=== PATIENT | female | born 1950 | race Caucasian/White ===

== ENCOUNTER → 2017-02-17 | Outpatient (CLI) | payer MEDICARE, OTHER ==
[2017-02-17 09:51] LABS: Basophils # (auto) 0 uL; Basophils % (auto) 0.4 % (0.0-2.0); Eosinophils # (auto) 0.2 uL; Eosinophils % (auto) 3.5 % (0.0-7.0); Hematocrit 39.2 % (36.0-46.0); Hemoglobin 13.5 g/dL (12.2-16.2); Lymphocytes # (auto) 1.5 uL; Lymphocytes % (auto) 26.3 % (10.0-50.0); Mean Corpuscular Hemoglobin 31.7 pg (28.0-32.0); Mean Corpuscular Hgb Conc. 34.4 g/dL (32.0-36.0); Mean Corpuscular Volume 92.1 fL (80.0-100.0); Mean Platelet Volume 6.7 fL (7.4-10.4); Monocytes # (auto) 0.4 uL; Monocytes % (auto) 7.7 % (0.0-12.0); Neutrophils # (auto) 3.4 uL; Neutrophils % (auto) 62.1 % (37.0-80.0); Platelet Count (auto) 341 10^3/uL (140-450); Red Cell Distribution Width 12.9 % (11.6-16.0); White Blood Cell 5.5 10^3/uL (4.4-10.8)
[2017-02-17 10:06] LABS: Urine Bilirubin Negative (Negative); Urine Blood Negative /uL (Negative); Urine Color Yellow (Yellow); Urine Glucose Normal (Normal); Urine Ketone Negative (Negative); Urine Mucus FEW (None Seen); Urine RBC 1 /hpf (0 - 4); Urine Squamous Epithelial Cell FEW /hpf (<5); Urine Urobilinogen Normal (Negative); Urine pH 5.5 (5.0-8.0)
[2017-02-17 10:17] LABS: Albumin 3.9 g/dL (3.4-5.0); BUN/Creatinine Ratio 39.7; Bilirubin, Total 0.6 mg/dL (0.2-1.0); Calcium 9.2 mg/dL (8.5-10.1); Potassium 4.6 mmol/L (3.5-5.1); Total Protein 7.6 g/dL (6.4-8.2)
[2017-02-17 10:31] LABS: Urine Nitrite POSITIVE (Negative)
[2017-02-17 13:53] LABS: INR 0.91 (0.9-1.15); Prothrombin Time 10.3 sec (9.37-12.3)
== END | disposition home or self-care (01) ==
LOC: LAB 09:25
PROVIDERS: ATTEND Orthopaedic Surgery
DX: S43.421A Sprain of right rotator cuff capsule, initial encounter (principal)
CPT/HCPCS: 36415; 80053; 81001; 85025; 85610; 85730

== ENCOUNTER 2018-11-27 19:50 | Emergency (ER) | payer MEDICARE, OTHER ==
[~2018-11-27] VITALS: Ht 175.3 cm; Wt 81.6 kg
[2018-11-27 19:56] VITALS: BP 120/80
== END 2018-11-27 21:44 | disposition left against medical advice (07) ==
LOC: ER 19:50 → EDBD 19:50 → ER 21:44
DX: R55 Syncope and collapse (principal); Z53.21 Procedure and treatment not carried out due to patient leaving prior to being seen by health care provider

== ENCOUNTER 2024-03-18 23:30 | Inpatient (IN) | payer MEDICARE, OTHER ==
[~2024-03-18] VITALS: Ht 167.6 cm; Wt 89.0 kg
[~2024-03-18 23:30] MED LIST: AZIT-43 PO; PRED20TA2 PO
[2024-03-18] MEDS: cefTRIAXone 1GM/50ML D5W 50 ML IV ONE (23:44)
[2024-03-18 23:54] VITALS: PULSE 100; RESP 30; O2SAT 95
[2024-03-18 23:59] LABS: Basophils # (auto) 0.1 10 ^3/uL (0-0.2); Basophils % (auto) 0.6 % (0.0-2.0); Eosinophils # (auto) 0.5 10 ^3/uL (0-0.8); Eosinophils % (auto) 3.5 % (0.0-7.0); Hemoglobin 14.2 g/dL (12.2-16.2); Lymphocytes # (auto) 4.4 10 ^3/uL (0.4-5.4); Mean Corpuscular Hemoglobin 32.6 pg (28.0-32.0); Mean Corpuscular Hgb Conc. 33.8 g/dL (32.0-36.0); Mean Corpuscular Volume 96.5 fL (80.0-100.0); Monocytes # (auto) 0.7 10 ^3/uL (0-1.3); Monocytes % (auto) 4.8 % (0.0-12.0); Neutrophils # (auto) 8.9 10 ^3/uL (1.6-8.6); Neutrophils % (auto) 61.1 % (37.0-80.0); Red Blood Cells 4.36 10^6/uL (4.0-5.20); Red Cell Distribution Width 14.5 % (11.8-14.3); White Blood Cell 14.5 10^3/uL (4.4-10.8)
[2024-03-19] VITALS (33 sets, daily range): BP systolic 85–145; BP diastolic 41–74; PULSE 53–103; RESP 16–20; TEMP 99–99.9; O2SAT 94–99
[2024-03-19 00:01] LABS: Chloride 105 mmol/L (98-107); Potassium 3.3 mmol/L (3.5-5.1); Sodium 139 mmol/L (136-145)
[2024-03-19 00:02] LABS: Anion Gap 10 (5-15); Calcium 9.3 mg/dL (8.7-10.4); Carbon Dioxide 24 mmol/L (20-30)
[2024-03-19 00:07] LABS: BUN/Creatinine Ratio 21.6 (10.0-20.0); Blood Urea Nitrogen 19 mg/dL (9-23); Glucose 181 mg/dL (74-106)
[2024-03-19] MEDS: AZITHROMYCIN 500MG/ 250ML 250 ML IV ONE (00:14)
[2024-03-19] MEDS: methylPREDNISolone SOD SUCC 125 MG/2 ML VL IV ONE (00:19)
[2024-03-19 00:24] LABS: Lactic Acid w/Reflex 2.3 mmol/L (0.4-2.0)
[2024-03-19] MEDS: ALBUTEROL SULF 2.5 MG/0.5ML(0.5%) NEB SOLN NEB ONE (00:26)
[2024-03-19] MEDS: IPRATROPIUM BROM 0.5 MG/2.5ML INH SOL NEB ONE (00:26)
[2024-03-19] MEDS: LORazepam 2MG/ML-1ML VIAL IV ONE (01:13)
[2024-03-19] MEDS: SUCCINYLCHOLINE CHLORIDE 20 MG/ML 10ML VIAL IV ONE ×2 (02:04→02:13)
[2024-03-19] MEDS: ETOMIDATE (2MG/ML) 20ML VIAL IV ONE ×2 (02:12→03:19)
[2024-03-19] MEDS: PROPOFOL 100 ML IV SCH (02:16)
[2024-03-19] MEDS: ROCURONIUM 10MG/ML 10ML VIAL IV ONE ×3 (02:38→04:39)
[2024-03-19] MEDS: PROPOFOL 100 ML IV ONE (03:20)
[2024-03-19] MEDS: IOHEXOL 350 MG/ML 100ML IJ ONE (03:57)
[2024-03-19 04:15] LABS: Base Excess -5.6 mmol/L (-2.0-2.0)
[2024-03-19] MEDS: fentaNYL Drip 2500mCg/250mlNS 250 ML IV SCH (04:33)
[2024-03-19 04:52] LABS: INR 0.98 (0.9-1.15); Partial Thromboplastin Time 23.1 SEC (24.5-34.5); Prothrombin Time 10.4 sec (9.3-11.8)
[2024-03-19 05:11] LABS: Urine Bacteria None Seen /hpf (None Seen)
[2024-03-19 05:30] LABS: Urine Blood Negative /uL (Negative); Urine Clarity Clear (Clear); Urine Color Light-Yellow (Yellow); Urine Hyaline Cast FEW /lpf (0 - 2); Urine Mucus FEW (None Seen); Urine Protein, UAD TRACE (Negative); Urine Urobilinogen Normal (Negative); Urine WBC <1 /hpf (0 - 5)
[2024-03-19] MEDS ORDERED: MORPHINE SULFATE INJ 2 MG/ml SYRG IV PRN (06:15)
[2024-03-19] MEDS ORDERED: ACETAMINOPHEN 650 MG RECT SUPP PR PRN (06:15)
[2024-03-19] MEDS ORDERED: DOCUSATE SOD 100 MG CAP PO PRN (06:15)
[2024-03-19] MEDS ORDERED: DEXTROSE (50%) 50ML SYRG IV PRN (06:15)
[2024-03-19] MEDS: POTASSIUM CHL 20MEQ/100ML 100 ML IV ONE (06:15)
[2024-03-19] MEDS ORDERED: NITROGLYCERIN 0.4 MG SL TAB SL PRN (06:15)
[2024-03-19 06:17] LABS: Base Excess -1.9 mmol/L (-2.0-2.0)
[2024-03-19] MEDS: NOREPINEPHRINE 8 MG/250ML KIT 250 ML IV SCH (06:25)
[2024-03-19] MEDS: HEPARIN SODIUM (PORCINE) 5000 UNITS/ML 1ML VIAL IV ONE (06:44)
[2024-03-19] MEDS: HEPARIN DRIP/D5W 100UNITS/ML 250 ML IV SCH (06:57)
[2024-03-19] MEDS: ACCU-CHEK COMFORT CURVE STRIP VI SCH (07:00)
[2024-03-19] MEDS: InsuLIN REG 1unit/0.01ml Soln (100units/ml) SC SCH (07:00)
[2024-03-19] MEDS: MIDAZOLAM DRIP 50 mg/50mL 50 ML IV SCH (07:30)
[2024-03-19 09:21] LABS: Basophils # (auto) 0 10 ^3/uL (0-0.2); Basophils % (auto) 0.1 % (0.0-2.0); Eosinophils # (auto) 0 10 ^3/uL (0-0.8); Eosinophils % (auto) 0.1 % (0.0-7.0); Hematocrit 38.9 % (36.0-46.0); Hemoglobin 13.4 g/dL (12.2-16.2); Lymphocytes # (auto) 0.5 10 ^3/uL (0.4-5.4); Lymphocytes % (auto) 3.9 % (10.0-50.0); Mean Corpuscular Hemoglobin 33.1 pg (28.0-32.0); Mean Corpuscular Hgb Conc. 34.5 g/dL (32.0-36.0); Mean Corpuscular Volume 95.9 fL (80.0-100.0); Monocytes # (auto) 0.3 10 ^3/uL (0-1.3); Neutrophils % (auto) 93.9 % (37.0-80.0); Red Blood Cells 4.06 10^6/uL (4.0-5.20); Red Cell Distribution Width 14.7 % (11.8-14.3); White Blood Cell 12.8 10^3/uL (4.4-10.8)
[2024-03-19 09:32] LABS: Alanine Aminotransferase 34 U/L (7-40); Albumin 4.3 g/dL (3.2-4.8); Alkaline Phosphatase 58 U/L (46-116); Anion Gap 12 (5-15); Aspartate Aminotransferase 38 U/L (13-40); BUN/Creatinine Ratio 21.3 (10.0-20.0); Blood Urea Nitrogen 17 mg/dL (9-23); Calcium 8.8 mg/dL (8.5-10.1); Carbon Dioxide 24 mmol/L (20-30); Chloride 102 mmol/L (98-107); Cholesterol 181 mg/dL (< 200); Glucose 196 mg/dL (74-106); LDL Cholesterol 116 mg/dL (< 100); Magnesium 1.7 mg/dL (1.6-2.6); Sodium 138 mmol/L (136-145); Triglycerides 95 mg/dL (< 150)
[2024-03-19 09:33] LABS: HDL Cholesterol 51 mg/dL (40-59)
[2024-03-19 09:34] LABS: Total Protein 6.6 g/dL (5.7-8.2)
[2024-03-19] MEDS ORDERED: ENOXAPARIN SOD 40 MG/0.4 ML SYRINGE SC SCH (10:00)
[2024-03-19] MEDS: ENOXAPARIN SOD 80 MG/0.8ML SYRINGE SC SCH (10:00)
[2024-03-19] MEDS: methylPREDNISolone SOD SUCC 40 MG/ML VL IV ONE (13:04)
[2024-03-19] MEDS: PANTOPRAZOLE 40 MG/10 ML VIAL INJ IV ONE (13:04)
[2024-03-19] MEDS: DOXYCYCLINE 100MG/250ML 250 ML IV SCH (13:05)
[2024-03-19 13:43] LABS: Lactic Acid w/Reflex 4.6 mmol/L (0.4-2.0)
[2024-03-19] MEDS: cefTRIAXone 1GM/50ML D5W 50 ML IV SCH (21:00)
[2024-03-19] MEDS: methylPREDNISolone SOD SUCC 40 MG/ML VL IV SCH (21:50)
[2024-03-19] MEDS: Jevity 1.2 Cal/Fiber 1 Liter GT SCH (22:00)
[2024-03-19] MEDS ORDERED: AZITHROMYCIN 500MG/ 250ML 250 ML IV SCH (22:00)
[2024-03-20] VITALS (110 sets, daily range): BP systolic 74–153; BP diastolic 31–110; PULSE 40–98; RESP 14–20; TEMP 98.1–99; O2SAT 90–100
[2024-03-20 04:32] LABS: Alanine Aminotransferase 33 U/L (7-40); Albumin 4.1 g/dL (3.2-4.8); Alkaline Phosphatase 51 U/L (46-116); Anion Gap 9 (5-15); Aspartate Aminotransferase 48 U/L (13-40); BUN/Creatinine Ratio 21.1 (10.0-20.0); Basophils # (auto) 0 10 ^3/uL (0-0.2); Blood Urea Nitrogen 15 mg/dL (9-23); Calcium 9.3 mg/dL (8.7-10.4); Carbon Dioxide 24 mmol/L (20-30); Chloride 105 mmol/L (98-107); Eosinophils # (auto) 0 10 ^3/uL (0-0.8); Glucose 209 mg/dL (74-106); Hematocrit 39.5 % (36.0-46.0); Hemoglobin 13.1 g/dL (12.2-16.2); Lymphocytes # (auto) 0.6 10 ^3/uL (0.4-5.4); Lymphocytes % (auto) 3.9 % (10.0-50.0); Magnesium 1.9 mg/dL (1.6-2.6); Mean Corpuscular Hgb Conc. 33.2 g/dL (32.0-36.0); Mean Corpuscular Volume 96.3 fL (80.0-100.0); Monocytes # (auto) 0.6 10 ^3/uL (0-1.3); Monocytes % (auto) 4.1 % (0.0-12.0); Neutrophils # (auto) 13.2 10 ^3/uL (1.6-8.6); Potassium 3.5 mmol/L (3.5-5.1); Red Blood Cells 4.11 10^6/uL (4.0-5.20); Red Cell Distribution Width 14.8 % (11.8-14.3); Sodium 138 mmol/L (136-145); White Blood Cell 14.4 10^3/uL (4.4-10.8)
[2024-03-20 04:33] LABS: Bilirubin, Total 0.8 mg/dL (0.2-1.0); Total Protein 6.5 g/dL (5.7-8.2)
[2024-03-20 04:39] LABS: Lactic Acid w/Reflex 3.3 mmol/L (0.4-2.0)
[2024-03-20 09:15] LABS: Base Excess -1.4 mmol/L (-2.0-2.0)
[2024-03-20] MEDS: NOREPINEPHRINE 8 MG/250ML KIT 250 ML IV SCH (09:30)
[2024-03-20] MEDS: MAGNESIUM SULFATE 1GM/100ML 100 ML IV ONE (10:52)
[2024-03-20] MEDS: PANTOPRAZOLE 40 MG/10 ML VIAL INJ IV SCH (10:53)
[2024-03-20] MEDS: methylPREDNISolone SOD SUCC 40 MG/ML VL IV SCH (10:54)
[2024-03-20] MEDS: POTASSIUM EFFERVESENT TAB 25 MEQ GT ONE (10:55)
[2024-03-20] MEDS ORDERED: ROSU20TA14 PO (18:50)
[2024-03-20] MEDS ORDERED: POTA-36 PO (18:50)
[2024-03-20] MEDS ORDERED: FURO20TA3 PO (18:50)
[2024-03-20] MEDS ORDERED: CITA-73 PO (18:50)
[2024-03-20] MEDS ORDERED: NIFE1TAB31 PO (18:50)
[2024-03-20] MEDS ORDERED: ASPI-543 PO (18:50)
[2024-03-20] MEDS ORDERED: ALBU2TAB11 PO (18:50)
[2024-03-20] MEDS ORDERED: HYDR25TA88 PO (18:50)
[2024-03-20] MEDS ORDERED: APIX5TAB PO (18:50)
[2024-03-20] MEDS ORDERED: CHOL20007 PO (18:50)
[2024-03-20] MEDS ORDERED: LISI20TA56 PO (18:50)
[2024-03-20 19:19] LABS: Base Excess -0.2 mmol/L (-2.0-2.0)
[2024-03-21] VITALS (103 sets, daily range): BP systolic 101–181; BP diastolic 40–98; PULSE 41–96; RESP 7–27; TEMP 98.1–98.6; O2SAT 91–100
[2024-03-21 03:57] LABS: Basophils # (auto) 0 10 ^3/uL (0-0.2); Basophils % (auto) 0.1 % (0.0-2.0); Eosinophils # (auto) 0 10 ^3/uL (0-0.8); Hematocrit 37.1 % (36.0-46.0); Hemoglobin 12.2 g/dL (12.2-16.2); Lymphocytes # (auto) 0.7 10 ^3/uL (0.4-5.4); Lymphocytes % (auto) 5.4 % (10.0-50.0); Mean Corpuscular Hgb Conc. 32.9 g/dL (32.0-36.0); Mean Corpuscular Volume 97.2 fL (80.0-100.0); Monocytes # (auto) 0.9 10 ^3/uL (0-1.3); Monocytes % (auto) 6.9 % (0.0-12.0); Neutrophils % (auto) 87.6 % (37.0-80.0); Nucleated Red Blood Cells % 0.2 %; Red Blood Cells 3.81 10^6/uL (4.0-5.20); Red Cell Distribution Width 14.9 % (11.8-14.3); White Blood Cell 12.5 10^3/uL (4.4-10.8)
[2024-03-21 04:33] LABS: Alanine Aminotransferase 28 U/L (7-40); Alkaline Phosphatase 43 U/L (46-116); BUN/Creatinine Ratio 29.3 (10.0-20.0); Blood Urea Nitrogen 22 mg/dL (9-23); Chloride 105 mmol/L (98-107); Glucose 170 mg/dL (74-106); Magnesium 2.3 mg/dL (1.6-2.6); Potassium 4.2 mmol/L (3.5-5.1); Sodium 141 mmol/L (136-145)
[2024-03-21 04:34] LABS: Albumin 3.8 g/dL (3.2-4.8); Aspartate Aminotransferase 40 U/L (13-40)
[2024-03-21 04:35] LABS: Bilirubin, Total 0.5 mg/dL (0.2-1.0); Total Protein 6.1 g/dL (5.7-8.2)
[2024-03-21 05:09] LABS: Anion Gap 9 (5-15); Carbon Dioxide 27 mmol/L (20-30)
[2024-03-21 07:37] LABS: Base Excess 4.5 mmol/L (-2.0-2.0)
[2024-03-21] MEDS: SODIUM CHLORIDE 0.9% 2,000 ML IV ONE (14:13)
[2024-03-21] MEDS: EPINEPHrine HCL 0.5 ML NEB NEB ONE (16:15)
[2024-03-21] MEDS: DexAMETHasone SOD PHOS 10MG/1ML VIAL INJ IV ONE (16:15)
[2024-03-21] MEDS: DexAMETHasone SOD PHOS 4 MG/1ML SDV INJ ONE (16:17)
[2024-03-21] MEDS: EPINEPHrine HCL 0.5 ML NEB ONE (16:17)
[2024-03-21 16:28] LABS: Lactic Acid w/Reflex 5.9 mmol/L (0.4-2.0)
[2024-03-21] MEDS: SODIUM CHLORIDE 0.9% 1,000 ML IV SCH (17:39)
[2024-03-21 17:42] LABS: Base Excess 1.8 mmol/L (-2.0-2.0)
[2024-03-21] MEDS ORDERED: hydrALAZINE HCL 20 MG/ML VL IV PRN (18:00)
[2024-03-21] MEDS ORDERED: DexAMETHasone SOD PHOS 4 MG/1ML SDV INJ IV SCH (18:00)
[2024-03-21] MEDS: ALBUTEROL SULF 2.5 MG/0.5ML(0.5%) NEB SOLN NEB PRN (19:03)
[2024-03-21] MEDS: IPRATROPIUM BROM 0.5 MG/2.5ML INH SOL NEB PRN (19:03)
[2024-03-21] MEDS: LACTULOSE 20Gm/30ML SOLN PO SCH (22:33)
[2024-03-22] VITALS (36 sets, daily range): BP systolic 138–169; BP diastolic 63–87; PULSE 57–74; RESP 9–20; TEMP 97.8–99; O2SAT 95–100
[2024-03-22] MEDS: DexAMETHasone SOD PHOS 4 MG/1ML SDV INJ IV SCH
[2024-03-22 04:43] LABS: Basophils # (auto) 0 10 ^3/uL (0-0.2); Basophils % (auto) 0.3 % (0.0-2.0); Eosinophils # (auto) 0 10 ^3/uL (0-0.8); Hematocrit 37.1 % (36.0-46.0); Hemoglobin 12.6 g/dL (12.2-16.2); Lymphocytes # (auto) 0.5 10 ^3/uL (0.4-5.4); Lymphocytes % (auto) 4.5 % (10.0-50.0); Mean Corpuscular Hemoglobin 32.7 pg (28.0-32.0); Mean Corpuscular Volume 96.2 fL (80.0-100.0); Monocytes # (auto) 0.3 10 ^3/uL (0-1.3); Neutrophils # (auto) 10.2 10 ^3/uL (1.6-8.6); Neutrophils % (auto) 92.2 % (37.0-80.0); Red Blood Cells 3.86 10^6/uL (4.0-5.20); Red Cell Distribution Width 14.6 % (11.8-14.3); White Blood Cell 11.1 10^3/uL (4.4-10.8)
[2024-03-22 04:55] LABS: Anion Gap 5 (5-15); Carbon Dioxide 27 mmol/L (20-30); Chloride 108 mmol/L (98-107); Potassium 3.9 mmol/L (3.5-5.1); Sodium 140 mmol/L (136-145)
[2024-03-22 04:56] LABS: Calcium 8.5 mg/dL (8.5-10.1)
[2024-03-22 05:01] LABS: Blood Urea Nitrogen 18 mg/dL (9-23); Glucose 152 mg/dL (74-106)
[2024-03-22] MEDS: ONDANSETRON HCL 4 MG/2 ML VIAL IV PRN (05:08)
[2024-03-22 05:22] LABS: Lactic Acid w/Reflex 2.4 mmol/L (0.4-2.0)
[2024-03-22] MEDS ORDERED: LACTULOSE 20Gm/30ML SOLN PO PRN (06:45)
[2024-03-22] MEDS: SODIUM CHLORIDE 0.9% 1,000 ML IV SCH (09:35)
[2024-03-22] MEDS: NIFEdipine ER 30 MG TAB PO SCH (09:39)
[2024-03-22] MEDS ORDERED: PATIENTS OWN MEDICATION (Citalopram Hydrobromide 40 MG) PO SCH (10:00)
[2024-03-22 11:04] LABS: Rapid Influenza A Negative (Negative); Rapid Influenza B Negative (Negative)
[2024-03-22] MEDS: CITALOPRAM HYDROBR 20 MG TAB PO SCH (12:40)
[2024-03-22] MEDS: LISINOPRIL 20 MG TAB PO SCH (12:41)
[2024-03-22 12:47] LABS: COVID19 ANTIGEN SOFIA FIA NEGATIVE (NEGATIVE)
[2024-03-22] MEDS ORDERED: hydrALAZINE HCL 20 MG/ML VL IV PRN ×2 (14:00)
[2024-03-22] MEDS ORDERED: ALBU108A5 INH (16:05)
[2024-03-22] MEDS ORDERED: ALBU0.084 INH (16:09)
[2024-03-22] MEDS ORDERED: HYDR25TA4 PO (16:09)
[2024-03-22] MEDS ORDERED: BUDE1AER16 INH (16:09)
[2024-03-22] MEDS: LORazepam 0.5 MG TAB PO PRN (16:50)
[2024-03-22] MEDS ORDERED: PATIENTS OWN MEDICATION (Rosuvastatin Calcium (Crestor) 20 MG) PO SCH (22:00)
[2024-03-22] MEDS: ATORVASTATIN 20 MG TAB PO SCH (22:08)
[2024-03-23] VITALS (7 sets, daily range): BP systolic 124–129; BP diastolic 63–64; PULSE 61–75; RESP 16–18; TEMP 36.4; O2SAT 95–98
[2024-03-23] MEDS: DOXYCYCLINE 100MG/250ML 250 ML IV SCH (05:32)
[2024-03-23 06:43] LABS: Alanine Aminotransferase 31 U/L (7-40); Albumin 4.1 g/dL (3.2-4.8); Alkaline Phosphatase 49 U/L (46-116); Anion Gap 6 (5-15); Aspartate Aminotransferase 24 U/L (13-40); BUN/Creatinine Ratio 24.1 (10.0-20.0); Bilirubin, Total 0.9 mg/dL (0.2-1.0); Blood Urea Nitrogen 14 mg/dL (9-23); Calcium 9.3 mg/dL (8.5-10.1); Carbon Dioxide 29 mmol/L (20-30); Chloride 104 mmol/L (98-107); Glucose 118 mg/dL (74-106); Potassium 4.4 mmol/L (3.5-5.1); Sodium 139 mmol/L (136-145); Total Protein 6.1 g/dL (5.7-8.2)
[2024-03-23 06:49] LABS: Basophils # (auto) 0 10 ^3/uL (0-0.2); Basophils % (auto) 0.1 % (0.0-2.0); Eosinophils # (auto) 0 10 ^3/uL (0-0.8); Hemoglobin 13.5 g/dL (12.2-16.2); Lymphocytes # (auto) 0.8 10 ^3/uL (0.4-5.4); Lymphocytes % (auto) 7.3 % (10.0-50.0); Mean Corpuscular Hemoglobin 32.4 pg (28.0-32.0); Mean Corpuscular Hgb Conc. 33.9 g/dL (32.0-36.0); Mean Corpuscular Volume 95.6 fL (80.0-100.0); Monocytes % (auto) 8.9 % (0.0-12.0); Neutrophils # (auto) 9.3 10 ^3/uL (1.6-8.6); Neutrophils % (auto) 83.7 % (37.0-80.0); Red Blood Cells 4.18 10^6/uL (4.0-5.20); Red Cell Distribution Width 14.3 % (11.8-14.3); White Blood Cell 11.1 10^3/uL (4.4-10.8)
[2024-03-23] MEDS ORDERED: DOX100T PO (09:19)
[2024-03-23] MEDS: hydrALAZINE HCL 25 MG TAB PO SCH (10:23)
[2024-03-23] MEDS ORDERED: DOXYCYCLINE 100 MG TAB/CAP PO SCH (22:00)
== END 2024-03-23 13:31 | disposition home health service (06) | DRG 871 ==
LOC: EDBD 23:30 → ER 23:30 → TELE 03-19 06:23 → ICU WEST 03-19 18:25 → TELE-WESTW 03-22 15:55
PROVIDERS: ADMIT Internal Medicine Pulmonary Disease; ATTEND Internal Medicine Pulmonary Disease
PROC: 5A0935A Assistance with Respiratory Ventilation, Less than 24 Consecutive Hours, High Flow/Velocity Cannula (ICD-10-PCS; 2024-03-18)
PROC: 5A1945Z Respiratory Ventilation, 24-96 Consecutive Hours (ICD-10-PCS; principal; 2024-03-19)
PROC: 0BH17EZ Insertion of Endotracheal Airway into Trachea, Via Natural or Artificial Opening (ICD-10-PCS; 2024-03-19)
DX: A41.9 Sepsis, unspecified organism (principal); G93.41 Metabolic encephalopathy; J15.69 Pneumonia due to other Gram-negative bacteria; I21.A1 Myocardial infarction type 2; R65.21 Severe sepsis with septic shock; J96.01 Acute respiratory failure with hypoxia; J96.02 Acute respiratory failure with hypercapnia; J15.9 Unspecified bacterial pneumonia; J12.9 Viral pneumonia, unspecified; J44.0 Chronic obstructive pulmonary disease with (acute) lower respiratory infection; J44.1 Chronic obstructive pulmonary disease with (acute) exacerbation; F10.139 Alcohol abuse with withdrawal, unspecified; Z20.822 Contact with and (suspected) exposure to COVID-19; E78.5 Hyperlipidemia, unspecified; E87.6 Hypokalemia; I10 Essential (primary) hypertension; I71.21 Aneurysm of the ascending aorta, without rupture; E66.01 Morbid (severe) obesity due to excess calories; I35.0 Nonrheumatic aortic (valve) stenosis; Y90.9 Presence of alcohol in blood, level not specified; Z68.35 Body mass index [BMI] 35.0-35.9, adult; Z79.01 Long term (current) use of anticoagulants; Z81.8 Family history of other mental and behavioral disorders; Z80.42 Family history of malignant neoplasm of prostate; Z86.718 Personal history of other venous thrombosis and embolism; Z91.041 Radiographic dye allergy status
CPT/HCPCS: 36415; 36600; 71045; 71275; 80048; 80053; 80061; 80320; 81001; 82140; 82805; 82962; 83036; 83605; 83735; 83880; 84443; 84484; 85025; 85379; 85610; 85730; 87040; 87070; 87081; 87086; 87205; 87426; 87804; 92610; 93005; 93306; 93970; 94002; 94003; 94640; 97163; 99291; C9113; G0378; J0330; J1100; J1815; J2405; J2704; J3480; J3490

== ENCOUNTER 2024-03-29 07:17 | Inpatient (IN) | payer MEDICARE, OTHER ==
[2024-03-29] VITALS (7 sets, daily range): BP systolic 109; BP diastolic 65; PULSE 67–77; RESP 14–21; O2SAT 95–100
[~2024-03-29] VITALS: Ht 175.3 cm; Wt 84.3 kg
[~2024-03-29 07:17] MED LIST changes: +ALBU0.084 INH; +ALBU108A5 INH; +APIX5TAB PO; -AZIT-43 PO; +BUDE1AER16 INH; +CHOL20007 PO; +CITA-73 PO; +DOX100T PO; +FURO20TA3 PO; +HYDR25TA4 PO; +HYDR25TA88 PO; +LISI20TA56 PO; +NIFE1TAB31 PO; +POTA-36 PO; -PRED20TA2 PO; +ROSU20TA14 PO
[2024-03-29] MEDS: SODIUM CHLORIDE 0.9% 1,000 ML IV ONE (08:30)
[2024-03-29] MEDS: methylPREDNISolone SOD SUCC 125 MG/2 ML VL IV ONE (08:50)
[2024-03-29] MEDS: AZITHROMYCIN 500MG/ 250ML 250 ML IV ONE (08:50)
[2024-03-29 08:53] LABS: Basophils # (auto) 0 10 ^3/uL (0-0.2); Basophils % (auto) 0.2 % (0.0-2.0); Eosinophils # (auto) 0.5 10 ^3/uL (0-0.8); Eosinophils % (auto) 5.4 % (0.0-7.0); Hematocrit 40.4 % (36.0-46.0); Hemoglobin 13.7 g/dL (12.2-16.2); Lymphocytes # (auto) 1.3 10 ^3/uL (0.4-5.4); Lymphocytes % (auto) 14.4 % (10.0-50.0); Mean Corpuscular Hemoglobin 32.6 pg (28.0-32.0); Mean Corpuscular Volume 95.9 fL (80.0-100.0); Monocytes # (auto) 0.7 10 ^3/uL (0-1.3); Monocytes % (auto) 7.8 % (0.0-12.0); Neutrophils # (auto) 6.7 10 ^3/uL (1.6-8.6); Neutrophils % (auto) 72.2 % (37.0-80.0); Red Blood Cells 4.22 10^6/uL (4.0-5.20); Red Cell Distribution Width 14.2 % (11.8-14.3); White Blood Cell 9.3 10^3/uL (4.4-10.8)
[2024-03-29] MEDS: IPRATROPIUM BROM 0.5 MG/2.5ML INH SOL NEB ONE ×2 (08:58→14:01)
[2024-03-29] MEDS: ALBUTEROL SULF 2.5 MG/0.5ML(0.5%) NEB SOLN NEB ONE ×2 (08:58→14:01)
[2024-03-29 09:09] LABS: INR 1.01 (0.9-1.15); Partial Thromboplastin Time 21.8 SEC (24.5-34.5); Prothrombin Time 10.7 sec (9.3-11.8)
[2024-03-29 09:11] LABS: Alanine Aminotransferase 51 U/L (7-40); Albumin 4.3 g/dL (3.2-4.8); Alkaline Phosphatase 47 U/L (46-116); Anion Gap 5 (5-15); Aspartate Aminotransferase 24 U/L (13-40); BUN/Creatinine Ratio 15.6 (10.0-20.0); Blood Urea Nitrogen 10 mg/dL (9-23); Calcium 9.2 mg/dL (8.5-10.1); Carbon Dioxide 28 mmol/L (20-30); Chloride 106 mmol/L (98-107); Glucose 113 mg/dL (74-106); Magnesium 1.5 mg/dL (1.6-2.6); Potassium 3.5 mmol/L (3.5-5.1); Sodium 139 mmol/L (136-145)
[2024-03-29 09:12] LABS: Total Protein 6.4 g/dL (5.7-8.2)
[2024-03-29] MEDS: IOHEXOL 350 MG/ML 100ML IJ ONE (12:49)
[2024-03-29] MEDS: MAGNESIUM SULFATE 1GM/100ML 100 ML IV SCH (13:00)
[2024-03-29] MEDS ORDERED: LORazepam 0.5 MG TAB PO PRN (14:00)
[2024-03-29] MEDS ORDERED: ACETAMINOPHEN 325 MG TAB PO PRN ×2 (14:00→14:30)
[2024-03-29] MEDS ORDERED: NITROGLYCERIN 0.4 MG SL TAB SL PRN ×2 (14:00→14:30)
[2024-03-29] MEDS ORDERED: MORPHINE SULFATE INJ 2 MG/ml SYRG IV PRN ×4 (14:00→15:00)
[2024-03-29] MEDS ORDERED: HYDROcodone-ACET 5/325MG TAB PO PRN ×2 (14:00→14:30)
[2024-03-29] MEDS ORDERED: ONDANSETRON HCL 4 MG/2 ML VIAL IV PRN ×2 (14:00→14:30)
[2024-03-29] MEDS ORDERED: ALBUTEROL SULF 2.5 MG/0.5ML(0.5%) NEB SOLN NEB SCH (14:00)
[2024-03-29] MEDS ORDERED: DOCUSATE SOD 100 MG CAP PO PRN (14:00)
[2024-03-29] MEDS ORDERED: IPRATROPIUM BROM 0.5 MG/2.5ML INH SOL NEB SCH (14:00)
[2024-03-29 15:17] LABS: Urine Bacteria None Seen /hpf (None Seen)
[2024-03-29 15:27] LABS: Urine Blood Negative /uL (Negative); Urine Clarity Clear (Clear); Urine Color Yellow (Yellow); Urine Mucus FEW (None Seen); Urine Protein, UAD Negative (Negative); Urine Specific Gravity 1.016 (1.001-1.035); Urine Urobilinogen Normal (Negative); Urine WBC 1 /hpf (0 - 5)
[2024-03-29] MEDS: IPRATROPIUM BROM 0.5 MG/2.5ML INH SOL NEB SCH (18:31)
[2024-03-29] MEDS: ALBUTEROL SULF 2.5 MG/0.5ML(0.5%) NEB SOLN NEB SCH (18:31)
[2024-03-29] MEDS: ATORVASTATIN 20 MG TAB PO SCH (21:40)
[2024-03-29] MEDS: LORazepam 0.5 MG TAB PO PRN (21:41)
[2024-03-29] MEDS: APIXABAN 5 MG TAB PO SCH (21:41)
[2024-03-29] MEDS ORDERED: APIXABAN 5 MG TAB PO SCH (22:00)
[2024-03-29] MEDS ORDERED: PATIENTS OWN MEDICATION (Rosuvastatin Calcium (Crestor) 20 MG) PO SCH (22:00)
[2024-03-30] VITALS (20 sets, daily range): BP systolic 104–151; BP diastolic 50–84; PULSE 62–104; RESP 14–20; TEMP 97.7–98.7; O2SAT 90–100
[2024-03-30] MEDS: PANTOPRAZOLE 40 MG TAB PO SCH (05:47)
[2024-03-30 06:37] LABS: Basophils # (auto) 0 10 ^3/uL (0-0.2); Basophils % (auto) 0.1 % (0.0-2.0); Eosinophils # (auto) 0 10 ^3/uL (0-0.8); Eosinophils % (auto) 0.4 % (0.0-7.0); Hemoglobin 12.5 g/dL (12.2-16.2); Lymphocytes # (auto) 0.5 10 ^3/uL (0.4-5.4); Lymphocytes % (auto) 5.1 % (10.0-50.0); Mean Corpuscular Hemoglobin 32.3 pg (28.0-32.0); Mean Corpuscular Hgb Conc. 33.8 g/dL (32.0-36.0); Mean Corpuscular Volume 95.6 fL (80.0-100.0); Monocytes # (auto) 0.8 10 ^3/uL (0-1.3); Neutrophils # (auto) 8.6 10 ^3/uL (1.6-8.6); Neutrophils % (auto) 86.4 % (37.0-80.0); Red Blood Cells 3.87 10^6/uL (4.0-5.20); Red Cell Distribution Width 13.8 % (11.8-14.3)
[2024-03-30 06:49] LABS: Alanine Aminotransferase 34 U/L (7-40); Albumin 3.8 g/dL (3.2-4.8); Alkaline Phosphatase 37 U/L (46-116); Anion Gap 7 (5-15); Aspartate Aminotransferase 12 U/L (13-40); BUN/Creatinine Ratio 13.8 (10.0-20.0); Bilirubin, Total 0.7 mg/dL (0.2-1.0); Blood Urea Nitrogen 8 mg/dL (9-23); Calcium 9.2 mg/dL (8.7-10.4); Carbon Dioxide 27 mmol/L (20-30); Chloride 106 mmol/L (98-107); Glucose 152 mg/dL (74-106); Potassium 4.5 mmol/L (3.5-5.1); Sodium 140 mmol/L (136-145); Total Protein 5.8 g/dL (5.7-8.2)
[2024-03-30] MEDS: methylPREDNISolone SOD SUCC 40 MG/ML VL IV SCH (08:34)
[2024-03-30] MEDS: CITALOPRAM HYDROBR 20 MG TAB PO SCH (08:34)
[2024-03-30] MEDS: POTASSIUM CHL 10 Meq TABLET PO SCH (08:34)
[2024-03-30] MEDS: LISINOPRIL 20 MG TAB PO SCH (08:34)
[2024-03-30] MEDS: NIFEdipine ER 30 MG TAB PO SCH (08:35)
[2024-03-30] MEDS: hydroCHLOROthiazide 25 MG TAB PO SCH (08:35)
[2024-03-30] MEDS: FUROSEMIDE 20 MG TAB PO SCH (08:35)
[2024-03-30] MEDS: hydrALAZINE HCL 25 MG TAB PO SCH (08:36)
[2024-03-30] MEDS: AZITHROMYCIN 500MG/ 250ML 250 ML IV SCH (09:51)
[2024-03-30] MEDS ORDERED: FUROSEMIDE 20 MG TAB PO SCH (10:00)
[2024-03-30] MEDS ORDERED: PATIENTS OWN MEDICATION (Potassium Chloride (Potassium Chloride Cr) 10 MEQ) PO SCH (10:00)
[2024-03-30] MEDS ORDERED: hydrALAZINE HCL 25 MG TAB PO SCH (10:00)
[2024-03-30] MEDS ORDERED: PATIENTS OWN MEDICATION (Citalopram Hydrobromide 40 MG) PO SCH (10:00)
[2024-03-30] MEDS ORDERED: LISINOPRIL 20 MG TAB PO SCH (10:00)
[2024-03-30] MEDS ORDERED: methylPREDNISolone SOD SUCC 40 MG/ML VL IV SCH (10:00)
[2024-03-30] MEDS ORDERED: hydroCHLOROthiazide 25 MG TAB PO SCH (10:00)
[2024-03-30] MEDS ORDERED: NIFEdipine ER 30 MG TAB PO SCH (10:00)
[2024-03-30] MEDS ORDERED: AZITHROMYCIN 500MG/ 250ML 250 ML IV SCH (10:00)
[2024-03-30] MEDS: cefTRIAXone 1GM/50ML D5W 50 ML IV ONE (13:59)
[2024-03-30] MEDS: DOCUSATE SOD 100 MG CAP PO PRN (22:07)
[2024-03-31] VITALS (19 sets, daily range): BP systolic 102–121; BP diastolic 48–85; PULSE 57–89; RESP 15–18; TEMP 97.9–98.7; O2SAT 94–100
[2024-03-31] MEDS: cefTRIAXone 1GM/50ML D5W 50 ML IV SCH (08:51)
[2024-04-01] VITALS (12 sets, daily range): BP systolic 111–114; BP diastolic 59–68; PULSE 60–80; RESP 15–18; TEMP 97.9–98.3; O2SAT 93–100
[2024-04-01] MEDS ORDERED: DOXY1CAP57 PO (11:26)
[2024-04-01] MEDS ORDERED: LORA-1121 PO (11:26)
[2024-04-01] MEDS ORDERED: APIX5TAB PO (11:26)
== END 2024-04-01 15:00 | disposition home or self-care (01) | DRG 177 ==
LOC: ER 07:17 → EDBD 07:17 → EDUNIT# 07:17 → ER 14:25 → TELE 14:25 → TELE-WESTW 22:00
PROVIDERS: ADMIT Nurse Practitioner Family; ATTEND Family Medicine
DX: J15.69 Pneumonia due to other Gram-negative bacteria (principal); G93.41 Metabolic encephalopathy; J96.21 Acute and chronic respiratory failure with hypoxia; I21.A1 Myocardial infarction type 2; J96.22 Acute and chronic respiratory failure with hypercapnia; J44.1 Chronic obstructive pulmonary disease with (acute) exacerbation; J44.0 Chronic obstructive pulmonary disease with (acute) lower respiratory infection; E87.20 Acidosis, unspecified; F10.139 Alcohol abuse with withdrawal, unspecified; J15.9 Unspecified bacterial pneumonia; I71.21 Aneurysm of the ascending aorta, without rupture; E66.01 Morbid (severe) obesity due to excess calories; E78.5 Hyperlipidemia, unspecified; E83.42 Hypomagnesemia; I35.0 Nonrheumatic aortic (valve) stenosis; I11.0 Hypertensive heart disease with heart failure; F41.9 Anxiety disorder, unspecified; E87.6 Hypokalemia; I50.9 Heart failure, unspecified; I48.91 Unspecified atrial fibrillation; Z87.891 Personal history of nicotine dependence; Z68.27 Body mass index [BMI] 27.0-27.9, adult; Z79.01 Long term (current) use of anticoagulants; Z86.718 Personal history of other venous thrombosis and embolism; Z99.81 Dependence on supplemental oxygen; Z79.4 Long term (current) use of insulin; Z79.899 Other long term (current) drug therapy; Y90.9 Presence of alcohol in blood, level not specified
CPT/HCPCS: 36415; 36600; 71046; 78582; 80053; 81001; 82805; 83735; 83880; 84443; 84484; 85025; 85379; 85610; 85730; 93005; 93970; 94640; 96361; 96365; 96366; 96375; G0378

== ENCOUNTER 2024-04-06 19:55 | Inpatient (IN) | payer MEDICARE, OTHER ==
[~2024-04-06] VITALS: Ht 172.7 cm; Wt 87.4 kg
[~2024-04-06 19:55] MED LIST changes: +DOXY1CAP57 PO; +LORA-1121 PO
[2024-04-06] MEDS: ALBUTEROL SULF 2.5 MG/0.5ML(0.5%) NEB SOLN NEB ONE (20:19)
[2024-04-06] MEDS: IPRATROPIUM BROM 0.5 MG/2.5ML INH SOL NEB ONE (20:19)
[2024-04-06 20:46] LABS: Basophils # (auto) 0 10 ^3/uL (0-0.2); Basophils % (auto) 0.3 % (0.0-2.0); Eosinophils # (auto) 0.4 10 ^3/uL (0-0.8); Eosinophils % (auto) 5.1 % (0.0-7.0); Hematocrit 40.5 % (36.0-46.0); Hemoglobin 13.9 g/dL (12.2-16.2); Lymphocytes # (auto) 2.2 10 ^3/uL (0.4-5.4); Lymphocytes % (auto) 26.4 % (10.0-50.0); Mean Corpuscular Hemoglobin 32.4 pg (28.0-32.0); Mean Corpuscular Hgb Conc. 34.3 g/dL (32.0-36.0); Mean Corpuscular Volume 94.3 fL (80.0-100.0); Monocytes # (auto) 0.5 10 ^3/uL (0-1.3); Monocytes % (auto) 6.4 % (0.0-12.0); Neutrophils # (auto) 5.2 10 ^3/uL (1.6-8.6); Neutrophils % (auto) 61.8 % (37.0-80.0); Nucleated Red Blood Cells % 0.1 %; Red Blood Cells 4.29 10^6/uL (4.0-5.20); Red Cell Distribution Width 13.9 % (11.8-14.3); White Blood Cell 8.4 10^3/uL (4.4-10.8)
[2024-04-06 20:50] LABS: Urine Bacteria None Seen /hpf (None Seen); Urine WBC None Seen /hpf (0 - 5)
[2024-04-06] MEDS: FUROSEMIDE 40 MG/4 ML VIAL IV ONE (20:54)
[2024-04-06] MEDS: methylPREDNISolone SOD SUCC 125 MG/2 ML VL IV ONE (20:55)
[2024-04-06 21:04] LABS: Urine Blood Negative /uL (Negative); Urine Clarity Clear (Clear); Urine Color Colorless (Yellow); Urine Protein, UAD Negative (Negative); Urine Specific Gravity 1.006 (1.001-1.035); Urine Urobilinogen Normal (Negative)
[2024-04-06 21:09] LABS: Alanine Aminotransferase 56 U/L (7-40); Alkaline Phosphatase 49 U/L (46-116); Anion Gap 7 (5-15); BUN/Creatinine Ratio 30.3 (10.0-20.0); Blood Urea Nitrogen 23 mg/dL (9-23); Calcium 9.3 mg/dL (8.5-10.1); Carbon Dioxide 30 mmol/L (20-30); Chloride 101 mmol/L (98-107); Glucose 123 mg/dL (74-106); Potassium 3.2 mmol/L (3.5-5.1); Sodium 138 mmol/L (136-145)
[2024-04-06 21:10] LABS: Albumin 4.3 g/dL (3.2-4.8); Aspartate Aminotransferase 40 U/L (13-40); Bilirubin, Total 0.6 mg/dL (0.2-1.0); Total Protein 6.1 g/dL (5.7-8.2)
[2024-04-06] MEDS ORDERED: IPRATROPIUM BROM 0.5 MG/2.5ML INH SOL NEB PRN (22:45)
[2024-04-06] MEDS ORDERED: ACETAMINOPHEN 325 MG TAB PO PRN (22:45)
[2024-04-06] MEDS ORDERED: ALBUTEROL SULF 2.5 MG/0.5ML(0.5%) NEB SOLN NEB PRN (22:45)
[2024-04-06] MEDS ORDERED: levoFLOXacin 500MG 100 ML IV ONE ×2 (22:45→23:15)
[2024-04-06] MEDS ORDERED: ONDANSETRON HCL 4 MG/2 ML VIAL IV PRN (22:45)
[2024-04-06 23:05] VITALS: BP 99/61; PULSE 81; RESP 32; O2SAT 96
[2024-04-06] MEDS: POTASSIUM CHL 20 Meq TABLET PO ONE (23:55)
[2024-04-06] MEDS: MAGNESIUM SULFATE 1GM/100ML 100 ML IV SCH (23:55)
[2024-04-07] VITALS (11 sets, daily range): BP systolic 101–138; BP diastolic 48–80; PULSE 62–72; RESP 18–22; TEMP 97.6–98.2; O2SAT 93–98
[2024-04-07] MEDS ORDERED: MORPHINE SULFATE INJ 2 MG/ml SYRG IV PRN (00:15)
[2024-04-07] MEDS: DOXYCYCLINE 100MG/250ML 250 ML IV SCH (00:15)
[2024-04-07] MEDS ORDERED: NITROGLYCERIN 0.4 MG SL TAB SL PRN (00:15)
[2024-04-07 05:49] LABS: Basophils # (auto) 0 10 ^3/uL (0-0.2); Basophils % (auto) 0.1 % (0.0-2.0); Eosinophils # (auto) 0 10 ^3/uL (0-0.8); Eosinophils % (auto) 0.2 % (0.0-7.0); Hematocrit 37.8 % (36.0-46.0); Hemoglobin 13.3 g/dL (12.2-16.2); Lymphocytes # (auto) 0.4 10 ^3/uL (0.4-5.4); Mean Corpuscular Hemoglobin 33.2 pg (28.0-32.0); Mean Corpuscular Hgb Conc. 35.2 g/dL (32.0-36.0); Mean Corpuscular Volume 94.2 fL (80.0-100.0); Monocytes # (auto) 0.1 10 ^3/uL (0-1.3); Monocytes % (auto) 0.9 % (0.0-12.0); Neutrophils % (auto) 92.8 % (37.0-80.0); Red Blood Cells 4.01 10^6/uL (4.0-5.20); Red Cell Distribution Width 13.9 % (11.8-14.3); White Blood Cell 6.5 10^3/uL (4.4-10.8)
[2024-04-07 05:58] LABS: Alkaline Phosphatase 44 U/L (46-116)
[2024-04-07 05:59] LABS: Alanine Aminotransferase 48 U/L (7-40); Anion Gap 9 (5-15); Aspartate Aminotransferase 17 U/L (13-40); BUN/Creatinine Ratio 22.4 (10.0-20.0); Bilirubin, Total 0.7 mg/dL (0.2-1.0); Blood Urea Nitrogen 19 mg/dL (9-23); Calcium 9.2 mg/dL (8.7-10.4); Carbon Dioxide 26 mmol/L (20-30); Chloride 102 mmol/L (98-107); Glucose 260 mg/dL (74-106); Potassium 3.9 mmol/L (3.5-5.1); Sodium 137 mmol/L (136-145)
[2024-04-07] MEDS: ASPirin 81 mg TAB PO SCH (09:38)
[2024-04-07] MEDS: APIXABAN 5 MG TAB PO SCH (09:38)
[2024-04-07] MEDS: hydroCHLOROthiazide 25 MG TAB PO SCH (09:39)
[2024-04-07] MEDS: methylPREDNISolone SOD SUCC 40 MG/ML VL IV SCH (09:39)
[2024-04-07] MEDS ORDERED: levoFLOXacin 500MG 100 ML IV SCH (10:00)
[2024-04-07] MEDS: ATORVASTATIN 20 MG TAB PO SCH (21:01)
[2024-04-07] MEDS ORDERED: methylPREDNISolone SOD SUCC 40 MG/ML VL IV SCH (23:30)
[2024-04-07] MEDS ORDERED: IPRATROPIUM BROM 0.5 MG/2.5ML INH SOL NEB PRN (23:30)
[2024-04-07] MEDS ORDERED: ALBUTEROL SULF 2.5 MG/0.5ML(0.5%) NEB SOLN NEB PRN (23:30)
[2024-04-08 00:16] VITALS: O2SAT 94
[2024-04-08 01:00] VITALS: BP 107/67; PULSE 65; RESP 18; TEMP 98.2; O2SAT 96
[2024-04-08 05:00] VITALS: BP 125/53; PULSE 64; RESP 18; TEMP 98.3; O2SAT 96
[2024-04-08 08:30] VITALS: BP 125/75; PULSE 63; RESP 19; TEMP 97.7; O2SAT 98
[2024-04-08] MEDS ORDERED: methylPREDNISolone SOD SUCC 40 MG/ML VL IV SCH (10:00)
== END 2024-04-08 08:35 | disposition left against medical advice (07) | DRG 177 ==
LOC: ER 19:55 → EDBD 19:55 → TELE 04-07 00:07 → TELE-WESTW 04-07 02:38
PROVIDERS: ADMIT Internal Medicine Pulmonary Disease; ATTEND Emergency Medicine
DX: J15.69 Pneumonia due to other Gram-negative bacteria (principal); I21.A1 Myocardial infarction type 2; I50.33 Acute on chronic diastolic (congestive) heart failure; J96.01 Acute respiratory failure with hypoxia; J44.1 Chronic obstructive pulmonary disease with (acute) exacerbation; J44.0 Chronic obstructive pulmonary disease with (acute) lower respiratory infection; I71.21 Aneurysm of the ascending aorta, without rupture; J15.9 Unspecified bacterial pneumonia; I11.0 Hypertensive heart disease with heart failure; I95.9 Hypotension, unspecified; E87.6 Hypokalemia; E83.42 Hypomagnesemia; R73.9 Hyperglycemia, unspecified; R74.01 Elevation of levels of liver transaminase levels; I25.10 Atherosclerotic heart disease of native coronary artery without angina pectoris; E87.8 Other disorders of electrolyte and fluid balance, not elsewhere classified; Z53.29 Procedure and treatment not carried out because of patient's decision for other reasons
CPT/HCPCS: 36415; 71045; 71250; 80053; 81001; 83605; 83735; 83880; 84484; 85025; 87040; 87081; 93005; 94640; G0378; J3490

== ENCOUNTER 2024-05-25 04:25 | Emergency (ER) | payer MEDICARE, OTHER ==
[~2024-05-25] VITALS: Ht 175.3 cm; Wt 189.0 kg
[2024-05-25 04:25] VITALS: BP 173/66; PULSE 66; RESP 16; O2SAT 98
[~2024-05-25 04:25] MED LIST changes: +BUSP15TA60 PO; +GUAI600T76 PO; -HYDR25TA4 PO; +PANT40TA2 PO; +POTA1TAB4 PO
[2024-05-26] MEDS ORDERED: BENZ100C97 PO (06:00)
[2024-05-26] MEDS ORDERED: ATOR40TA52 PO (06:00)
[2024-05-26] MEDS ORDERED: GUAI600T78 PO (06:00)
== END 2024-05-25 06:43 | disposition left against medical advice (07) ==
LOC: ER 04:25
DX: F41.9 Anxiety disorder, unspecified (principal); Z53.21 Procedure and treatment not carried out due to patient leaving prior to being seen by health care provider

== ENCOUNTER 2024-05-25 10:56 | Inpatient (IN) | payer MEDICARE, OTHER ==
[~2024-05-25] VITALS: Ht 175.3 cm; Wt 71.6 kg
[2024-05-25 11:39] LABS: Basophils # (auto) 0 10 ^3/uL (0-0.2); Basophils % (auto) 0.6 % (0.0-2.0); Eosinophils # (auto) 0.1 10 ^3/uL (0-0.8); Eosinophils % (auto) 2.1 % (0.0-7.0); Hematocrit 39.6 % (36.0-46.0); Hemoglobin 13.7 g/dL (12.2-16.2); Lymphocytes # (auto) 0.7 10 ^3/uL (0.4-5.4); Lymphocytes % (auto) 14.8 % (10.0-50.0); Mean Corpuscular Hemoglobin 32.4 pg (28.0-32.0); Mean Corpuscular Hgb Conc. 34.6 g/dL (32.0-36.0); Mean Corpuscular Volume 93.7 fL (80.0-100.0); Monocytes # (auto) 0.5 10 ^3/uL (0-1.3); Neutrophils # (auto) 3.6 10 ^3/uL (1.6-8.6); Neutrophils % (auto) 72.5 % (37.0-80.0); Nucleated Red Blood Cells % 0.1 %; Platelet Count (auto) 254 10^3/uL (140-450); Red Blood Cells 4.23 10^6/uL (4.0-5.20); Red Cell Distribution Width 13.5 % (11.8-14.3)
[2024-05-25 12:05] LABS: Alanine Aminotransferase 18 U/L (7-40); Albumin 4.3 g/dL (3.2-4.8); Alkaline Phosphatase 61 U/L (46-116); Anion Gap 6 (5-15); Aspartate Aminotransferase 15 U/L (13-40); BUN/Creatinine Ratio 28.1 (10.0-20.0); Bilirubin, Total 1.1 mg/dL (0.2-1.0); Blood Urea Nitrogen 18 mg/dL (9-23); Calcium 9.6 mg/dL (8.7-10.4); Carbon Dioxide 26 mmol/L (20-30); Chloride 108 mmol/L (98-107); Glucose 104 mg/dL (74-106); Magnesium 1.7 mg/dL (1.6-2.6); Potassium 4.3 mmol/L (3.5-5.1); Sodium 140 mmol/L (136-145)
[2024-05-25 12:06] LABS: Total Protein 6.3 g/dL (5.7-8.2)
[2024-05-25] MEDS: NITROGLYCERIN 0.4 MG SL TAB SL ONE (12:15)
[2024-05-25 14:27] VITALS: PULSE 82; RESP 19; O2SAT 97
[2024-05-25] MEDS ORDERED: DOCUSATE SOD 100 MG CAP PO PRN (16:30)
[2024-05-25] MEDS ORDERED: hydrALAZINE HCL 20 MG/ML VL IV PRN (16:30)
[2024-05-25] MEDS ORDERED: HYDROcodone-ACET 5/325MG TAB PO PRN (16:30)
[2024-05-25] MEDS ORDERED: ONDANSETRON HCL 4 MG/2 ML VIAL IV PRN (16:30)
[2024-05-25] MEDS ORDERED: ACETAMINOPHEN 325 MG TAB PO PRN (16:30)
[2024-05-25] MEDS ORDERED: NITROGLYCERIN 0.4 MG SL TAB SL PRN (19:00)
[2024-05-25] MEDS ORDERED: MORPHINE SULFATE INJ 2 MG/ml SYRG IV PRN (19:00)
[2024-05-25 19:04] VITALS: PULSE 69; RESP 27; O2SAT 94
[2024-05-25 19:30] VITALS: PULSE 66; RESP 18; O2SAT 100
[2024-05-25] MEDS: SODIUM CHLOR 0.9% PF (SALINE LOCK) 10ML VIAL/SYR IV SCH (21:41)
[2024-05-25] MEDS: APIXABAN 5 MG TAB PO SCH (21:42)
[2024-05-25] MEDS: LORazepam 0.5 MG TAB PO PRN (23:23)
[2024-05-26 05:19] LABS: Basophils # (auto) 0 10 ^3/uL (0-0.2); Basophils % (auto) 1.3 % (0.0-2.0); Eosinophils # (auto) 0.3 10 ^3/uL (0-0.8); Eosinophils % (auto) 8.5 % (0.0-7.0); Hematocrit 36.5 % (36.0-46.0); Hemoglobin 12.8 g/dL (12.2-16.2); Lymphocytes # (auto) 0.7 10 ^3/uL (0.4-5.4); Lymphocytes % (auto) 24.6 % (10.0-50.0); Mean Corpuscular Hemoglobin 32.8 pg (28.0-32.0); Mean Corpuscular Volume 93.8 fL (80.0-100.0); Monocytes # (auto) 0.5 10 ^3/uL (0-1.3); Monocytes % (auto) 16.6 % (0.0-12.0); Neutrophils # (auto) 1.5 10 ^3/uL (1.6-8.6); Nucleated Red Blood Cells % 0.1 %; Platelet Count (auto) 219 10^3/uL (140-450); Red Blood Cells 3.89 10^6/uL (4.0-5.20)
[2024-05-26 05:34] LABS: Alanine Aminotransferase 13 U/L (7-40); Albumin 3.9 g/dL (3.2-4.8); Alkaline Phosphatase 53 U/L (46-116); Anion Gap 5 (5-15); Aspartate Aminotransferase 15 U/L (13-40); BUN/Creatinine Ratio 16.9 (10.0-20.0); Bilirubin, Total 1.3 mg/dL (0.2-1.0); Blood Urea Nitrogen 11 mg/dL (9-23); Calcium 9.3 mg/dL (8.7-10.4); Carbon Dioxide 29 mmol/L (20-30); Chloride 108 mmol/L (98-107); Glucose 109 mg/dL (74-106); Potassium 4.2 mmol/L (3.5-5.1); Sodium 142 mmol/L (136-145); Total Protein 5.8 g/dL (5.7-8.2)
[2024-05-26] MEDS ORDERED: BENZ100C97 PO (06:00)
[2024-05-26] MEDS ORDERED: ATOR40TA52 PO (06:00)
[2024-05-26] MEDS ORDERED: GUAI600T78 PO (06:00)
[2024-05-26 06:02] VITALS: PULSE 62; RESP 16; O2SAT 96
[2024-05-26 06:03] VITALS: BP 148/83; PULSE 62; RESP 19; TEMP 98; O2SAT 96
[2024-05-26 06:24] LABS: Urine Bacteria None Seen /hpf (None Seen)
[2024-05-26 06:51] LABS: Urine Blood Negative /uL (Negative); Urine Clarity Clear (Clear); Urine Color Light-Yellow (Yellow); Urine Mucus FEW (None Seen); Urine Protein, UAD Negative (Negative); Urine Specific Gravity 1.012 (1.001-1.035); Urine Urobilinogen Normal (Negative); Urine WBC 2 /hpf (0 - 5); Urine pH 5.5 (5.0-9.0)
[2024-05-26 08:00] VITALS: PULSE 57
[2024-05-26 08:27] VITALS: BP 136/77; PULSE 55; RESP 20; TEMP 97.6; O2SAT 98
[2024-05-26] MEDS: FAMOTIDINE (10MG/ML) 2ML VL IV SCH (10:06)
[2024-05-26 12:31] VITALS: BP 138/61; PULSE 57; RESP 20; TEMP 98.6; O2SAT 95
== END 2024-05-26 14:00 | disposition left against medical advice (07) | DRG 281 ==
LOC: ER 10:56 → TELE 18:53 → TELE-CENTR 23:52
PROVIDERS: ADMIT Internal Medicine Pulmonary Disease; ATTEND Internal Medicine Pulmonary Disease
DX: I21.4 Non-ST elevation (NSTEMI) myocardial infarction (principal); J44.1 Chronic obstructive pulmonary disease with (acute) exacerbation; I10 Essential (primary) hypertension; F41.9 Anxiety disorder, unspecified; E78.5 Hyperlipidemia, unspecified; I35.0 Nonrheumatic aortic (valve) stenosis; I71.21 Aneurysm of the ascending aorta, without rupture; Z53.29 Procedure and treatment not carried out because of patient's decision for other reasons; Z86.718 Personal history of other venous thrombosis and embolism; Z82.0 Family history of epilepsy and other diseases of the nervous system; Z80.42 Family history of malignant neoplasm of prostate; Z91.041 Radiographic dye allergy status; Z79.01 Long term (current) use of anticoagulants
CPT/HCPCS: 36415; 71045; 80053; 81001; 83735; 83880; 84484; 85025; 93005; 99291; G0378; J3490

== ENCOUNTER 2024-09-15 21:03 | Emergency (ER) | payer MEDICARE, OTHER ==
[~2024-09-15] VITALS: Ht 175.3 cm; Wt 97.6 kg
[2024-09-15 21:03] VITALS: BP 128/71; PULSE 97
[~2024-09-15 21:03] MED LIST changes: -ALBU0.084 INH; -ALBU108A5 INH; +ATOR40TA52 PO; +BENZ100C97 PO; -BUDE1AER16 INH; -CHOL20007 PO; -CITA-73 PO; -DOX100T PO; -DOXY1CAP57 PO; -FURO20TA3 PO; -HYDR25TA88 PO; -LISI20TA56 PO; -LORA-1121 PO; -POTA-36 PO; -ROSU20TA14 PO
[2024-09-15] MEDS: ALBUTEROL SULF 2.5 MG/0.5ML(0.5%) NEB SOLN NEB ONE (21:38)
[2024-09-15] MEDS: IPRATROPIUM BROM 0.5 MG/2.5ML INH SOL NEB ONE (21:38)
[2024-09-15 21:39] VITALS: RESP 20; O2SAT 95
--- NOTE | 2024-09-15 21:39 | ED.PDOC ---
SOB-HPI HPI Comments A 73 year old female presents to the ED with a chief complaint of shortness of breath onset today. Patient states she woke up today experiencing shortness of breath and has a history of Pneumonia. Patient also states she began experiencing nasal congestion last night. Patient tried to see PCP today but has not available appointment until November 2024. No other symptoms or modifying factors present at this time. Chief Complaint: Shortness of Breath Time Seen by MD: 21:32 Primary Care Provider: unknown Reviewed notes: Medications, Allergies Information Source: Patient Mode of Arrival: Ambulatory Severity: Moderate Timing: Hours Duration: Since onset PE Risk Factors: None History of: None Prehospital treatment: None Modifying Factors: Nothing Associated Signs and Symptoms: Nasal Congestion Past Medical History PAST MEDICAL HISTORY: Denies Surgical History: Denies all surgeries TUBE WRAPPER History: No Pertinent TUBE WRAPPER History Family History Family History: Unknown Social History Smoker: Non-Smoker Alcohol: Denies ETOH Use Drugs: Denies Drug Use Lives In: Home Constitutional: denies: chills, diaphoresis, fatigue, fever, malaise, sweats, weakness, others EENTM: denies: blurred vision, double vision, ear bleeding, ear discharge, ear drainage, ear pain, ear ringing, eye pain, eye redness, hearing loss, mouth pain, mouth swelling, nasal discharge, nose bleeding, nose congestion, nose pain, photophobia, tearing, throat pain, throat swelling, voice changes, others Respiratory: reports: shortness of breath; denies: cough, hemoptysis, orthopnea, SOB at rest, SOB with excertion, stridor, wheezing, others Cardiovascular: denies: chest pain, dizzy spells, diaphoresis, Dyspnea on exertion, edema, irregular heart beat, left arm pain, lightheadedness, palpitations, PND, syncope, others Gastrointestinal: denies: abdomen distended, abdominal pain, blood streaked bowels, constipated, diarrhea, dysphagia, difficulty swallowing, hematemesis, melena, nausea, poor appetite, poor fluid intake, rectal bleeding, rectal pain, vomiting, others Genitourinary: denies: abnormal vagina bleeding, burning, dyspareunia, dysuria, flank pain, frequency, hematuria, incontinence, pain, , vagina discharge, urgency, others Neurological: denies: dizziness, fainting, headache, left sided numbness, left sided weakness, numbness, paresthesia, pre-existing deficit, right sided numbness, right sided weakness, seizure, speech problems, tingling, tremors, weakness, others Musculoskeletal: denies: back pain, gout, joint pain, joint swelling, muscle pain, muscle stiffness, neck pain, others Integumetry: denies: bruises, change in color, change in hair/nails, dryness, laceration, lesions, lumps, rash, wounds, others Allergic/Immunocompromised: denies: Difficulty Healing, Frequent Infections, Hives, Itching, others Hematologic/Lymphatic: denies: anemia, blood clots, easy bleeding, easy bruising, swollen glands, others Endocrine: denies: excessive hunger, excessive sweating, excessive thirst, excessive urination, flushing, intolerance to cold, intolerance to heat, unexplained weight gain, unexplained weight loss, others Psychiatric: denies: anxiety, bipolar disorder, depression, hopeless, panic disorder, schizophrenia, sleepless, suicidal, others All Other Systems: Reviewed and Negative Physical Exam General Appearance: No Apparent Distress, Normal HEENT: Normal ENT Inspection, Pharynx Normal, TMs Normal Neck: Full Range of Motion, Non-Tender, Normal, Normal Inspection Respiratory: Chest Non-Tender, Lungs Clear, No Accessory Muscle Use, No Respiratory Distress, Normal Breath Sounds Cardiovascular: No Edema, No JVD, No Murmur, No Gallop, Normal Peripheral Pulses, Regular Rate/Rhythm Breast Exam: Deferred Gastrointestinal: No Organomegaly, Non Tender, No Pulsatile Mass, Normal Bowel Sounds, Soft Genitalia: Deferred Pelvic: Deferred Rectal: Deferred Extremities: No calf tenderness, Normal capillary refill, Normal inspection, Normal range of motion, Non-tender, No pedal edema Musculoskeletal : Apperance: Normal Neurologic: Alert, mill tender warm up 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 Was a procedure done?: No Differential Dx Differential Diagnosis: Asthma, Bronchitis, CHF, COPD, Myocardial infarction, Pneumonia, Pneumothorax, Pulmonary Embolism, Other X-Ray, Labs, Meds, VS Vital Signs Date Time Temp Pulse Resp B/P (MAP) Pulse Ox O2 Delivery O2 Flow Rate FiO2 09/15/24 21:39 20 95 Nasal Cannula* 3 32 12/18/24 21:03 99.7 97 20 128/71 (90) 96 Lab Test 09/15/24 22:35 09/15/24 21:50 09/15/24 21:35 Range/Units Troponin I High Sensitivity 716 *H 744 *H </=34 ng/L Blood Gas Specimen Type Venous Blood Gas Sample Site Vbg - n/a Blood Gas Patient Temperature 37.0 Arterial Blood Date Drawn [id number] Eber Test N/a Venous Blood pH 7.458 H 7.320-7.430 Venous Blood pCO2 at Patient Temp 33.8 L 38.0-54.0 mmHg Venous Blood pO2 at Patient Temp < 36.5 23.0-48.0 mmHg Venous Blood HCO3 23.4 22.0-29.0 mmol/L Venous Bld O2 Saturation (Measured) 70.5 60.0-85.0 % Venous Blood Base Excess 0.3 -2.0-3.0 mmol/L Venous Blood Total Hemoglobin 15.9 12.0-16.0 g/dL Venous Blood Oxyhemoglobin 69.7 0.0-79.0 % Venous Blood Carboxyhemoglobin 0.8 0.5-1.5 % Venous Blood Methemoglobin 0.4 0.0-1.5 % Blood Gas Liter Flow 3.00 Blood Gas Modality Nasal cannula FiO2 % 32.0 Specimen Drawn By Pita martinez White Blood Count 5.9 4.4-10.8 10^3/uL Red Blood Count 4.68 4.0-5.20 10^6/uL Hemoglobin 14.9 12.2-16.2 g/dL Hematocrit 44.2 36.0-46.0 % Mean Corpuscular Volume 94.6 80.0-100.0 fL Mean Corpuscular Hemoglobin 31.9 28.0-32.0 pg Mean Corpuscular Hemoglobin Concent 33.7 32.0-36.0 g/dL Red Cell Distribution Width 14.0 11.8-14.3 % Platelet Count 261 140-450 10^3/uL Mean Platelet Volume 7.4 6.9-10.8 fL Neutrophils (%) (Auto) 52.8 37.0-80.0 % Lymphocytes (%) (Auto) 29.2 10.0-50.0 % Monocytes (%) (Auto) 11.3 0.0-12.0 % Eosinophils (%) (Auto) 5.8 0.0-7.0 % Basophils (%) (Auto) 0.9 0.0-2.0 % Neutrophils # (Auto) 3.1 1.6-8.6 10 ^3/uL Lymphocytes # (Auto) 1.7 0.4-5.4 10 ^3/uL Monocytes # (Auto) 0.7 0-1.3 10 ^3/uL Eosinophils # (Auto) 0.3 0-0.8 10 ^3/uL Basophils # (Auto) 0.1 0-0.2 10 ^3/uL Nucleated Red Blood Cells 0.1 % Sodium Level 141 136-145 mmol/L Potassium Level 3.6 3.5-5.1 mmol/L Chloride Level 105 98-107 mmol/L Carbon Dioxide Level 25 20-31 mmol/L Anion Gap 11 5-15 Blood Urea Nitrogen 21 9-23 mg/dL Creatinine 0.83 0.550-1.02 mg/dL Glomerular Filtration Rate Calc 74 >90 mL/min BUN/Creatinine Ratio 25.3 H 10.0-20.0 Serum Glucose 115 H 74-106 mg/dL Lactic Acid Level 2.5 *H 0.4-2.0 mmol/L Calcium Level 9.9 8.7-10.4 mg/dL Total Bilirubin 0.5 0.2-1.0 mg/dL Aspartate Amino Transferase (AST) 20 13-40 U/L Alanine Aminotransferase (ALT) 14 7-40 U/L Alkaline Phosphatase 71 46-116 U/L B-Type Natriuretic Peptide 56.16 0-100 pg/mL Total Protein 7.2 5.7-8.2 g/dL Albumin 4.6 3.2-4.8 g/dL Current Medications Medications (Trade) Dose Ordered Sig/Bossman Route Start Time Stop Time Status Last Admin Albuterol (Ventolin Medneb) 5 mg ONCE ONCE NEB 09/15/24 21:30 09/15/24 21:31 DC 09/15/24 21:38 Ipratropium Wishram (Atrovent Medneb) 0.5 mg ONCE ONCE NEB 09/15/24 21:30 09/15/24 21:31 DC 09/15/24 21:38 Time of 1ST Reevaluation: 22:02 Reevaluation 1ST: Unchanged Time of 2ND Reevaluation: 23:00 Reevaluation 2ND: Improved (On reevaluation the patient is declining admission and wants to go home. I have voiced my concerns for the patient's health given that a full evaluation and treatment had not occurred. I have discussed the need for continued evaluation to determine if their symptoms are caused by a condition that present risk of or morbidity. Risks including but not limited to , permanent disability, prolonged hospitalization, prolonged illness, were discussed. I discussed the specific benefits of additional treatment, as well as tried offering alternative options in hopes that the patient might be amenable to partial evaluation and treatment which would be medically beneficial to the patient. However, the patient declined my options an d insisted on leaving. Patient has a clear sensorium and GCS 15 and expresses understanding of the risks with leaving. Because I have been unable to convince the patient to stay, I answered all of their questions about their condition and asked them to return to the ED as soon as possible to complete their evaluation, especially if their symptoms worsen or do not improve. I emphasized that leaving against medical advice does not preclude returning here for further evaluation. I asked the patient to return if they change their mind about the further evaluation and treatment. I strongly encouraged the patient to return to this Emergency Department or any Emergency Department at any time, particularly with worsening symptoms.) Patient Education/Counseling: Diagnosis, Treatment, Prognosis Family Education/Counseling: No Family Present Additional Information I reviewed the following notes from patient's past medical encounters: The following tests were ordered, and results were reviewed by me: CBC, CMP, VBG, TROP, BNP, blood culture, LA w/ reflex, TROP, EKG, chest XY Additional Information was gathered from interviewing the following independent historians: none I reviewed and agreed with the following test results read by other providers: radiologist I discussed treatment and results with medical personnel and: patient Departure 1 Departure Time of Disposition: 23:00 (against medical advice) Impression: Primary Impression: COPD exacerbation Additional Impression: Elevated troponin Disposition: LEFT AGAINST MEDICAL ADVICE Condition: Guarded e-Prescriptions Prednisone (Prednisone) 20 Mg Tab 20 MG PO BID for 5 Days, #10 TAB Prov: IMELDA TOBAR MD 09/15/24 Albuterol Sulfate (Albuterol Sulfate Hfa) 108 Mcg/Act Aer 108 MCG IN Q4HP PRN for 10 Days, #1 AER Prov: IMELDA TOBAR MD 09/15/24 Albuterol Sulfate (Albuterol Sulfate) 0.083 % Neb 1 VIAL NEB Q4HPRN, #50 VIAL Prov: IMELDA TOBAR MD 09/15/24 Discharged With: Self Critical Care Note Critical Care Time?: No Stability Stability form required: No Heart Score Heart Score: Heart Score Response (Comments) Value History Moderate Suspicious 1 EKG Repolarization Disturb 1 Age >65 2 Risk Factors 1 or 2 risk factors 1 Troponin >3 x's Normal limit 2 Total 7 I personally scribed for IMELDA TOBAR MD ([email or web address]) on 09/15/24 at 21:39. Electronically submitted by Mildred Sue ([email or web address]). I personally scribed for IMELDA TOBAR MD ([email or web address]) on 09/15/24 at 21:41. Electronically submitted by Mildred Sue ([email or web address]). I personally scribed for IMELDA TOBAR MD ([email or web address]) on 09/15/24 at 22:54. Electronically submitted by Mildred Sue ([email or web address]). IMELDA TOBAR MD Sep 15, 2024 21:39
[2024-09-15] MEDS ORDERED: predniSONE 20 MG TAB PO ONE ×2 (21:45→22:45)
[2024-09-15 22:11] LABS: Basophils # (auto) 0.1 10 ^3/uL (0-0.2); Basophils % (auto) 0.9 % (0.0-2.0); Eosinophils # (auto) 0.3 10 ^3/uL (0-0.8); Eosinophils % (auto) 5.8 % (0.0-7.0); Hematocrit 44.2 % (36.0-46.0); Hemoglobin 14.9 g/dL (12.2-16.2); Lymphocytes # (auto) 1.7 10 ^3/uL (0.4-5.4); Lymphocytes % (auto) 29.2 % (10.0-50.0); Mean Corpuscular Hemoglobin 31.9 pg (28.0-32.0); Mean Corpuscular Hgb Conc. 33.7 g/dL (32.0-36.0); Mean Corpuscular Volume 94.6 fL (80.0-100.0); Monocytes # (auto) 0.7 10 ^3/uL (0-1.3); Monocytes % (auto) 11.3 % (0.0-12.0); Neutrophils # (auto) 3.1 10 ^3/uL (1.6-8.6); Neutrophils % (auto) 52.8 % (37.0-80.0); Nucleated Red Blood Cells % 0.1 %; Platelet Count (auto) 261 10^3/uL (140-450); Red Blood Cells 4.68 10^6/uL (4.0-5.20); White Blood Cell 5.9 10^3/uL (4.4-10.8)
[2024-09-15 22:25] LABS: Alanine Aminotransferase 14 U/L (7-40); Alkaline Phosphatase 71 U/L (46-116); Anion Gap 11 (5-15); Aspartate Aminotransferase 20 U/L (13-40); BUN/Creatinine Ratio 25.3 (10.0-20.0); Blood Urea Nitrogen 21 mg/dL (9-23); Calcium 9.9 mg/dL (8.7-10.4); Carbon Dioxide 25 mmol/L (20-31); Chloride 105 mmol/L (98-107); Potassium 3.6 mmol/L (3.5-5.1); Sodium 141 mmol/L (136-145)
[2024-09-15 22:26] LABS: Albumin 4.6 g/dL (3.2-4.8); Bilirubin, Total 0.5 mg/dL (0.2-1.0); Total Protein 7.2 g/dL (5.7-8.2)
--- NOTE | 2024-09-15 22:34 | DVH ---
CHEST RADIOGRAPH Indication: SOB Technique: Single frontal view of the chest was obtained Comparison: XY CHEST PORTABLE on DOS: 05/25/24, XY CHEST PORTABLE on DOS: 04/06/24, XY CHEST PORTABLE on DOS: 03/22/24 FINDINGS: Lines and Tubes: None Lungs: Clear Pleura: No effusion. No pneumothorax. Cardiomediastinal contours: Unremarkable Bones: Unremarkable IMPRESSION: 1. Clear lungs.
[2024-09-15 22:35] LABS: Glucose 115 mg/dL (74-106)
[2024-09-15 23:06] LABS: Lactic Acid w/Reflex 2.5 mmol/L (0.4-2.0)
[2024-09-15] MEDS ORDERED: PRED20TA2 PO (23:20)
[2024-09-15] MEDS ORDERED: ALBU0.084 NEB (23:20)
[2024-09-15] MEDS ORDERED: ALBU108A5 IN (23:20)
== END 2024-09-15 23:36 | disposition left against medical advice (07) ==
LOC: ER 21:03
DX: J44.1 Chronic obstructive pulmonary disease with (acute) exacerbation (principal); R79.89 Other specified abnormal findings of blood chemistry
CPT/HCPCS: 36415; 36600; 71045; 80053; 82805; 83605; 83880; 84484; 85025; 87040; 94640

== ENCOUNTER 2024-09-24 13:28 | Inpatient (IN) | payer MEDICARE, OTHER ==
[~2024-09-24] VITALS: Ht 175.3 cm; Wt 90.1 kg
[~2024-09-24 13:28] MED LIST changes: +ALBU0.084 NEB; +ALBU108A5 IN; +PRED20TA2 PO
[2024-09-24 14:20] LABS: Basophils # (auto) 0 10 ^3/uL (0-0.2); Basophils % (auto) 0.4 % (0.0-2.0); Eosinophils # (auto) 0.5 10 ^3/uL (0-0.8); Eosinophils % (auto) 5.7 % (0.0-7.0); Hematocrit 44.9 % (36.0-46.0); Hemoglobin 15.3 g/dL (12.2-16.2); Lymphocytes # (auto) 1.3 10 ^3/uL (0.4-5.4); Lymphocytes % (auto) 16.7 % (10.0-50.0); Mean Corpuscular Volume 94.2 fL (80.0-100.0); Monocytes # (auto) 0.5 10 ^3/uL (0-1.3); Monocytes % (auto) 6.7 % (0.0-12.0); Neutrophils # (auto) 5.6 10 ^3/uL (1.6-8.6); Neutrophils % (auto) 70.5 % (37.0-80.0); Nucleated Red Blood Cells % 0.2 %; Platelet Count (auto) 252 10^3/uL (140-450); Red Blood Cells 4.77 10^6/uL (4.0-5.20); Red Cell Distribution Width 14.1 % (11.8-14.3); White Blood Cell 7.9 10^3/uL (4.4-10.8)
[2024-09-24 14:27] LABS: Chloride 106 mmol/L (98-107); Potassium 4.8 mmol/L (3.5-5.1); Sodium 143 mmol/L (136-145)
[2024-09-24 14:28] LABS: Anion Gap 10 (5-15); Carbon Dioxide 27 mmol/L (20-31)
[2024-09-24 14:29] LABS: Calcium 9.7 mg/dL (8.7-10.4)
[2024-09-24 14:34] LABS: BUN/Creatinine Ratio 20.9 (10.0-20.0); Blood Urea Nitrogen 18 mg/dL (9-23)
[2024-09-24 14:46] LABS: Glucose 111 mg/dL (74-106)
--- NOTE | 2024-09-24 14:55 | ED.PDOC ---
SOB-HPI HPI Comments 73y F who presents to the ED for chief compliant of shortness of breath. Pt states she has been having shortness of breath with associated cough for the past 2 weeks. Pt states she was given steroid treatment with no relief and came back to the ED. Pt in the ED, has temp of 97.6 F and 02 sat of 93% on room air and able to speak in full sentences without getting short of breath. Pt denies any other symptoms at this time. Chief Complaint: Shortness of Breath Time Seen by MD: 14:51 Primary Care Provider: unknown Reviewed notes: Nurses Notes Mode of Arrival: Ambulatory Past Medical History PAST MEDICAL HISTORY: Denies Surgical History: Denies all surgeries TEACHER'S AIDE History: No Pertinent TEACHER'S AIDE History Family History Family History: Unknown Social History Smoker: Non-Smoker Alcohol: Denies ETOH Use Drugs: Denies Drug Use Lives In: Home Constitutional: denies: chills, diaphoresis, fatigue, fever, malaise, sweats, weakness, others EENTM: denies: blurred vision, double vision, ear bleeding, ear discharge, ear drainage, ear pain, ear ringing, eye pain, eye redness, hearing loss, mouth pain, mouth swelling, nasal discharge, nose bleeding, nose congestion, nose pain, photophobia, tearing, throat pain, throat swelling, voice changes, others Respiratory: reports: cough, shortness of breath; denies: hemoptysis, orthopnea, SOB at rest, SOB with excertion, stridor, wheezing, others Cardiovascular: denies: chest pain, dizzy spells, diaphoresis, Dyspnea on exertion, edema, irregular heart beat, left arm pain, lightheadedness, palpitations, PND, syncope, others Gastrointestinal: denies: abdomen distended, abdominal pain, blood streaked bowels, constipated, diarrhea, dysphagia, difficulty swallowing, hematemesis, melena, nausea, poor appetite, poor fluid intake, rectal bleeding, rectal pain, vomiting, others Genitourinary: denies: abnormal vagina bleeding, burning, dyspareunia, dysuria, flank pain, frequency, hematuria, incontinence, pain, , vagina discharge, urgency, others Neurological: denies: dizziness, fainting, headache, left sided numbness, left sided weakness, numbness, paresthesia, pre-existing deficit, right sided numbness, right sided weakness, seizure, speech problems, tingling, tremors, weakness, others Musculoskeletal: denies: back pain, gout, joint pain, joint swelling, muscle pain, muscle stiffness, neck pain, others Integumetry: denies: bruises, change in color, change in hair/nails, dryness, laceration, lesions, lumps, rash, wounds, others Allergic/Immunocompromised: denies: Difficulty Healing, Frequent Infections, Hives, Itching, others Hematologic/Lymphatic: denies: anemia, blood clots, easy bleeding, easy bruising, swollen glands, others Endocrine: denies: excessive hunger, excessive sweating, excessive thirst, excessive urination, flushing, intolerance to cold, intolerance to heat, unexplained weight gain, unexplained weight loss, others Psychiatric: denies: anxiety, bipolar disorder, depression, hopeless, panic disorder, schizophrenia, sleepless, suicidal, others All Other Systems: Reviewed and Negative Physical Exam General Appearance: Other (pt able to speak in full sentences ) HEENT: Normal ENT Inspection, Pharynx Normal, TMs Normal Neck: Full Range of Motion, Non-Tender, Normal, Normal Inspection Respiratory: Wheezing, Other (bilateral coarse breath sounds) Cardiovascular: No Edema, No JVD, No Murmur, No Gallop, Normal Peripheral Pulses, Regular Rate/Rhythm Breast Exam: Deferred Gastrointestinal: No Organomegaly, Non Tender, No Pulsatile Mass, Normal Bowel Sounds, Soft Genitalia: Deferred Pelvic: Deferred Rectal: Deferred Extremities: No calf tenderness, Normal capillary refill, Normal inspection, Normal range of motion, Non-tender, No pedal edema Musculoskeletal : Apperance: Normal Neurologic: 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 Was a procedure done?: No Differential Dx Differential Diagnosis: Asthma, Bronchitis, CHF, COPD, Pneumonia, Pulmonary Embolism, Respiratory Distress, URI X-Ray, Labs, Meds, VS Vital Signs Date Time Temp Pulse Resp B/P (MAP) Pulse Ox O2 Delivery O2 Flow Rate FiO2 09/24/24 13:54 20 93 Room Air* 0 21 09/24/24 13:50 97.6 71 20 127/73 (91) 93 09/24/24 13:47 70 Lab Test 09/24/24 14:47 09/24/24 13:50 Range/Units Troponin I High Sensitivity 138 *H 136 *H </=34 ng/L White Blood Count 7.9 4.4-10.8 10^3/uL Red Blood Count 4.77 4.0-5.20 10^6/uL Hemoglobin 15.3 12.2-16.2 g/dL Hematocrit 44.9 36.0-46.0 % Mean Corpuscular Volume 94.2 80.0-100.0 fL Mean Corpuscular Hemoglobin 32.0 28.0-32.0 pg Mean Corpuscular Hemoglobin Concent 34.0 32.0-36.0 g/dL Red Cell Distribution Width 14.1 11.8-14.3 % Platelet Count 252 140-450 10^3/uL Mean Platelet Volume 7.1 6.9-10.8 fL Neutrophils (%) (Auto) 70.5 37.0-80.0 % Lymphocytes (%) (Auto) 16.7 10.0-50.0 % Monocytes (%) (Auto) 6.7 0.0-12.0 % Eosinophils (%) (Auto) 5.7 0.0-7.0 % Basophils (%) (Auto) 0.4 0.0-2.0 % Neutrophils # (Auto) 5.6 1.6-8.6 10 ^3/uL Lymphocytes # (Auto) 1.3 0.4-5.4 10 ^3/uL Monocytes # (Auto) 0.5 0-1.3 10 ^3/uL Eosinophils # (Auto) 0.5 0-0.8 10 ^3/uL Basophils # (Auto) 0 0-0.2 10 ^3/uL Nucleated Red Blood Cells 0.2 % Sodium Level 143 136-145 mmol/L Potassium Level 4.8 3.5-5.1 mmol/L Chloride Level 106 98-107 mmol/L Carbon Dioxide Level 27 20-31 mmol/L Anion Gap 10 5-15 Blood Urea Nitrogen 18 9-23 mg/dL Creatinine 0.86 0.550-1.02 mg/dL Glomerular Filtration Rate Calc 71 >90 mL/min BUN/Creatinine Ratio 20.9 H 10.0-20.0 Serum Glucose 111 H 74-106 mg/dL Calcium Level 9.7 8.7-10.4 mg/dL Time of 1ST Reevaluation: 15:20 Reevaluation 1ST: Unchanged Patient Education/Counseling: Diagnosis, Treatment Family Education/Counseling: No Family Present Additional Information - I reviewed the following notes from patient's past medical encounters: - The following tests were ordered, and results were reviewed by me: (Labs, X- Ray, EKG): chest x-ray, EKG x 3, troponin x 3, BMP, OCC - Additional information was gathered from interviewing the following independent Historian: (Family, Other Providers, EMT): none - I reviewed and agreed with the following test results read by other provider: (X-ray, CT, US): radiologist - I discussed treatments and results with medical personnel and: (consultants, maxime farser): none) pt appeared improved, but worsened with increased wheezes again. she will get another treatment and be admitted Departure 1 Departure Time of Disposition: 15:38 Impression: Primary Impression: Asthma exacerbation Qualified Codes: J45.41 - Moderate persistent asthma with (acute) exacerbation Additional Impressions: Elevated troponin Acute respiratory distress Disposition: ADMITTED INPATIENT Admit to: Tele Condition: Serious Critical Care Note Critical Care Time?: Yes (55 min-critical care time only) Critical care comment: due to concerns for patient's condition deterioration, the care required my highest attention and readiness to intervene. i spoke to the family, patient, reviewed any records, ordered the appropriate tests and treatments, reviewed the results, response and communicated with medical personnel, formulated a plan of care. critical care time does not include any procedures Stability Stability form required: No Heart Score Heart Score: Heart Score Response (Comments) Value History Slightly Suspicious 0 EKG Repolarization Disturb 1 Age >65 2 Risk Factors 1 or 2 risk factors 1 Troponin >3 x's Normal limit 2 Total 6 I personally scribed for RUKHSANA GEORGE MD ([email or web address]) on 09/24/24 at 14:55. Electronically submitted by Jose G Alfaor ([email or web address]). RUKHSANA GEORGE MD Sep 24, 2024 14:55
--- NOTE | 2024-09-24 15:10 | DVH ---
CHEST RADIOGRAPH Indication: COUGH Technique: Single frontal view of the chest was obtained Comparison: XY CHEST PORTABLE on DOS: 09/15/24, XY CHEST PORTABLE on DOS: 05/25/24 FINDINGS: Lines and Tubes: None Lungs: No focal consolidation. Pleura: No effusion.No pneumothorax. Cardiomediastinal contours: Unremarkable Pulmonary vasculature: Within normal limits. Bones: No acute osseous abnormality. IMPRESSION: 1. No acute cardiopulmonary disease. HS:Y
[2024-09-24] MEDS: ALBUTEROL SULF 2.5 MG/0.5ML(0.5%) NEB SOLN NEB ONE (15:45)
[2024-09-24] MEDS: IPRATROPIUM BROM 0.5 MG/2.5ML INH SOL NEB ONE (15:45)
[2024-09-24] MEDS: ASPirin 325 MG TAB PO ONE (16:01)
[2024-09-24] MEDS: methylPREDNISolone SOD SUCC 125 MG/2 ML VL IV ONE (16:02)
[2024-09-24 16:46] VITALS: PULSE 87; RESP 32; O2SAT 93
[2024-09-24] MEDS ORDERED: IPRATROPIUM BROM 0.5 MG/2.5ML INH SOL NEB PRN (17:45)
[2024-09-24] MEDS ORDERED: MORPHINE SULFATE 4 MG/ML SYR/VIAL IV PRN (17:45)
[2024-09-24] MEDS ORDERED: NITROGLYCERIN 0.4 MG SL TAB SL PRN ×2 (17:45)
[2024-09-24] MEDS ORDERED: ALBUTEROL SULF 2.5 MG/0.5ML(0.5%) NEB SOLN NEB PRN (17:45)
[2024-09-24] MEDS ORDERED: MORPHINE SULFATE INJ 2 MG/ml SYRG IV PRN (17:45)
[2024-09-24] MEDS ORDERED: ESCI1TAB36 PO (17:55)
--- NOTE | 2024-09-24 18:02 | DVHHP2 ---
History of Present Illness Reason for Visit: Shortness of breaths and cough x2 weeks History of Present Illness Chandrika Noel is a 73-year-old female with past medical history of asthma, COPD, hyperlipidemia, hypertension, aortic heart valve narrowing, aortic root dilation, and anxiety who presents to the ED today for cough and shortness of breath x2 weeks. Patient states that she was here 2 weeks ago and her cardiac enzymes were up but she did want want to stay so she left home. Patient is back because of progressive worsening dyspnea for the past couple of weeks. She reports that she took steroids but with no relief. She states that she does not use any home oxygen. Patient denies any fevers, chills, chest pain, nausea, vomiting, diarrhea, headache, lightheadedness, and dizziness. Patient reports that she is compliant with all her medications Pulmonary: Asthma Past Surgical History Aortic root dilation Right shoulder surgery Smoke: Quit ALCOHOL: occassional Drugs: None Lives: with Family Domestic Violence: Neg Review of Systems Constitutional: No: Fever, Chills, Sweats, Weakness, Malaise, Other Eyes: No: Pain, Vision change, Conjunctivae inflammation, Eyelid inflammation, Other, Redness ENT: No: Ear pain, Ear discharge, Nose pain, Nose discharge, Nose congestion, Mouth pain, Mouth swelling, Throat pain, Throat swelling, Other Respiratory: Cough, Shortness of breath; No: Dry, SOB with excertion, Wheezing, Hemoptysis, Pleuritic Pain, Sputum, Wheezing, Other Cardiovascular: No: Chest Pain, Palpitations, Orthopnea, Paroxysmal Noc. Dyspnea, Edema, Lt Headedness, Other Gastrointestinal: No: Nausea, Vomiting, Abdominal Pain, Diarrhea, Constipation, Melena, Hematochezia, Other Genitourinary: No Dysuria, No Frequency, No Incontinence, No Hematuria, No Retention, No Other Musculoskeletal: No: other, neck pain, shoulder pain, arm pain, back pain, hand pain, leg pain, foot pain Skin: No: Rash, Lesions, Jaundice, Bruising, Other Neurological: No: Weakness, Numbness, Incoordination, Change in speech, Confusion, Seizures, Other Allergies: Coded Allergies: Iodine (Verified Allergy, Mild, 03/22/24) itching 20 years ago Exam Vital Signs Vital Signs Date Time Temp Pulse Resp B/P (MAP) Pulse Ox O2 Delivery O2 Flow Rate FiO2 09/24/24 16:46 87 32 93 Nasal Cannula* 3 32 09/24/24 16:25 163/81 (108) 09/24/24 13:50 97.6 General Appearance: Alert, Oriented X3, Cooperative, mild distress HEENT: Atraumatic, PERRLA, EOMI, Mucous membr. moist/pink Respiratory: Normal air movement Cardiovascular: Regular rate, Normal S1, Normal S2, No murmurs Abdominal: Normal bowel sounds, Soft, No tenderness, No hepatospenomegaly, No masses Extremities: No clubbing, No cyanosis, No edema, Normal pulses, No tenderness/swelling Skin: No rashes, No breakdown, No significant lesion Neuro: Normal gait, Normal speech, Strength at 5/5 X4 ext, Normal tone, Sensation intact, Cranial nerves 3-12 NL Psych/Mental Status: Mental status NL, Mood NL Labs/Xrays Labs Test 09/24/24 16:53 09/24/24 13:50 Range/Units White Blood Count 7.9 4.4-10.8 10^3/uL Red Blood Count 4.77 4.0-5.20 10^6/uL Hemoglobin 15.3 12.2-16.2 g/dL Hematocrit 44.9 36.0-46.0 % Mean Corpuscular Volume 94.2 80.0-100.0 fL Mean Corpuscular Hemoglobin 32.0 28.0-32.0 pg Mean Corpuscular Hemoglobin Concent 34.0 32.0-36.0 g/dL Red Cell Distribution Width 14.1 11.8-14.3 % Platelet Count 252 140-450 10^3/uL Mean Platelet Volume 7.1 6.9-10.8 fL Neutrophils (%) (Auto) 70.5 37.0-80.0 % Lymphocytes (%) (Auto) 16.7 10.0-50.0 % Monocytes (%) (Auto) 6.7 0.0-12.0 % Eosinophils (%) (Auto) 5.7 0.0-7.0 % Basophils (%) (Auto) 0.4 0.0-2.0 % Neutrophils # (Auto) 5.6 1.6-8.6 10 ^3/uL Lymphocytes # (Auto) 1.3 0.4-5.4 10 ^3/uL Monocytes # (Auto) 0.5 0-1.3 10 ^3/uL Eosinophils # (Auto) 0.5 0-0.8 10 ^3/uL Basophils # (Auto) 0 0-0.2 10 ^3/uL Nucleated Red Blood Cells 0.2 % Sodium Level 143 136-145 mmol/L Potassium Level 4.8 3.5-5.1 mmol/L Chloride Level 106 98-107 mmol/L Carbon Dioxide Level 27 20-31 mmol/L Anion Gap 10 5-15 Blood Urea Nitrogen 18 9-23 mg/dL Creatinine 0.86 0.550-1.02 mg/dL Glomerular Filtration Rate Calc 71 >90 mL/min BUN/Creatinine Ratio 20.9 H 10.0-20.0 Serum Glucose 111 H 74-106 mg/dL Calcium Level 9.7 8.7-10.4 mg/dL CHEST RADIOGRAPH Indication: COUGH Technique: Single frontal view of the chest was obtained Comparison: XY CHEST PORTABLE on DOS: 09/15/24, XY CHEST PORTABLE on DOS: 05/25/24 FINDINGS: Lines and Tubes: None Lungs: No focal consolidation. Pleura: No effusion.No pneumothorax. Cardiomediastinal contours: Unremarkable Pulmonary vasculature: Within normal limits. Bones: No acute osseous abnormality. IMPRESSION: 1. No acute cardiopulmonary disease. Assessment/Plan Assessment/Plan Assessment/Plan: Acute on chronic asthma exacerbation COPD Troponins Cardiology consult IV steroids PPIs Respiratory treatments Chest x-ray EKG Supportive Oxygen Labs A.m. labs Hypertension continue home meds Hyperlipidemia Continue home medications FEN/PPX diet npo DVT ppx not indicated patient ambulating PUD ppx Protonix Discussed plan of care with patient and nurse Home medications reconciled Admit to tele Plan discussed with: Patient My Orders Orders - HUE POOLE Procedure Category Date Status Time Admit ADMIT 09/24/24 Verified 17:43 Code Status CODE 09/24/24 Verified 17:43 Vital Signs DAMIAN 09/24/24 Verified 17:43 Fitness Consultant DAMIAN 09/24/24 Verified 17:43 Cardiac DIET 09/24/24 Verified Diet-2gna,Lofat,Lochol Dinner Morphine Sulfate PHA 09/24/24 Verified Injection 17:45 Acetaminophen Tablet PHA 09/24/24 Verified (Tylenol Tablet) 17:45 Docusate Sodium PHA 09/25/24 Verified Capsule (Colace 10:00 Complete Blood Count LAB 09/25/24 Verified 04:00 Comprehensive LAB 09/25/24 Verified Metabolic Panel 04:00 Echo 2d Mode Cardiac US 09/24/24 Verified DOP 17:43 Nitroglycerin PHA 09/24/24 Verified Sublingual (Ntrostat 17:45 Electrocardigram EKG 09/25/24 Verified 04:00 Alum & Mag PHA 09/24/24 Verified Hydrox-Simethicone 17:45 Troponin-I Hs LAB 09/25/24 Verified 04:00 Cardiac DAMIAN 09/24/24 Verified Rehabilitation - Outpa Nitroglycerin PHA 09/24/24 Verified Sublingual (Ntrostat 17:45 Morphine Sulfate PHA 09/24/24 Verified Injection 17:45 Stat Ekg For Chest DAMIAN 09/24/24 Verified Pain 17:43 Notify Md Of Changes [facility] 09/24/24 Verified From Base 17:43 Insurance Follow Up Rep For [facility] 09/24/24 Verified 24 Hours 17:43 Emergency Dysrhythmia [facility] 09/24/24 Verified Protocol 17:43 Rhythm Strips Once [facility] 09/24/24 Verified Every Shift 17:43 Oxygen By Nasal RT 09/24/24 Verified Cannula 17:43 Methylprednisolone PHA 09/24/24 Verified Sod Succ (Solu Medrol 22:00 Famotidine Injection PHA 09/25/24 Verified (Pepcid Injection) 10:00 Albuterol Medneb PHA 09/24/24 Verified (Ventolin Medneb) 18:00 Albuterol Medneb PHA 09/24/24 Verified (Ventolin Medneb) 17:45 Ipratropium Medneb PHA 09/24/24 Verified (Atrovent Medneb) 18:00 Ipratropium Medneb PHA 09/24/24 Verified (Atrovent Medneb) 17:45 * Cardiology Consult CONS 09/24/24 Verified 17:43 Nifedipine Er PHA 09/25/24 Verified (Procardia Xl 10:00 Pantoprazole Tablet PHA 09/25/24 Verified (Protonix Tablet) 10:00 (Nf) Atorvastatin PHA 09/25/24 Verified Calcium 10:00 (Nf) Buspirone Hcl PHA 09/24/24 Verified 22:00 (Nf) Potassium PHA 09/25/24 Verified Chloride (K-Tab) 10:00 Date of Service: Sep 24, 2024 Billing Provider: THON,SALINA K MASTER BARBER Common Visit Codes: [id number] INP/OBS CARE (MOD) HUE POOLE MASTER BARBER Sep 24, 2024 18:02
[2024-09-24 19:16] VITALS: PULSE 90; RESP 16; O2SAT 94
[2024-09-24] MEDS: IPRATROPIUM BROM 0.5 MG/2.5ML INH SOL NEB SCH (19:16)
[2024-09-24] MEDS: ALBUTEROL SULF 2.5 MG/0.5ML(0.5%) NEB SOLN NEB SCH (19:16)
[2024-09-24 19:22] VITALS: PULSE 93; RESP 18; O2SAT 98
[2024-09-24 19:27] VITALS: PULSE 90; RESP 19; O2SAT 92
[2024-09-24] MEDS: MAALOX PLUS or MAALOX 30 ML PO ONE (19:47)
--- NOTE | 2024-09-24 20:34 | DVHINCON2 ---
Date of service: Sep 24, 2024 Referring Physician ATUL Parham Reason for Consultation Acute exacerbation of COPD History of Present Illness 73-year-old woman history of COPD/asthma, obesity who presented with a chief complaint of shortness of breath. She was having a productive cough for the last two weeks. She was feeling more shortness of breath that has not relieved with her home inhalers. She recently completed a steroid antibiotic course that was given from my office with mild improvement in her symptoms. She feels like the symptoms have returned. Pulmonary consultation is called due to acute on chronic hypoxic respiratory failure and acute exacerbation of COPD/asthma. Patient is known to me from my private office. Referred to hospital. She requested for me to be consulted and to be on board since I am her private pulmonary physician. Review of systems: 14 point review of systems is negative unless otherwise no amanda above. Past medical history: Obesity, BMI 32.5, COPD/asthma Past surgical history: No mentioned in prior surgeries. Medications: Reviewed Allergies: Iodine Family history: No family history of premature CAD. No family history of lung disease Social history: Nonsmoker. No alcohol or illicit drug use. Lives at home. Family History: Alzheimer's disease FH: dementia G8 MOTHER Prostate carcinoma G8 FATHER Allergies: Coded Allergies: Iodine (Verified Allergy, Mild, 03/22/24) itching 20 years ago Home Meds Active Scripts Prednisone (Prednisone) 20 Mg Tab, 20 MG PO BID for 5 Days, #10 TAB Prov:IMELDA TOBAR MD 09/15/24 Albuterol Sulfate (Albuterol Sulfate Hfa) 108 Mcg/Act Aer, 108 MCG IN Q4HP PRN for 10 Days, #1 AER Prov:IMELDA TOBAR MD 09/15/24 Albuterol Sulfate (Albuterol Sulfate) 0.083 % Neb, 1 VIAL NEB Q4HPRN, #50 VIAL Prov:IMELDA TOBAR MD 09/15/24 Apixaban Base (ELIQUIS) 5 Mg Tab, 5 MG PO BID, #90 TAB Prov:SRINIVAS BLANCHARD MD 04/01/24 Reported Medications Escitalopram Oxalate (ESCITALOPRAM OXALATE) 10 Mg Tab, 1 TAB PO DAILY 09/24/24 Guaifenesin (Mucus Relief) 600 Mg Tab, 1 TAB PO BID PRN for CHEST CONGESTION for 45 Days, #90 05/26/24 Pantoprazole Sodium Sesquihydr (Protonix) 40 Mg Tab, 1 TAB PO DAILY for 30 Days, #30 05/26/24 Buspirone Hcl (Buspirone Hcl) 15 Mg Tab, 1 TAB PO BID for 33 Days, #60 05/26/24 Potassium Chloride (K-Tab) 20 Meq Tab, 1 TAB PO DAILY for 90 Days, #90 05/26/24 Benzonatate (Benzonatate) 100 Mg Cap, 1 CAP PO TID 05/26/24 Atorvastatin Calcium (ATORVASTATIN CALCIUM) 40 Mg Tab, 1 TAB PO DAILY 05/26/24 Nifedipine (Nifedipine Er) 30 Mg Tab, 30 MG PO DAILY, TAB 03/20/24 Current Medications Current Medications Medications (Trade) Dose Ordered Sig/Bossman Route PRN Reason Start Time Stop Time Status Last Admin Morphine Sulfate 2 mg Q30MP PRN IV FOR CHEST PAIN 09/24/24 17:45 09/24/24 18:03 DC Acetaminophen (Tylenol Tablet) 650 mg Q6HP PRN PO MILD PAIN (1-3 PAIN SCALE) 09/24/24 17:45 Docusate Sodium (Colace Capsule) 100 mg DAILY PO 09/25/24 10:00 Nitroglycerin (Ntrostat Sublingual) 0.4 mg Q5MINP PRN SL FOR CHEST PAIN 09/24/24 17:45 Nitroglycerin (Ntrostat Sublingual) 0.4 mg Q5MINP PRN SL FOR CHEST PAIN 09/24/24 17:45 09/24/24 18:03 DC Morphine Sulfate 2 mg Q30M PRN IV FOR CHEST PAIN 09/24/24 17:45 Methylprednisolone Sodium Succinate (Solu Medrol) 40 mg BID IV 09/24/24 22:00 Famotidine (Pepcid Injection) 10 mg DAILY IV 09/25/24 10:00 Albuterol (Ventolin Medneb) 2.5 mg Q6HWA NEB 09/24/24 18:00 09/24/24 19:16 Albuterol (Ventolin Medneb) 2.5 mg Q4HPRN PRN NEB SHORTNESS OF BREATH 09/24/24 17:45 Ipratropium [place] (Atrovent Medneb) 0.5 mg Q6HWA NEB 09/24/24 18:00 09/24/24 19:16 Ipratropium [place] (Atrovent Medneb) 0.5 mg Q4HPRN PRN NEB SHORTNESS OF BREATH 09/24/24 17:45 Nifedipine (Procardia Xl (Time-Release)) 30 mg DAILY PO 09/25/24 10:00 Pantoprazole Sodium (Protonix Tablet) 40 mg DAILY PO 09/25/24 10:00 09/24/24 18:04 DC Atorvastatin Calcium (Lipitor) 40 mg HS PO 09/24/24 22:00 Buspirone HCl (Buspar Tablet) 15 mg BID PO 09/24/24 22:00 Potassium Chloride (Klor-Con Tablet) 20 meq DAILY PO 09/25/24 10:00 Vital Signs Vital Signs Date Time Temp Pulse Resp B/P (MAP) Pulse Ox O2 Delivery O2 Flow Rate FiO2 09/24/24 19:22 93 18 98 09/24/24 19:16 Nasal Cannula* 3 32 09/24/24 18:05 128/61 (83) 09/24/24 13:50 97.6 Physical Exam Gen.: Patient lying in bed in no apparent distress. On supplemental oxygen. Head: Normocephalic, atraumatic Eyes: EOMI/PERRLA. Ears: Normal hearing. Normal anatomy. Neck/trachea: Trachea midline, supple. Nose: Normal external anatomy. Mouth: Moist mucous membranes. Chest: Decrease air entry bilaterally. Bilateral wheezing bibasilar crackles. No rhonchi. Cardio vascular: Positive S1, positive S2. Regular rate and rhythm. Abdomen: Positive bowel sounds in all 4 quadrants. Soft, non-tender, non- distended. : Deferred. Rectal: Deferred Skin: Warm, dry. Extremities: 2+ radial pulses bilaterally. No lower extremity edema. Neuro: Awake, alert, oriented x3. No gross motor or sensory deficits. Cranial nerves II through XII intact. Gait not assessed. Labs/Diagnostic Data Labs Test 09/24/24 16:53 09/24/24 13:50 Range/Units Troponin I High Sensitivity 134 *H </=34 ng/L White Blood Count 7.9 4.4-10.8 10^3/uL Red Blood Count 4.77 4.0-5.20 10^6/uL Hemoglobin 15.3 12.2-16.2 g/dL Hematocrit 44.9 36.0-46.0 % Mean Corpuscular Volume 94.2 80.0-100.0 fL Mean Corpuscular Hemoglobin 32.0 28.0-32.0 pg Mean Corpuscular Hemoglobin Concent 34.0 32.0-36.0 g/dL Red Cell Distribution Width 14.1 11.8-14.3 % Platelet Count 252 140-450 10^3/uL Mean Platelet Volume 7.1 6.9-10.8 fL Neutrophils (%) (Auto) 70.5 37.0-80.0 % Lymphocytes (%) (Auto) 16.7 10.0-50.0 % Monocytes (%) (Auto) 6.7 0.0-12.0 % Eosinophils (%) (Auto) 5.7 0.0-7.0 % Basophils (%) (Auto) 0.4 0.0-2.0 % Neutrophils # (Auto) 5.6 1.6-8.6 10 ^3/uL Lymphocytes # (Auto) 1.3 0.4-5.4 10 ^3/uL Monocytes # (Auto) 0.5 0-1.3 10 ^3/uL Eosinophils # (Auto) 0.5 0-0.8 10 ^3/uL Basophils # (Auto) 0 0-0.2 10 ^3/uL Nucleated Red Blood Cells 0.2 % Sodium Level 143 136-145 mmol/L Potassium Level 4.8 3.5-5.1 mmol/L Chloride Level 106 98-107 mmol/L Carbon Dioxide Level 27 20-31 mmol/L Anion Gap 10 5-15 Blood Urea Nitrogen 18 9-23 mg/dL Creatinine 0.86 0.550-1.02 mg/dL Glomerular Filtration Rate Calc 71 >90 mL/min BUN/Creatinine Ratio 20.9 H 10.0-20.0 Serum Glucose 111 H 74-106 mg/dL Calcium Level 9.7 8.7-10.4 mg/dL Assessment Impression: Acute hypoxic respiratory failure secondary to acute exacerbation of COPD Acute exacerbation of COPD Acute respiratory distress Obesity with a BMI of 32.5 Elevated troponin Plan: Chest x-ray imaging report reviewed. No acute opacities. No pleural effusion or pneumothorax. Obtain CT chest without contrast for further evaluation. Supplemental oxygen 2 liters/minute via nasal cannula Keep O2 saturation above 92%. Elevated troponin Follow up Cardiology recommendations. Follow up echocardiogram results. Bronchodilators IV steroids GI prophylaxis - Pepcid Prognosis: Poor given multiple comorbidities. Rest of plan per hospitalist and other consultants. Thank you ATUL Parham for allowing me to participate in this patient's care. Further recommendations will depend on patient's clinical course. Please do not hesitate to contact me if you have any questions or concerns. This medical document was created using an electronic medical record system with [employer] dictation system. Although this document has been carefully reviewed, there may still be some phonetic and typographical errors. These areas are purely typographical due to imperfections of the software programs, and do not reflect any compromise in the patient's medical care. Plan discussed with: Patient, Other (MANPREET Baldwin, ATUL) EVELINE ARNETT MD Sep 24, 2024 20:34
--- NOTE | 2024-09-24 21:19 | DVH ---
Procedure: CT CHEST WITHOUT CONTRAST Reason for study/Clinical History: Bibasilar crackles/scattered rhonchi r/o fibrosis vs edema Comparison Study: None available at time of dictation. Exam Date: 09/24/2024 08:54 PM TECHNIQUE: Multidetector CT of the chest was performed from the lung apices to the upper abdomen with out the use of intravenous contract. Axial, coronal and sagittal multiplanar reformats were performed . Radiation Dose Information: CT Dose: CTDI volume is 11.44 mGy. Dose-length product is 410.44 mGy*cm The dose indicators for CT are the volume Computed Tomography (CT) Dose Index (CTDIvol) and the Dose Length Product (DLP), and are measured in units of mGy and mGy-cm, respectively. These indicators are not patient dose, but values generated from the CT scanner acquisition factors. The report includes radiation exposure data for exposures received during this examination. FINDINGS: Lower neck: Normal thyroid. Lungs: No focal consolidation, pleural effusion or pneumothorax. Heart/Vascular Structures: Normal heart size. No pericardial effusion. Lymph Nodes: No adenopathy Pleura: No pleural effusion or significant pneumothorax. Musculoskeletal: No acute osseous abnormality. Soft tissues: Normal. Upper abdomen: Limited portions of the upper abdomen are unremarkable. IMPRESSION: 1. No acute intrathoracic abnormality. Radiation optimization: All CT scans at this facility use at least one of these dose optimization bernadette hniques: automated exposure control mA and/or kV adjustment per patient size (includes targeted exam s where dose is matched to clinical indication) or iterative reconstruction.
[2024-09-24] MEDS: ATORVASTATIN 20 MG TAB PO SCH (22:08)
[2024-09-24] MEDS: methylPREDNISolone SOD SUCC 40 MG/ML VL IV SCH (22:08)
[2024-09-24] MEDS: busPIRone HCL 10 MG TAB PO SCH (22:12)
[2024-09-24 22:58] VITALS: BP_SYST 137; BP_SYST 141; BP_DIAS 63; BP_DIAS 69; PULSE 75; PULSE 79; RESP 17; TEMP 98.1; O2SAT 93
[2024-09-24 23:25] VITALS: BP 134/71; PULSE 81; RESP 20; TEMP 98.2; O2SAT 94
[2024-09-25] VITALS (14 sets, daily range): BP systolic 103–137; BP diastolic 46–88; PULSE 62–87; RESP 14–18; TEMP 97.4–98.3; O2SAT 92–100
[2024-09-25] MEDS: ACETAMINOPHEN 325 MG TAB PO PRN (04:34)
[2024-09-25 05:22] LABS: Basophils # (auto) 0 10 ^3/uL (0-0.2); Basophils % (auto) 0.2 % (0.0-2.0); Eosinophils # (auto) 0 10 ^3/uL (0-0.8); Eosinophils % (auto) 0.1 % (0.0-7.0); Hematocrit 42.7 % (36.0-46.0); Hemoglobin 14.8 g/dL (12.2-16.2); Lymphocytes # (auto) 0.6 10 ^3/uL (0.4-5.4); Lymphocytes % (auto) 7.6 % (10.0-50.0); Mean Corpuscular Hemoglobin 32.3 pg (28.0-32.0); Mean Corpuscular Hgb Conc. 34.6 g/dL (32.0-36.0); Mean Corpuscular Volume 93.5 fL (80.0-100.0); Monocytes # (auto) 0.1 10 ^3/uL (0-1.3); Monocytes % (auto) 1.2 % (0.0-12.0); Neutrophils # (auto) 6.7 10 ^3/uL (1.6-8.6); Neutrophils % (auto) 90.9 % (37.0-80.0); Platelet Count (auto) 225 10^3/uL (140-450); Red Blood Cells 4.57 10^6/uL (4.0-5.20); Red Cell Distribution Width 13.9 % (11.8-14.3); White Blood Cell 7.4 10^3/uL (4.4-10.8)
[2024-09-25 05:39] LABS: Alanine Aminotransferase 20 U/L (7-40); Albumin 4.5 g/dL (3.2-4.8); Alkaline Phosphatase 71 U/L (46-116); Anion Gap 10 (5-15); BUN/Creatinine Ratio 19.7 (10.0-20.0); Bilirubin, Total 0.8 mg/dL (0.2-1.0); Blood Urea Nitrogen 15 mg/dL (9-23); Calcium 9.9 mg/dL (8.7-10.4); Carbon Dioxide 24 mmol/L (20-31); Chloride 103 mmol/L (98-107); Potassium 4.3 mmol/L (3.5-5.1); Sodium 137 mmol/L (136-145)
[2024-09-25 05:40] LABS: Total Protein 6.9 g/dL (5.7-8.2)
[2024-09-25 06:01] LABS: Glucose 178 mg/dL (74-106)
[2024-09-25 06:22] LABS: Aspartate Aminotransferase 12 U/L (13-40)
[2024-09-25] MEDS: NIFEdipine ER 30 MG TAB PO SCH (09:56)
[2024-09-25] MEDS: DOCUSATE SOD 100 MG CAP PO SCH (09:56)
[2024-09-25] MEDS: POTASSIUM CHL 20 Meq TABLET PO SCH (10:00)
[2024-09-25] MEDS ORDERED: PANTOPRAZOLE 40 MG TAB PO SCH (10:00)
[2024-09-25] MEDS: FAMOTIDINE (10MG/ML) 2ML VL IV SCH (10:01)
--- NOTE | 2024-09-25 11:14 | DVHPN2 ---
Reviewed: Care Plan, H&P, Labs, Medications, Previous Orders, Radiology Changes from previous H/P or p: No Changes Eyes: No Pain, No Vision change, No Conjunctivae inflammation, No Eyelid inflammation, No Other, No Redness ENT: No Ear pain, No Ear discharge, No Nose pain, No Nose discharge, No Nose congestion, No Mouth pain, No Mouth swelling, No Throat pain, No Throat swelling, No Other Cardiovascular: No Chest Pain, No Palpitations, No Orthopnea, No Paroxysmal Noc. Dyspnea, No Edema, No Lt Headedness, No Other Respiratory: Cough; No Dry; Shortness of breath; No SOB with excertion, No Wheezing, No Hemoptysis, No Pleuritic Pain, No Sputum, No Other Gastrointestinal: No Nausea, No Vomiting, No Abdominal Pain, No Diarrhea, No Constipation, No Melena, No Hematochezia, No Other Genitourinary: No Dysuria, No Frequency, No Incontinence, No Hematuria, No Retention, No Other Musculoskeletal: No other, No neck pain, No shoulder pain, No arm pain, No back pain, No hand pain, No leg pain, No foot pain Skin: No Rash, No Lesions, No Jaundice, No Bruising, No Other Objective Vitals Vital Signs Date Time Temp Pulse Resp B/P (MAP) Pulse Ox O2 Delivery O2 Flow Rate FiO2 09/25/24 09:56 136/88 09/25/24 08:20 97.5 85 16 94 97.5 09/25/24 08:00 Nasal Cannula* 3 32 Intake/Output Intake and Output 09/25/24 07:00 Intake Total 0 ml Balance 0 ml Intake Oral 0 ml # Voids 1 Medications Current Medications Medications Dose Ordered Sig/Bossman Route Start Time Stop Time Status Last Admin Dose Admin Acetaminophen 650 mg Q6HP PRN PO 09/24/24 17:45 09/25/24 04:34 650 MG Docusate Sodium 100 mg DAILY PO 09/25/24 10:00 09/25/24 09:56 100 MG Nitroglycerin 0.4 mg Q5MINP PRN SL 09/24/24 17:45 Morphine Sulfate 2 mg Q30M PRN IV 09/24/24 17:45 Methylprednisolone Sodium Succinate 40 mg BID IV 09/24/24 22:00 09/25/24 09:57 40 MG Famotidine 10 mg DAILY IV 09/25/24 10:00 09/25/24 10:01 10 MG Albuterol 2.5 mg Q6HWA [facility] 09/24/24 18:00 09/25/24 11:10 2.5 MG Albuterol 2.5 mg Q4HPRN PRN [facility] 09/24/24 17:45 Ipratropium [place] 0.5 mg Q6HWA [facility] 09/24/24 18:00 09/25/24 11:10 0.5 MG Ipratropium [place] 0.5 mg Q4HPRN PRN [facility] 09/24/24 17:45 Nifedipine 30 mg DAILY PO 09/25/24 10:00 09/25/24 09:56 30 MG Atorvastatin Calcium 40 mg HS PO 09/24/24 22:00 09/24/24 22:08 40 MG Buspirone HCl 15 mg BID PO 09/24/24 22:00 09/24/24 22:12 15 MG Potassium Chloride 20 meq DAILY PO 09/25/24 10:00 Laboratory Results Laboratory Tests 09/25/24 04:59 Chemistry Test 09/24/24 13:50 09/25/24 04:59 Calcium Level 9.7 mg/dL (8.7-10.4) 9.9 mg/dL (8.7-10.4) Albumin 4.5 g/dL (3.2-4.8) Total Protein 6.9 g/dL (5.7-8.2) LFT Test 09/25/24 04:59 Alanine Aminotransferase (ALT) 20 U/L (7-40) Alkaline Phosphatase 71 U/L (46-116) Aspartate Amino Transferase (AST) 12 U/L (13-40) L Total Bilirubin 0.8 mg/dL (0.2-1.0) Labs and/or images reviewed: Labs reviewed by me, Image(s) reviewed by me Assessment/Plan Assessment/Plan nstemi aortic stenosis copd ascending aortic aneurysm Plan discussed with: Patient SRINIVAS BLANCHARD MD Sep 25, 2024 11:14
--- NOTE | 2024-09-25 11:26 | DVHPN2 ---
Reviewed: Care Plan, H&P, Labs, Medications, Previous Orders, Radiology Changes from previous H/P or p: No Changes Eyes: No Pain, No Vision change, No Conjunctivae inflammation, No Eyelid inflammation, No Other, No Redness ENT: No Ear pain, No Ear discharge, No Nose pain, No Nose discharge, No Nose congestion, No Mouth pain, No Mouth swelling, No Throat pain, No Throat swelling, No Other Cardiovascular: No Chest Pain, No Palpitations, No Orthopnea, No Paroxysmal Noc. Dyspnea, No Edema, No Lt Headedness, No Other Respiratory: Cough; No Dry; Shortness of breath; No SOB with excertion, No Wheezing, No Hemoptysis, No Pleuritic Pain, No Sputum, No Other Gastrointestinal: No Nausea, No Vomiting, No Abdominal Pain, No Diarrhea, No Constipation, No Melena, No Hematochezia, No Other Genitourinary: No Dysuria, No Frequency, No Incontinence, No Hematuria, No Retention, No Other Musculoskeletal: No other, No neck pain, No shoulder pain, No arm pain, No back pain, No hand pain, No leg pain, No foot pain Skin: No Rash, No Lesions, No Jaundice, No Bruising, No Other Objective Vitals Vital Signs Date Time Temp Pulse Resp B/P (MAP) Pulse Ox O2 Delivery O2 Flow Rate FiO2 09/25/24 09:56 136/88 09/25/24 08:20 97.5 85 16 94 97.5 09/25/24 08:00 Nasal Cannula* 3 32 Intake/Output Intake and Output 09/25/24 07:00 Intake Total 0 ml Balance 0 ml Intake Oral 0 ml # Voids 1 Medications Current Medications Medications Dose Ordered Sig/Bossman Route Start Time Stop Time Status Last Admin Dose Admin Acetaminophen 650 mg Q6HP PRN PO 09/24/24 17:45 09/25/24 04:34 650 MG Docusate Sodium 100 mg DAILY PO 09/25/24 10:00 09/25/24 09:56 100 MG Nitroglycerin 0.4 mg Q5MINP PRN SL 09/24/24 17:45 Morphine Sulfate 2 mg Q30M PRN IV 09/24/24 17:45 Methylprednisolone Sodium Succinate 40 mg BID IV 09/24/24 22:00 09/25/24 09:57 40 MG Famotidine 10 mg DAILY IV 09/25/24 10:00 09/25/24 10:01 10 MG Albuterol 2.5 mg Q6HWA [facility] 09/24/24 18:00 09/25/24 11:10 2.5 MG Albuterol 2.5 mg Q4HPRN PRN [facility] 09/24/24 17:45 Ipratropium [place] 0.5 mg Q6HWA NEB 09/24/24 18:00 09/25/24 11:10 0.5 MG Ipratropium [place] 0.5 mg Q4HPRN PRN [facility] 09/24/24 17:45 Nifedipine 30 mg DAILY PO 09/25/24 10:00 09/25/24 09:56 30 MG Atorvastatin Calcium 40 mg HS PO 09/24/24 22:00 09/24/24 22:08 40 MG Buspirone HCl 15 mg BID PO 09/24/24 22:00 09/24/24 22:12 15 MG Potassium Chloride 20 meq DAILY PO 09/25/24 10:00 Laboratory Results Laboratory Tests 09/25/24 04:59 Chemistry Test 09/24/24 13:50 09/25/24 04:59 Calcium Level 9.7 mg/dL (8.7-10.4) 9.9 mg/dL (8.7-10.4) Albumin 4.5 g/dL (3.2-4.8) Total Protein 6.9 g/dL (5.7-8.2) LFT Test 09/25/24 04:59 Alanine Aminotransferase (ALT) 20 U/L (7-40) Alkaline Phosphatase 71 U/L (46-116) Aspartate Amino Transferase (AST) 12 U/L (13-40) L Total Bilirubin 0.8 mg/dL (0.2-1.0) Assessment/Plan Assessment/Plan Non with troponin of 138: 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 Johnson Acute COPD exacerbation: Albuterol Atrovent Solu-Medrol, pulmonary consult by Dr. Vargas appreciated, history of aortic root dilatation Ascending aortic aneurysm Acute asthma exacerbation med-nebs consult for Dr. 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
[2024-09-25] MEDS: LEXAPRO 10 MG PO SCH (14:00)
[2024-09-25 16:50] LABS: Base Excess -0.5 mmol/L (-2.0-3.0)
--- NOTE | 2024-09-25 20:42 | DVHPN2 ---
Progress Note - Dictate Date Seen: Sep 25, 2024 Medical Necessity Reason Pt with a Central, PICC or Fol: No Subjective Patient seen and examined at bedside. Remains on supplemental oxygen Overnight events reviewed vital signs Vital Sign Date Time Temp Pulse Resp B/P (MAP) Pulse Ox O2 Delivery O2 Flow Rate FiO2 09/25/24 18:42 87 16 98 09/25/24 16:47 98.0 129/57 (81) 98.0 09/25/24 11:10 Nasal Cannula 3.0 09/25/24 11:10 32 Total Intake and Output 09/24/24 09/24/24 09/25/24 15:00 23:00 07:00 Intake Total 0 ml Balance 0 ml medications Current Medications Medications Dose Ordered Sig/Bossman Route Start Time Stop Time Status Last Admin Dose Admin Acetaminophen 650 mg Q6HP PRN PO 09/24/24 17:45 09/25/24 04:34 650 MG Docusate Sodium 100 mg DAILY PO 09/25/24 10:00 09/25/24 09:56 100 MG Nitroglycerin 0.4 mg Q5MINP PRN SL 09/24/24 17:45 Morphine Sulfate 2 mg Q30M PRN IV 09/24/24 17:45 Methylprednisolone Sodium Succinate 40 mg BID IV 09/24/24 22:00 09/25/24 09:57 40 MG Albuterol 2.5 mg Q6HWA [facility] 09/24/24 18:00 09/25/24 18:42 2.5 MG Albuterol 2.5 mg Q4HPRN PRN NEB 09/24/24 17:45 Ipratropium [place] 0.5 mg Q6HWA [facility] 09/24/24 18:00 09/25/24 18:42 0.5 MG Ipratropium [place] 0.5 mg Q4HPRN PRN [facility] 09/24/24 17:45 Nifedipine 30 mg DAILY PO 09/25/24 10:00 09/25/24 09:56 30 MG Atorvastatin Calcium 40 mg HS PO 09/24/24 22:00 09/24/24 22:08 40 MG Buspirone HCl 15 mg BID PO 09/24/24 22:00 09/24/24 22:12 15 MG Potassium Chloride 20 meq DAILY PO 09/25/24 10:00 Patient Own Medication 1 DAILY PO 09/25/24 14:00 Famotidine 20 mg DAILY IV 09/26/24 10:00 objective Gen.: Patient lying in bed in no apparent distress. On supplemental oxygen. Head: Normocephalic, atraumatic. Eyes: EOMI/PERRLA. Ears: Normal hearing. Normal anatomy. Neck/trachea: Trachea midline, supple. Nose: Normal external anatomy. Mouth: Moist mucous membranes. Chest: Decreased air entry bilaterally. Bilateral wheezing, improved. No rhonchi. Cardiovascular: Positive S1, positive S2. Regular rate and rhythm. Abdomen: Positive bowel sounds in all 4 quadrants. Soft, non-tender, non- distended. : Deferred. Rectal: Deferred. Skin: Warm, dry. Intact. Extremities: 2+ radial pulses bilaterally. No lower extremity edema. Neuro: Awake, alert, oriented x3. No gross motor or sensory deficits. Cranial nerves II through XII intact. Gait not assessed. laboratory and microbiology Laboratory Tests 09/25/24 04:59 Test 09/25/24 04:59 Range/Units Serum Glucose 178 H 74-106 mg/dL Assessment/Plan Impression: Acute hypoxic respiratory failure secondary to acute exacerbation of COPD Acute exacerbation of COPD Acute respiratory distress Obesity with a BMI of 32.5 Elevated troponin Events: Remains on supplemental oxygen, 3 LPM NC Taper O2 as tolerated CT chest demonstrates no acute opacities, pleural effusion or pneumothorax. Elevated troponin - f/u Cardiology recommendations Follow up Echo report Wheezing improved. Continue bronchodilators Continue steroids Patient is stable for discharge from the pulmonary standpoint for discharge in AM. Assess for home O2 requirements prior to discharge. Labs and imaging reviewed. Rest of plan as noted below. Plan: Supplemental oxygen Keep O2 saturation above 92%. Elevated troponin Follow up Cardiology recommendations. Follow up echocardiogram results. Bronchodilators IV steroids GI prophylaxis - Pepcid Prognosis: Poor given multiple comorbidities. Rest of plan per hospitalist and other consultants. Thank you ATUL Parham for allowing me to participate in this patient's care. Further recommendations will depend on patient's clinical course. Please do not hesitate to contact me if you have any questions or concerns. This medical document was created using an electronic medical record system with [employer] system. Although this document has been carefully reviewed, there may still be some phonetic and typographical errors. These areas are purely typographical due to imperfections of the software programs, and do not reflect any compromise in the patient's medical care. Plan discussed with: Patient, Other (MANPREET Mckeon) EVELINE ARNETT MD Sep 25, 2024 20:42
[2024-09-26] VITALS (10 sets, daily range): BP systolic 116–133; BP diastolic 58–80; PULSE 63–87; RESP 16–20; TEMP 97.4–98.5; O2SAT 92–98
[2024-09-26] MEDS: FAMOTIDINE (10MG/ML) 2ML VL IV SCH (09:23)
--- NOTE | 2024-09-26 11:29 | DVHPN2 ---
Reviewed: Care Plan, H&P, Labs, Medications, Previous Orders, Radiology Changes from previous H/P or p: No Changes Eyes: No Pain, No Vision change, No Conjunctivae inflammation, No Eyelid inflammation, No Other, No Redness ENT: No Ear pain, No Ear discharge, No Nose pain, No Nose discharge, No Nose congestion, No Mouth pain, No Mouth swelling, No Throat pain, No Throat swelling, No Other Cardiovascular: No Chest Pain, No Palpitations, No Orthopnea, No Paroxysmal Noc. Dyspnea, No Edema, No Lt Headedness, No Other Respiratory: Cough; No Dry; Shortness of breath; No SOB with excertion, No Wheezing, No Hemoptysis, No Pleuritic Pain, No Sputum, No Other Gastrointestinal: No Nausea, No Vomiting, No Abdominal Pain, No Diarrhea, No Constipation, No Melena, No Hematochezia, No Other Genitourinary: No Dysuria, No Frequency, No Incontinence, No Hematuria, No Retention, No Other Musculoskeletal: No other, No neck pain, No shoulder pain, No arm pain, No back pain, No hand pain, No leg pain, No foot pain Skin: No Rash, No Lesions, No Jaundice, No Bruising, No Other Objective Vitals Vital Signs Date Time Temp Pulse Resp B/P (MAP) Pulse Ox O2 Delivery O2 Flow Rate FiO2 09/26/24 10:00 94 Room Air* 0 21 09/26/24 09:29 133/75 09/26/24 09:00 97.4 68 20 97.4 Intake/Output Intake and Output 09/26/24 07:00 Intake Total 960 ml Balance 960 ml Intake Oral 960 ml # Voids 3 Medications Current Medications Medications Dose Ordered Sig/Bossman Route Start Time Stop Time Status Last Admin Dose Admin Acetaminophen 650 mg Q6HP PRN PO 09/24/24 17:45 09/25/24 04:34 650 MG Docusate Sodium 100 mg DAILY PO 09/25/24 10:00 09/26/24 09:24 100 MG Nitroglycerin 0.4 mg Q5MINP PRN SL 09/24/24 17:45 Morphine Sulfate 2 mg Q30M PRN IV 09/24/24 17:45 Methylprednisolone Sodium Succinate 40 mg BID IV 09/24/24 22:00 09/26/24 09:23 40 MG Albuterol 2.5 mg Q6HWA NEB 09/24/24 18:00 09/26/24 06:21 2.5 MG Albuterol 2.5 mg Q4HPRN PRN NEB 09/24/24 17:45 Ipratropium [place] 0.5 mg Q6HWA NEB 09/24/24 18:00 09/26/24 06:21 0.5 MG Ipratropium [place] 0.5 mg Q4HPRN PRN [facility] 09/24/24 17:45 Nifedipine 30 mg DAILY PO 09/25/24 10:00 09/26/24 09:29 30 MG Atorvastatin Calcium 40 mg HS PO 09/24/24 22:00 09/25/24 21:05 40 MG Buspirone HCl 15 mg BID PO 09/24/24 22:00 09/25/24 21:05 15 MG Potassium Chloride 20 meq DAILY PO 09/25/24 10:00 09/26/24 09:23 20 MEQ Patient Own Medication 1 DAILY PO 09/25/24 14:00 09/26/24 09:28 1 Famotidine 20 mg DAILY IV 09/26/24 10:00 09/26/24 09:23 20 MG Laboratory Results Laboratory Tests 09/25/24 04:59 Blood Gas Results Test 09/25/24 16:40 Arterial Blood pH 7.455 (7.350-7.450) FiO2 % 21.0 Labs and/or images reviewed: Labs reviewed by me, Image(s) reviewed by me Assessment/Plan Assessment/Plan Non ST-elevation [place] troponin of 138: Consult for patient's questioned documents examiner Dr. Johnson Acute COPD exacerbation: Albuterol Atrovent Solu-Medrol, pulmonary consult by Dr. Vargas appreciated, history of aortic root dilatation Ascending aortic aneurysm Acute asthma exacerbation med-nebs consult for Dr. Vargas Hypertension Hypercholesterolemia High level of anxiety: Continue home med Lexapro Patient left AMA during the last visit 05/26/2024 Has questioned documents examiner at [place] Time spent 65 minutes Patient is full code Advanced care planning time 20 mts Chest x-ray negative negative CT chest negative No need for antibiotics Patient feels better and wants to go home Plan discussed with: Patient My Orders Orders - SRINIVAS BLANCHARD MD Procedure Category Date Status Time *Consult CONS 09/25/24 Transmitted / 11:27 Patients Own PHA 09/25/24 In Process Medication 14:00 Date of Service: Sep 26, 2024 Billing Provider: SRINIVAS BLANCHARD MD Common Visit Codes: [id number] INP/OBS CARE(HIGH) SRINIVAS BLANCHARD MD Sep 26, 2024 11:29
--- NOTE | 2024-09-26 11:34 | DVHDS2 ---
Discharge Summary Date of Admission Sep 24, 2024 at 17:43 Date of Discharge: Sep 26, 2024 Admitting Diagnosis Shortness of breaths Wounds: None Labs/Diagnostic Data: Laboratory Results Test 09/25/24 16:40 09/25/24 04:59 Blood Gas Specimen Type Arterial Blood Gas Sample Site Left radial Blood Gas Patient Temperature 37.0 Arterial Blood Date Drawn [id number] Arterial Blood pH 7.455 (7.350-7.450) Arterial Blood Partial Pressure CO2 32.8 mmHg (32.0-45.0) Arterial Blood Partial Pressure O2 62.5 mmHg (83.0-108.0) Arterial Blood HCO3 22.5 mmol/L (21.0-28.0) Arterial Blood Oxygen Saturation 91.9 % (94.0-98.0) Arterial Blood Base Excess -0.5 mmol/L (-2.0-3.0) Arterial Blood Oxyhemoglobin 91.0 % (94.0-98.0) Arterial Blood Carboxyhemoglobin 0.6 % (0.5-1.5) Arterial Blood Methemoglobin 0.4 % (0.0-1.5) Eber Test Yes Blood Gas Total Hemoglobin 14.80 g/dL (12.0-16.0) Blood Gas Modality Room air FiO2 % 21.0 White Blood Count 7.4 10^3/uL (4.4-10.8) Red Blood Count 4.57 10^6/uL (4.0-5.20) Hemoglobin 14.8 g/dL (12.2-16.2) Hematocrit 42.7 % (36.0-46.0) Mean Corpuscular Volume 93.5 fL (80.0-100.0) Mean Corpuscular Hemoglobin 32.3 pg (28.0-32.0) Mean Corpuscular Hemoglobin Concent 34.6 g/dL (32.0-36.0) Red Cell Distribution Width 13.9 % (11.8-14.3) Platelet Count 225 10^3/uL (140-450) Mean Platelet Volume 7.2 fL (6.9-10.8) Neutrophils (%) (Auto) 90.9 % (37.0-80.0) Lymphocytes (%) (Auto) 7.6 % (10.0-50.0) Monocytes (%) (Auto) 1.2 % (0.0-12.0) Eosinophils (%) (Auto) 0.1 % (0.0-7.0) Basophils (%) (Auto) 0.2 % (0.0-2.0) Neutrophils # (Auto) 6.7 10 ^3/uL (1.6-8.6) Lymphocytes # (Auto) 0.6 10 ^3/uL (0.4-5.4) Monocytes # (Auto) 0.1 10 ^3/uL (0-1.3) Eosinophils # (Auto) 0 10 ^3/uL (0-0.8) Basophils # (Auto) 0 10 ^3/uL (0-0.2) Nucleated Red Blood Cells 0.0 % Sodium Level 137 mmol/L (136-145) Potassium Level 4.3 mmol/L (3.5-5.1) Chloride Level 103 mmol/L (98-107) Carbon Dioxide Level 24 mmol/L (20-31) Anion Gap 10 (5-15) Blood Urea Nitrogen 15 mg/dL (9-23) Creatinine 0.76 mg/dL (0.550-1.02) Glomerular Filtration Rate Calc 82 mL/min (>90) BUN/Creatinine Ratio 19.7 (10.0-20.0) Serum Glucose 178 mg/dL (74-106) Calcium Level 9.9 mg/dL (8.7-10.4) Total Bilirubin 0.8 mg/dL (0.2-1.0) Aspartate Amino Transferase (AST) 12 U/L (13-40) Alanine Aminotransferase (ALT) 20 U/L (7-40) Alkaline Phosphatase 71 U/L (46-116) Troponin I High Sensitivity 114 ng/L (</=34) Total Protein 6.9 g/dL (5.7-8.2) Albumin 4.5 g/dL (3.2-4.8) Other Laboratory Tests 09/25/24 04:59 Brief Hx & Hospital Course: 73-year-old female with multiple medical problems and frequent admissions including COPD aortic aneurysm asthma hypertension hypercholesterolemia anxiety came in complaining of chest pain and shortness of breaths troponin borderline elevated 138 treated per ACS protocol. Cardiology consult Dr. Johnson pending. Acute COPD exacerbation treated with albuterol Atrovent Solu-Medrol pulmonary consult by Dr. Johnson patient feels better stable vital signs no shortness a breath and wants to go home. Discharged home. Reviewed all the home medications. No new medications she will follow up with her primary Dr and Cardiology Dr. Johnson. Per patient the patient was seen by Dr. Enriquez for Dr. Johnson and advised outpatient follow up Consults/Reason for consult Pulmonology Dr. Vargas Cardiology consult for Dr. Johnson pending Operations or Procedures None Condition at Discharge: Poor Final Diagnosis/Problems List Non ST-elevation [place] troponin of 138: Consult for patient's chip washer Dr. Johnson Acute COPD exacerbation: Albuterol Atrovent Solu-Medrol, pulmonary consult by Dr. Vargas appreciated, history of aortic root dilatation Ascending aortic aneurysm Acute asthma exacerbation med-nebs consult for Dr. Vargas Hypertension Hypercholesterolemia High level of anxiety: Continue home med Lexapro Patient left AMA during the last visit 05/26/2024 Has chip washer at [place] Time spent 65 minutes Patient is full code Advanced care planning time 20 mts Chest x-ray negative negative CT chest negative Discharge Disposition: Home Discharge Instruct/Medications Diet: Cardiac 2g Na,low cholest Activity: Light activity Follow Up/Referral: Continue All previous home medications Follow up with the primary Dr and cardiology Dr. Johnson Medications: None Reviewed all Home medications 36 (Time taken for discharge summary 36 minutes) Discharge Statement: "Patient was advised to return to the ER or call 911 if any headaches, dizziness, shortness of breath, chest pain, abdominal pain, bleeding, fevers, or worsening of medical condition. Patient was counseled about treatment plan, medications, possible side effects, patientverbalized understanding. All questions were answered to the best of my ability. This discharge took greater then 30 minutes in planning, reviewing documentation, counseling the patient, and discussing with other team members." ASSESSMENT ASSESSMENT Hospital Course Improved Assessment Non ST-elevation [place] troponin of 138: Consult for patient's chip washer Dr. Johnson Acute COPD exacerbation: Albuterol Atrovent Solu-Medrol, pulmonary consult by Dr. Vargas appreciated, history of aortic root dilatation Ascending aortic aneurysm Acute asthma exacerbation med-nebs consult for Dr. Vargas Hypertension Hypercholesterolemia High level of anxiety: Continue home med Lexapro Patient left AMA during the last visit 05/26/2024 Has chip washer at [place] Time spent 65 minutes Patient is full code Advanced care planning time 20 mts Chest x-ray negative negative CT chest negative Date of Service: Sep 26, 2024 Billing Provider: SRINIVAS BLANCHARD MD Common Visit Codes: [id number]/[id number] DISCH DAY >30min SRINIVAS BLANCHARD MD Sep 26, 2024 11:34
--- NOTE | 2024-09-26 17:40 | DVHINCON2 ---
DATE OF CONSULTATION: 09/25/2024 CARDIAC CONSULTATION REFERRING PHYSICIAN: Dr. Knapp. CONSULTING PHYSICIAN: Dr. Jean. INDICATION: Elevated troponin. HISTORY OF PRESENT ILLNESS: The patient is a 73-year-old female with a history of COPD, hypertension, dyslipidemia, aortic stenosis, presented to the hospital with complaints of worsening shortness of breath and cough. She was admitted with diagnosis of asthma exacerbation. Her troponin was noted to be mildly elevated without significant trend up. The patient reportedly had an angiogram done within the past year, which did not show any significant coronary artery disease. She is denying any chest pain. PAST MEDICAL HISTORY: * Dyslipidemia. * Hypertension. * COPD. * Aortic stenosis. MEDICATIONS: Per med rec. ALLERGIES: IODINE. PHYSICAL EXAMINATION: GENERAL: Alert and awake, in no form of acute cardiopulmonary distress. VITAL SIGNS: Blood pressure , pulse 64 per minute, saturation . HEENT: No carotid bruits. No jugular venous distention. CHEST: Bilateral air entry. CARDIOVASCULAR: Precordial and carotid pulses palpable. Normal S1, S2. There is grade 2/6 systolic ejection murmur best heard over the aortic area. EXTREMITIES: No peripheral edema. DIAGNOSTIC DATA: Sodium 137, potassium 4.3, creatinine 0.7. Troponin first set is 136, second set is 132, third set is 114. CBC is normal. ASSESSMENT: * Asthma/chronic obstructive pulmonary disease exacerbation. * Elevated troponin, possibly demand, rule out ACS. * Hypertension. * Dyslipidemia. * Aortic stenosis. RECOMMENDATIONS: * Continue with bronchodilators. * Continue with statin. * Supplement potassium. * The patient had a recent angiogram, which did not show any significant coronary artery disease. * No indication for ischemia workup at this point. * Continue telemetry monitoring. * The patient advised to follow up with Dr. Johnson, her primary double reamer operator, as an outpatient in 1-2 weeks given underlying aortic stenosis. Thank you for allowing me to partake in the care of this patient. MD JEANNINE Trejo/OTIS/SAMI TID: [id number] RECEIPT: [id number]
--- NOTE | 2024-09-26 20:16 | DVHPN2 ---
Progress Note - Dictate Date Seen: Sep 26, 2024 Medical Necessity Reason Pt with a Central, PICC or Fol: No Subjective Patient seen and examined at bedside. Breathing comfortably on room air Overnight events reviewed vital signs Vital Sign Date Time Temp Pulse Resp B/P (MAP) Pulse Ox O2 Delivery O2 Flow Rate FiO2 09/26/24 12:54 98.0 63 16 132/80 (97) 95 98.0 09/26/24 11:47 Room Air* 0 21 Total Intake and Output 09/25/24 09/25/24 09/26/24 15:00 23:00 07:00 Intake Total 240 ml 420 ml 300 ml Balance 240 ml 420 ml 300 ml objective Gen.: Patient lying in bed in no apparent distress. On room air. Head: Normocephalic, atraumatic. Eyes: EOMI/PERRLA. Ears: Normal hearing. Normal anatomy. Neck/trachea: Trachea midline, supple. Nose: Normal external anatomy. Mouth: Moist mucous membranes. Chest: Decreased air entry bilaterally. Bilateral wheezing, improved. No rhonchi. Cardiovascular: Positive S1, positive S2. Regular rate and rhythm. Abdomen: Positive bowel sounds in all 4 quadrants. Soft, non-tender, non- distended. : Deferred. Rectal: Deferred. Skin: Warm, dry. Intact. Extremities: 2+ radial pulses bilaterally. No lower extremity edema. Neuro: Awake, alert, oriented x3. No gross motor or sensory deficits. Cranial nerves II through XII intact. Gait not assessed. laboratory and microbiology Laboratory Tests 09/25/24 04:59 Test 09/25/24 04:59 Range/Units Serum Glucose 178 H 74-106 mg/dL Assessment/Plan Impression: Acute hypoxic respiratory failure secondary to acute exacerbation of COPD Acute exacerbation of COPD Acute respiratory distress Obesity with a BMI of 32.5 Elevated troponin Events: Breathing on room air. No respiratory distress. Supplemental O2 PRN. CT chest demonstrates no acute opacities, pleural effusion or pneumothorax. Continue bronchodilators Continue steroids Patient is stable for discharge from the pulmonary standpoint. Follow up in Pulmonary Clinic in 1-2 weeks Labs and imaging reviewed. Rest of plan as noted below. Plan: Supplemental oxygen Keep O2 saturation above 92%. Elevated troponin Cardiology recommendations appreciated Follow up echocardiogram results. Bronchodilators IV steroids GI prophylaxis - Pepcid Prognosis: Guarded given multiple comorbidities. Rest of plan per hospitalist and other consultants. Thank you ATUL Parham for allowing me to participate in this patient's care. Further recommendations will depend on patient's clinical course. Please do not hesitate to contact me if you have any questions or concerns. This medical document was created using an electronic medical record system with [employer] dictation system. Although this document has been carefully reviewed, there may still be some phonetic and typographical errors. These areas are purely typographical due to imperfections of the software programs, and do not reflect any compromise in the patient's medical care. Plan discussed with: Patient, Other (MANPREET Parham) EVELINE ARNETT MD Sep 26, 2024 20:16
--- NOTE | 2024-09-28 08:29 | DVHSR ---
APPROVED REPORT EXAM: LIMITED Two-dimensional and M-mode echocardiogram with Doppler and color Doppler. Blood Pressure: 136/88 mmHg INDICATION Chest Pain Surgery/Intervention Bicuspid Aortic Valve RISK FACTORS Obesity: Height: 5' 9", Weight: 206 DIMENSIONS LVDd4.9 (3.8-5.7cm)LA (2D)4.0 (1.9-4.0cm)Aortic Root2.9 (2.0-3.7cm) LVDs3.5 (2.5-4.0cm)LA (MM) (1.9-4.0cm)Aortic Cusp Exc1.5 (1.5-2.0cm) EF (%) 55.0 (55-70%)Rt. Atrium3.9 (1.9-4.0cm)Asc. Aorta cm IVSd1.0 (0.7-1.1cm)RV (D) (1.8-2.4cm) PWd1.2 (0.7-1.1cm) Mitral Valve MitralMitral Stenosis E wave0.80m/sMV Mean GR.mmHg A wave1.20m/sMV Peak GR.mmHg E/A ratio0.72D MVAcm2 Aortic Valve Aortic ValveAortic Stenosis V11.30m/Brenda Mean GR.44mmHg V24.20m/Brenda Peak GR.72mmHg LVOT Diameter2.0 (1.8-2.4cm)Doppler AVA0.97cm2 Tricuspid Valve TR Velocity3.60m/s [id number] Other Information Quality : Technically LimitedRhythm : Technically limited study due to body habitus. Conclusion agathad study lvef 65% severe by gradient, mean gradient is 43 mmhg, limited image quality
--- NOTE | 2024-09-28 12:35 | ECG ---
[facility] Test Date: 2024-09-24 Test Time: 13:47:13 Pat Name: JOJO CROW Department: ER Room: 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
== END 2024-09-26 13:59 | disposition home or self-care (01) | DRG 189 ==
LOC: ER 13:28 → TELE 17:43 → TELE-WESTW 22:48
PROVIDERS: ADMIT Family Medicine; ATTEND Family Medicine
DX: J96.21 Acute and chronic respiratory failure with hypoxia (principal); I21.A1 Myocardial infarction type 2; J45.41 Moderate persistent asthma with (acute) exacerbation; J44.1 Chronic obstructive pulmonary disease with (acute) exacerbation; E66.9 Obesity, unspecified; E78.00 Pure hypercholesterolemia, unspecified; F41.9 Anxiety disorder, unspecified; I35.0 Nonrheumatic aortic (valve) stenosis; I71.21 Aneurysm of the ascending aorta, without rupture; I10 Essential (primary) hypertension; Z68.32 Body mass index [BMI] 32.0-32.9, adult; Z82.0 Family history of epilepsy and other diseases of the nervous system; Z79.899 Other long term (current) drug therapy
CPT/HCPCS: 36415; 36600; 71045; 71250; 80048; 80053; 82805; 84484; 85025; 93005; 93306; 94640; 99291; G0378; J3490

== ENCOUNTER 2024-11-13 22:18 | Inpatient (IN) | payer MEDICARE, OTHER ==
[~2024-11-13] VITALS: Ht 175.3 cm; Wt 86.9 kg
[~2024-11-13 22:18] MED LIST changes: -BUSP15TA60 PO; +ESCI1TAB36 PO; +LOSA-533 PO
[2024-11-13 22:40] VITALS: O2SAT 96
--- NOTE | 2024-11-13 23:12 | ED.PDOC ---
History of Present Illness HPI Comments 74-year-old female came to emergency room via EMS for hypotension. Patient was at home when she possibly had a syncopal attack, unwitnessed, was seen by family members lying on the bedroom floor. Upon arrival of paramedics, noted to be hypotensive at 52/31 mmHg and bradycardic at 40's bpm. Patient was given Atropine 1mg and given 500cc IV fluids and it improved to 110/53 mmHg and 55 bpm. Patient currently complaining of chest tightness and dizziness. Chief Complaint: Low Blood Pressure Time Seen by MD: 23:12 Primary Care Provider: unknown Reviewed Notes: Nurses Notes Allergies: Coded Allergies: Iodine (Verified Allergy, Mild, 03/22/24) itching 20 years ago Home Meds Active Scripts Prednisone (Prednisone) 20 Mg Tab, 20 MG PO BID for 5 Days, #10 TAB Prov:IMELDA TOBAR MD 09/15/24 Albuterol Sulfate (Albuterol Sulfate Hfa) 108 Mcg/Act Aer, 108 MCG IN Q4HP PRN for 10 Days, #1 AER Prov:IMELDA TOBAR MD 09/15/24 Albuterol Sulfate (Albuterol Sulfate) 0.083 % Neb, 1 VIAL NEB Q4HPRN, #50 VIAL Prov:IMELDA TOBAR MD 09/15/24 Apixaban Base (ELIQUIS) 5 Mg Tab, 5 MG PO BID, #90 TAB Prov:SRINIVAS BLANCHARD MD 04/01/24 Reported Medications Escitalopram Oxalate (ESCITALOPRAM OXALATE) 10 Mg Tab, 1 TAB PO DAILY 09/24/24 Guaifenesin (Mucus Relief) 600 Mg Tab, 1 TAB PO BID PRN for CHEST CONGESTION for 45 Days, #90 05/26/24 Pantoprazole Sodium Sesquihydr (Protonix) 40 Mg Tab, 1 TAB PO DAILY for 30 Days, #30 05/26/24 Potassium Chloride (K-Tab) 20 Meq Tab, 1 TAB PO DAILY for 90 Days, #90 05/26/24 Benzonatate (Benzonatate) 100 Mg Cap, 1 CAP PO TID 05/26/24 Atorvastatin Calcium (ATORVASTATIN CALCIUM) 40 Mg Tab, 1 TAB PO DAILY 05/26/24 Nifedipine (Nifedipine Er) 30 Mg Tab, 30 MG PO DAILY, TAB 6/22/24 Information Source: Patient Mode of Arrival: EMS Severity: Moderate Timing: Hours Duration: Since onset Prehospital treatment: Accucheck, IVF, Treatment Past Medical History PAST MEDICAL HISTORY: COPD, High Lipids, HTN, MA, UTI'S Surgical History: Denies all surgeries PORT ENGINEER 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: No 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 PORT ENGINEER History Family History Family History: Reviewed,noncontributory to illness Social History Smoker: Non-Smoker Alcohol: Denies ETOH Use Drugs: Denies Drug Use Lives In: Home Constitutional: denies: chills, diaphoresis, fatigue, fever, malaise, sweats, weakness, others EENTM: denies: blurred vision, double vision, ear bleeding, ear discharge, ear drainage, ear pain, ear ringing, eye pain, eye redness, hearing loss, mouth pain, mouth swelling, nasal discharge, nose bleeding, nose congestion, nose pain, photophobia, tearing, throat pain, throat swelling, voice changes, others Respiratory: denies: cough, hemoptysis, orthopnea, SOB at rest, shortness of breath, SOB with excertion, stridor, wheezing, others Cardiovascular: reports: chest pain, dizzy spells; denies: diaphoresis, Dyspnea on exertion, edema, irregular heart beat, left arm pain, lightheadedness, palpitations, PND, syncope, others Gastrointestinal: denies: abdomen distended, abdominal pain, blood streaked bowels, constipated, diarrhea, dysphagia, difficulty swallowing, hematemesis, melena, nausea, poor appetite, poor fluid intake, rectal bleeding, rectal pain, vomiting, others Genitourinary: denies: abnormal vagina bleeding, burning, dyspareunia, dysuria, flank pain, frequency, hematuria, incontinence, pain, , vagina discharge, urgency, others Neurological: reports: dizziness, fainting, weakness; denies: headache, left sided numbness, left sided weakness, numbness, paresthesia, pre-existing deficit, right sided numbness, right sided weakness, seizure, speech problems, tingling, tremors, others Musculoskeletal: denies: back pain, gout, joint pain, joint swelling, muscle pain, muscle stiffness, neck pain, others Integumetry: denies: bruises, change in color, change in hair/nails, dryness, laceration, lesions, lumps, rash, wounds, others Allergic/Immunocompromised: denies: Difficulty Healing, Frequent Infections, Hives, Itching, others Hematologic/Lymphatic: denies: anemia, blood clots, easy bleeding, easy bruising, swollen glands, others Endocrine: denies: excessive hunger, excessive sweating, excessive thirst, excessive urination, flushing, intolerance to cold, intolerance to heat, unexplained weight gain, unexplained weight loss, others Psychiatric: denies: anxiety, bipolar disorder, depression, hopeless, panic disorder, schizophrenia, sleepless, suicidal, others Physical Exam General Appearance: Moderate Distress, No Apparent Distress, Normal HEENT: Normal ENT Inspection, Pharynx Normal, TMs Normal Neck: Full Range of Motion, Non-Tender, Normal, Normal Inspection Respiratory: Chest Non-Tender, Lungs Clear, No Accessory Muscle Use, No Respiratory Distress, Normal Breath Sounds Cardiovascular: No Edema, No JVD, No Murmur, No Gallop, Normal Peripheral Pulses, Regular Rate/Rhythm Breast Exam: Deferred Gastrointestinal: No Organomegaly, Non Tender, No Pulsatile Mass, Normal Bowel Sounds, Soft Genitalia: Deferred Pelvic: Deferred Rectal: Deferred Extremities: No calf tenderness, Normal capillary refill, Normal inspection, Normal range of motion, Non-tender, No pedal edema Musculoskeletal : Apperance: Normal Neurologic: Alert, contracting analyst 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 Was a procedure done?: No EKG EKG : Pulse Rate (adult): 54 Cardiac Rhythm: NSR Differential Dx Considerations may include: Anemia, electrolyte imbalance, head trauma, fall injury, hypotension, bradycardia, syncope X-Ray, Labs, Meds, VS Vital Signs Date Time Temp Pulse Resp B/P (MAP) Pulse Ox O2 Delivery O2 Flow Rate FiO2 11/14/24 02:15 60 11/14/24 02:00 63 19 96/55 (69) 11/14/24 01:00 62 12 130/68 (88) 98 11/14/24 00:00 57 12 120/60 (80) 100 11/13/24 23:26 54 11/13/24 23:15 54 11/13/24 22:47 98.5 59 9 116/65 (82) 99 98.5 11/13/24 22:40 96 Nasal Cannula* 2 28 11/13/24 22:24 53 11/13/24 22:20 98.0 55 18 110/53 (72) 96 Lab Test 11/14/24 02:05 11/14/24 01:53 11/14/24 00:21 11/13/24 23:18 Range/Units Troponin I High Sensitivity 238 *H 221 *H 226 *H </=34 ng/L Urine Color Light-yellow Yellow Urine Clarity Clear Clear Urine pH 5.5 5.0-9.0 Urine Specific [place] 1.010 1.001-1.035 Urine Protein Negative Negative Urine Ketones Trace Negative Urine Blood Negative Negative /uL Urine Nitrite Negative Negative Urine Bilirubin Negative Negative Urine Urobilinogen Normal Negative mg/dL Urine Leukocyte Esterase Negative Negative /uL Urine RBC 3 0 - 4 /hpf Urine Microscopic WBC 2 0-5 /HPF Urine Squamous Epithelial Cells Few <5 /hpf Urine Transitional Epithelial Cells Few <2 /hpf Urine Renal Epithelial Cells Few None Seen /hpf Urine Bacteria None seen None Seen /hpf Urine Hyaline Casts Few 0 - 2 /lpf Urine Mucus Few None Seen Urine Glucose Normal Normal mg/dL Prothrombin Time 10.3 9.3-11.8 sec Prothrombin Time INR 0.97 0.9-1.15 Activated Partial Thromboplast Time 23.7 L 24.5-34.5 SEC White Blood Count 3.9 L 4.4-10.8 10^3/uL Red Blood Count 4.10 4.0-5.20 10^6/uL Hemoglobin 12.8 12.2-16.2 g/dL Hematocrit 38.8 36.0-46.0 % Mean Corpuscular Volume 94.7 80.0-100.0 fL Mean Corpuscular Hemoglobin 31.3 28.0-32.0 pg Mean Corpuscular Hemoglobin Concent 33.1 32.0-36.0 g/dL Red Cell Distribution Width 13.0 11.8-14.3 % Platelet Count 190 140-450 10^3/uL Mean Platelet Volume 7.4 6.9-10.8 fL Neutrophils (%) (Auto) 40.3 37.0-80.0 % Lymphocytes (%) (Auto) 39.9 10.0-50.0 % Monocytes (%) (Auto) 10.3 0.0-12.0 % Eosinophils (%) (Auto) 8.5 H 0.0-7.0 % Basophils (%) (Auto) 1.0 0.0-2.0 % Neutrophils # (Auto) 1.6 1.6-8.6 10 ^3/uL Lymphocytes # (Auto) 1.6 0.4-5.4 10 ^3/uL Monocytes # (Auto) 0.4 0-1.3 10 ^3/uL Eosinophils # (Auto) 0.3 0-0.8 10 ^3/uL Basophils # (Auto) 0 0-0.2 10 ^3/uL Nucleated Red Blood Cells 0.0 % Sodium Level 145 136-145 mmol/L Potassium Level 4.6 3.5-5.1 mmol/L Chloride Level 110 H 98-107 mmol/L Carbon Dioxide Level 23 20-31 mmol/L Anion Gap 12 5-15 Blood Urea Nitrogen 19 9-23 mg/dL Creatinine 0.95 0.550-1.02 mg/dL Glomerular Filtration Rate Calc 62 >90 mL/min BUN/Creatinine Ratio 20.0 10.0-20.0 Serum Glucose 106 74-106 mg/dL Calcium Level 9.3 8.7-10.4 mg/dL Magnesium Level 1.8 1.6-2.6 mg/dL Total Bilirubin 0.3 0.2-1.0 mg/dL Aspartate Amino Transferase (AST) 20 13-40 U/L Alanine Aminotransferase (ALT) 20 7-40 U/L Alkaline Phosphatase 51 46-116 U/L B-Type Natriuretic Peptide 85.76 0-100 pg/mL Total Protein 5.5 L 5.7-8.2 g/dL Albumin 3.9 3.2-4.8 g/dL Current Medications Medications (Trade) Dose Ordered Sig/Bossman Route Start Time Stop Time Status Last Admin Sodium Chloride 1,000 ml @ 1,000 mls/hr Q1H ONCE IV 11/13/24 23:15 11/14/24 00:14 DC 11/13/24 23:18 Sodium Chloride 1,000 ml @ 150 mls/hr Q6H40M ONCE IV 11/13/24 23:15 11/14/24 05:54 11/14/24 00:29 CHEST RADIOGRAPH Indication: lo blood press Technique: Single frontal view of the chest was obtained Comparison: XY CHEST PORTABLE on DOS: 09/24/24, XY CHEST PORTABLE on DOS: 09/15/24, XY CHEST PORTABLE on DOS: 05/25/24 FINDINGS: Lines and Tubes: None Lungs: Clear Pleura: No effusion. No pneumothorax. Cardiomediastinal contours: Unremarkable Bones: Unremarkable IMPRESSION: Clear lungs. BNP is 86. EKG is as follows 226, 221, and 2 38 EKG shows no signs of ischemia. Head CT is pending. The patient will be admitted to the hospitalist for further evaluation and care. Time of 1ST Reevaluation: 23:02 Reevaluation 1ST: Unchanged Patient Education/Counseling: Diagnosis, Treatment Family Education/Counseling: No Family Present Departure 1 Departure Time of Disposition: 04:08 Impression: Primary Impression: Syncope Qualified Codes: R55 - Syncope and collapse Additional Impressions: Ground-level fall Non-STEMI (non-ST elevated myocardial infarction) Elevated troponin Hypotension Bradycardia Symptomatic bradycardia Disposition: ADMITTED INPATIENT Admit to: Tele Condition: Guarded Critical Care Note Critical Care Time?: Yes (45 min-critical care time only) Critical care comment: Hypotension, bradycardia Stability Stability form required: No Heart Score Heart Score: Heart Score Response (Comments) Value History Moderate Suspicious 1 EKG Repolarization Disturb 1 Age >65 2 Risk Factors >3 or Hx ASHD 2 Troponin 1-2 x's Normal limit 1 Total 7 I personally scribed for ERROL CHRISTIAN MD ([email or web address]) on 11/13/24 at 23:12. Electronically submitted by Julio Bunch ([email or web address]). I personally scribed for ERROL CHRISTIAN MD ([email or web address]) on 11/13/24 at 23:14. Electronically submitted by Julio Bunch ([email or web address]). I personally scribed for ERROL CHRISTIAN MD (LANDEN) on 11/13/24 at 23:26. Electronically submitted by Julio Bunch ([email or web address]). ERROL CHRISTIAN MD Nov 13, 2024 23:12
--- NOTE | 2024-11-13 23:17 | DVH ---
CHEST RADIOGRAPH Indication: lo blood press Technique: Single frontal view of the chest was obtained Comparison: XY CHEST PORTABLE on DOS: 09/24/24, XY CHEST PORTABLE on DOS: 09/15/24, XY CHEST PORTABLE on DOS: 05/25/24 FINDINGS: Lines and Tubes: None Lungs: Clear Pleura: No effusion. No pneumothorax. Cardiomediastinal contours: Unremarkable Bones: Unremarkable IMPRESSION: Clear lungs.
[2024-11-13] MEDS: SODIUM CHLORIDE 0.9% 1,000 ML IV ONE (23:18)
--- NOTE | 2024-11-13 23:18 | ECG ---
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
[2024-11-13 23:39] LABS: Basophils # (auto) 0 10 ^3/uL (0-0.2); Eosinophils # (auto) 0.3 10 ^3/uL (0-0.8); Eosinophils % (auto) 8.5 % (0.0-7.0); Hematocrit 38.8 % (36.0-46.0); Hemoglobin 12.8 g/dL (12.2-16.2); Lymphocytes # (auto) 1.6 10 ^3/uL (0.4-5.4); Lymphocytes % (auto) 39.9 % (10.0-50.0); Mean Corpuscular Hemoglobin 31.3 pg (28.0-32.0); Mean Corpuscular Hgb Conc. 33.1 g/dL (32.0-36.0); Mean Corpuscular Volume 94.7 fL (80.0-100.0); Monocytes # (auto) 0.4 10 ^3/uL (0-1.3); Monocytes % (auto) 10.3 % (0.0-12.0); Neutrophils # (auto) 1.6 10 ^3/uL (1.6-8.6); Neutrophils % (auto) 40.3 % (37.0-80.0); Platelet Count (auto) 190 10^3/uL (140-450); White Blood Cell 3.9 10^3/uL (4.4-10.8)
[2024-11-14] VITALS (10 sets, daily range): BP systolic 133–158; BP diastolic 68–75; PULSE 53–62; RESP 16–20; TEMP 97.7–98.2; O2SAT 56–100
[2024-11-14 00:01] LABS: Alanine Aminotransferase 20 U/L (7-40); Albumin 3.9 g/dL (3.2-4.8); Alkaline Phosphatase 51 U/L (46-116); Anion Gap 12 (5-15); Aspartate Aminotransferase 20 U/L (13-40); Blood Urea Nitrogen 19 mg/dL (9-23); Calcium 9.3 mg/dL (8.7-10.4); Carbon Dioxide 23 mmol/L (20-31); Magnesium 1.8 mg/dL (1.6-2.6); Potassium 4.6 mmol/L (3.5-5.1); Sodium 145 mmol/L (136-145)
[2024-11-14 00:03] LABS: Bilirubin, Total 0.3 mg/dL (0.2-1.0); Chloride 110 mmol/L (98-107); Glucose 106 mg/dL (74-106); Total Protein 5.5 g/dL (5.7-8.2)
[2024-11-14] MEDS: SODIUM CHLORIDE 0.9% 1,000 ML IV ONE (00:29)
[2024-11-14 01:15] LABS: INR 0.97 (0.9-1.15); Partial Thromboplastin Time 23.7 SEC (24.5-34.5); Prothrombin Time 10.3 sec (9.3-11.8)
--- NOTE | 2024-11-14 02:18 | ECG ---
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
[2024-11-14 02:33] LABS: Urine Bacteria None Seen /hpf (None Seen)
[2024-11-14 03:24] LABS: Urine Blood Negative /uL (Negative); Urine Clarity Clear (Clear); Urine Color Light-Yellow (Yellow); Urine Hyaline Cast FEW /lpf (0 - 2); Urine Mucus FEW (None Seen); Urine Protein, UAD Negative (Negative); Urine Squamous Epithelial Cell FEW /hpf (<5); Urine Urobilinogen Normal (Negative); Urine WBC 2 /HPF (0-5); Urine pH 5.5 (5.0-9.0)
[2024-11-14] MEDS ORDERED: DOCUSATE SOD 100 MG CAP PO PRN (04:45)
[2024-11-14] MEDS ORDERED: NITROGLYCERIN 0.4 MG SL TAB SL PRN (04:45)
[2024-11-14] MEDS ORDERED: MORPHINE SULFATE INJ 2 MG/ml SYRG IV PRN (04:45)
[2024-11-14] MEDS ORDERED: ACETAMINOPHEN 325 MG TAB PO PRN (04:45)
[2024-11-14] MEDS ORDERED: HYDROcodone-ACET 5/325MG TAB PO PRN (04:45)
[2024-11-14] MEDS ORDERED: ONDANSETRON HCL 4 MG/2 ML VIAL IV PRN (04:45)
--- NOTE | 2024-11-14 04:45 | DVH ---
EXAM: CT HEAD WITHOUT CONTRAST INDICATION: syncope TECHNIQUE: CT of the head without intravenous contrast. Radiation Dose Information: CT Dose: CTDI volume is 64.9 mGy. Dose-length product is 1276.5 mGy*cm The dose indicators for CT are the volume Computed Tomography (CT) Dose Index (CTDIvol) and the Dose Length Product (DLP), and are measured in units of mGy and mGy-cm, respectively. These indicators are not patient dose, but values generated from the CT scanner acquisition factors. The report includes radiation exposure data for exposures received during this examination. COMPARISON: None FINDINGS: There is no evidence of acute intracranial hemorrhage, extra-axial collection, mass effect, midline s hift, herniation or hydrocephalus. The ventricles, sulci and cisterns are age appropriate. The goncalves-white differentiation is intact. The visualized paranasal sinuses and mastoid air cells are clear. The surrounding soft tissues and osseous structures are unremarkable. IMPRESSION: 1. No acute intracranial abnormality.
--- NOTE | 2024-11-14 04:50 | DVHHP2 ---
History of Present Illness Reason for Visit: Syncopal episode History of Present Illness The patient is a 74-year-old female with past medical history of UTIs, COPD, NE, hyperlipidemia, and hypertension who presented to [facility] ED for evaluation of syncopal episode. Patient was noted to be hypotensive with blood pressure 50 2/31 bradycardia rate in the 40s and was given atropine 1 mg, 500 cc of IV fluid by paramedics, blood pressure improved to 110/53, heart rate [address] to our facility ED. patient was seen and evaluated in the ED, laboratory data shows WBC 3.9, platelets 190, sodium 145, potassium 4.6, BUN 19, creatinine 0.95, GFR 62, glucose 106, troponin 226, BNP 85.76, blood pressure 95/55, heart rate 60, temperature 98.5 F, O2 saturation 98% on oxygen. Head CT showed no acute intracranial abnormality. Patient was given aspirin 325 mg p.o. x1, Lovenox 80 mg subcutaneous, please see medication orders section in the computer. On my assessment, patient denies chest pain, no headache, no dizziness, no abdominal pain, no diarrhea, no nausea, no vomiting, no fever, no chills. Patient was admitted for further evaluation and medical management. Past Medical History COPD, High Lipids, HTN, NE, UTI'S Past Surgical History Denies all surgeries Family History Reviewed, noncontributory to the management of this case. Past Social History The patient lives at home, denies smoking, alcohol or illicit drugs abuse. Review of Systems Constitutional: Yes: Weakness; No: Fever, Chills, Sweats, Malaise, Other Eyes: No: Pain, Vision change, Conjunctivae inflammation, Eyelid inflammation, Other, Redness ENT: No: Ear pain, Ear discharge, Nose pain, Nose discharge, Nose congestion, Mouth pain, Mouth swelling, Throat pain, Throat swelling, Other Respiratory: No: Cough, Dry, Shortness of breath, SOB with excertion, Wheezing, Hemoptysis, Pleuritic Pain, Sputum, Wheezing, Other Cardiovascular: Chest Pain, Other (Dizzy spells); No: Palpitations, Orthopnea, Paroxysmal Noc. Dyspnea, Edema, Lt Headedness Gastrointestinal: No: Nausea, Vomiting, Abdominal Pain, Diarrhea, Constipation, Melena, Hematochezia, Other Genitourinary: No Dysuria, No Frequency, No Incontinence, No Hematuria, No Retention, No Other Musculoskeletal: No: other, neck pain, shoulder pain, arm pain, back pain, hand pain, leg pain, foot pain Skin: No: Rash, Lesions, Jaundice, Bruising, Other Neurological: Weakness, Other (Dizziness, fainting.); No: Numbness, Incoordination, Change in speech, Confusion, Seizures Allergies: Coded Allergies: Iodine (Verified Allergy, Mild, 03/22/24) itching 20 years ago Medications Current Medications Medications Dose Ordered Sig/Bossman Route Start Time Stop Time Status Last Admin Dose Admin Aspirin 81 mg DAILY PO 11/14/24 10:00 UNV Atorvastatin Calcium 40 mg HS PO 11/14/24 22:00 UNV Sodium Chloride 10 ml Q8HR IV 11/14/24 06:00 UNV Acetaminophen/ Hydrocodone Bitart 1 tab Q4HP PRN PO 11/14/24 04:45 UNV Ondansetron HCl 4 mg Q4HP PRN IV 11/14/24 04:45 UNV Docusate Sodium 100 mg BIDPRN PRN PO 11/14/24 04:45 UNV Acetaminophen 650 mg Q6HP PRN PO 11/14/24 04:45 UNV Nitroglycerin 0.4 mg Q5MINP PRN SL 11/14/24 04:45 UNV Morphine Sulfate 2 mg Q30M PRN IV 11/14/24 04:45 UNV Exam Vital Signs Vital Signs Date Time Temp Pulse Resp B/P (MAP) Pulse Ox O2 Delivery O2 Flow Rate FiO2 11/14/24 02:15 60 11/14/24 02:00 19 96/55 (69) 11/14/24 01:00 98 11/13/24 22:47 98.5 98.5 11/13/24 22:40 Nasal Cannula* 2 28 General Appearance: Alert, Oriented X3, Cooperative, No acute distress HEENT: Atraumatic, PERRLA, EOMI, Mucous membr. moist/pink Respiratory: Clear to auscultation, Normal air movement Cardiovascular: Regular rate, Normal S1, Normal S2, No murmurs Abdominal: Normal bowel sounds, Soft, No tenderness, No hepatospenomegaly, No masses Extremities: No clubbing, No cyanosis, No edema, Normal pulses, No tenderness /swelling Skin: No rashes, No breakdown, No significant lesion Neuro: Normal speech, Normal tone, Sensation intact, Cranial nerves 3-12 NL, Reflexes 2+, Other (Generalized weakness) Psych/Mental Status: Mental status NL, Mood NL Labs/Xrays Labs Test 11/14/24 02:05 11/14/24 01:53 11/14/24 00:21 11/13/24 23:18 Range/Units Troponin I High Sensitivity 238 *H </=34 ng/L Urine Color Light-yellow Yellow Urine Clarity Clear Clear Urine pH 5.5 5.0-9.0 Urine Specific [place] 1.010 1.001-1.035 Urine Protein Negative Negative Urine Ketones Trace Negative Urine Blood Negative Negative /uL Urine Nitrite Negative Negative Urine Bilirubin Negative Negative Urine Urobilinogen Normal Negative mg/dL Urine Leukocyte Esterase Negative Negative /uL Urine RBC 3 0 - 4 /hpf Urine Microscopic WBC 2 0-5 /HPF Urine Squamous Epithelial Cells Few <5 /hpf Urine Transitional Epithelial Cells Few <2 /hpf Urine Renal Epithelial Cells Few None Seen /hpf Urine Bacteria None seen None Seen /hpf Urine Hyaline Casts Few 0 - 2 /lpf Urine Mucus Few None Seen Urine Glucose Normal Normal mg/dL Prothrombin Time 10.3 9.3-11.8 sec Prothrombin Time INR 0.97 0.9-1.15 Activated Partial Thromboplast Time 23.7 L 24.5-34.5 SEC White Blood Count 3.9 L 4.4-10.8 10^3/uL Red Blood Count 4.10 4.0-5.20 10^6/uL Hemoglobin 12.8 12.2-16.2 g/dL Hematocrit 38.8 36.0-46.0 % Mean Corpuscular Volume 94.7 80.0-100.0 fL Mean Corpuscular Hemoglobin 31.3 28.0-32.0 pg Mean Corpuscular Hemoglobin Concent 33.1 32.0-36.0 g/dL Red Cell Distribution Width 13.0 11.8-14.3 % Platelet Count 190 140-450 10^3/uL Mean Platelet Volume 7.4 6.9-10.8 fL Neutrophils (%) (Auto) 40.3 37.0-80.0 % Lymphocytes (%) (Auto) 39.9 10.0-50.0 % Monocytes (%) (Auto) 10.3 0.0-12.0 % Eosinophils (%) (Auto) 8.5 H 0.0-7.0 % Basophils (%) (Auto) 1.0 0.0-2.0 % Neutrophils # (Auto) 1.6 1.6-8.6 10 ^3/uL Lymphocytes # (Auto) 1.6 0.4-5.4 10 ^3/uL Monocytes # (Auto) 0.4 0-1.3 10 ^3/uL Eosinophils # (Auto) 0.3 0-0.8 10 ^3/uL Basophils # (Auto) 0 0-0.2 10 ^3/uL Nucleated Red Blood Cells 0.0 % Sodium Level 145 136-145 mmol/L Potassium Level 4.6 3.5-5.1 mmol/L Chloride Level 110 H 98-107 mmol/L Carbon Dioxide Level 23 20-31 mmol/L Anion Gap 12 5-15 Blood Urea Nitrogen 19 9-23 mg/dL Creatinine 0.95 0.550-1.02 mg/dL Glomerular Filtration Rate Calc 62 >90 mL/min BUN/Creatinine Ratio 20.0 10.0-20.0 Serum Glucose 106 74-106 mg/dL Calcium Level 9.3 8.7-10.4 mg/dL Magnesium Level 1.8 1.6-2.6 mg/dL Total Bilirubin 0.3 0.2-1.0 mg/dL Aspartate Amino Transferase (AST) 20 13-40 U/L Alanine Aminotransferase (ALT) 20 7-40 U/L Alkaline Phosphatase 51 46-116 U/L B-Type Natriuretic Peptide 85.76 0-100 pg/mL Total Protein 5.5 L 5.7-8.2 g/dL Albumin 3.9 3.2-4.8 g/dL PATIENT: JOJO CROW MACCT: [id number] UNIT: [id number] : 1950 LOC: ER ROOM / BED: / AGE / SEX: 74 / F ADM STATUS: REG ER SERVICE [id number] ORDERING PHYSICIAN: ERROL CHRISTIAN MD PROCEDURE(s): HWOCT - HEAD WITHOUT CONTRAST REASON: syncope ORDER NUMBER(s): [id number], ACCESSION NUMBER(s): [id number] EXAM: CT HEAD WITHOUT CONTRAST INDICATION: syncope TECHNIQUE: CT of the head without intravenous contrast. Radiation Dose Information: CT Dose: CTDI volume is 64.9 mGy. Dose-length product is 1276.5 mGy*cm The dose indicators for CT are the volume Computed Tomography (CT) Dose Index (CTDIvol) and the Dose Length Product (DLP), and are measured in units of mGy and mGy-cm, respectively. These indicators are not patient dose, but values generated from the CT scanner acquisition factors. The report includes radiation exposure data for exposures received during this examination. COMPARISON: None FINDINGS: There is no evidence of acute intracranial hemorrhage, extra-axial collection, mass effect, midline shift, herniation or hydrocephalus. The ventricles, sulci and cisterns are age appropriate. The goncalves-white differentiation is intact. The visualized paranasal sinuses and mastoid air cells are clear. The surrounding soft tissues and osseous structures are unremarkable. IMPRESSION: 1. No acute intracranial abnormality. ORDERING PHYSICIAN: ERROL CHRISTIAN MD PROCEDURE(s): CXRP - CHEST PORTABLE REASON: lo blood press ORDER NUMBER(s): [id number], ACCESSION NUMBER(s): [id number] CHEST RADIOGRAPH Indication: lo blood press Technique: Single frontal view of the chest was obtained Comparison: XY CHEST PORTABLE on DOS: 09/24/24, XY CHEST PORTABLE on DOS: 09/15/24, XY CHEST PORTABLE on DOS: 05/25/24 FINDINGS: Lines and Tubes: None Lungs: Clear Pleura: No effusion. No pneumothorax. Cardiomediastinal contours: Unremarkable Bones: Unremarkable IMPRESSION: Clear lungs. Assessment/Plan Assessment/Plan Syncope and collapse Ground-level fall Generalized weakness Non-STEMI (non-ST elevated myocardial infarction) Hypotension, unspecified Symptomatic bradycardia Plan 1. Admit to telemetry unit 2. Breathing treatment 3. Pain control management 4. Management of fluids and electrolytes 5. Consultation for Cardiology 6. Diagnostic tests head CT 7. DVT prophylaxis-on aspirin 8. Repeat labs CBC, CMP in a.m. 9. Continue with current medical management 10. Treatment plan discussed with patient and RN. Patient verbalized understanding. Plan discussed with: Patient, Other (RN) My Orders Orders - NICOLE FANG DNP Procedure Category Date Status Time Complete Blood Count LAB 11/14/24 Logged 04:42 Comprehensive LAB 11/14/24 Logged Metabolic Panel 04:42 Aspirin Tablet PHA 11/14/24 Logged 10:00 Atorvastatin (Lipitor) PHA 11/14/24 Logged 22:00 * Cardiology Consult CONS 11/14/24 Transmitted 04:42 Admit ADMIT 11/14/24 Transmitted 04:42 Allergies [facility] 11/14/24 In Process 04:42 Code Status CODE 11/14/24 Transmitted 04:42 Sodium Chloride Lock PHA 11/14/24 Logged (Saline Lock Ns) 06:00 Oxygen Per Hour RT 11/14/24 Transmitted 04:42 Hydrocodone-Acet PHA 11/14/24 Logged 5/325mg Tab ([place] 04:45 Ondansetron Hcl PHA 11/14/24 Logged (Zofran) 04:45 Docusate Sodium PHA 11/14/24 Logged Capsule (Colace 04:45 Fall Risk Precautions [facility] 11/14/[address] 04:42 Complete Blood Count LAB 11/15/24 Verified 04:00 Comprehensive LAB 11/15/24 Verified Metabolic Panel 04:00 Cardiac DIET 11/14/24 Transmitted Diet-2gna,Lofat,Lochol Breakfast Condition: Serious DAMIAN 11/14/24 In Process 04:42 Acetaminophen Tablet [facility] 11/14/24 Logged (Tylenol Tablet) 04:45 Sequential DAMIAN 11/14/24 In Process Compression Device Nitroglycerin [facility] 11/14/24 Logged Sublingual (Ntrostat 04:45 Morphine Sulfate [facility] 11/14/24 Logged Injection 04:45 Notify Md Of Changes [facility] 11/14/24 In Process From Base 04:42 Magnetic Prospector For [facility] 11/14/24 In Process 24 Hours 04:42 Emergency Dysrhythmia [facility] 11/14/24 In Process Protocol 04:42 Rhythm Strips Once [facility] 11/14/24 In Process Every Shift 04:42 Oxygen By Nasal RT 11/14/24 Transmitted Cannula 04:42 Problem List: (1) Syncope and collapse (2) Hypotension, unspecified (3) Symptomatic bradycardia (4) Ground-level fall (5) Generalized weakness (6) Non-STEMI (non-ST elevated myocardial infarction) Date of Service: Nov 14, 2024 Billing Provider: NICOLE FANG DNP Common Visit Codes: [id number] INP/OBS CARE (HIGH) NICOLE FANG DNP Nov 14, 2024 04:50
[2024-11-14] MEDS: ENOXAPARIN SOD 80 MG/0.8ML SYRINGE SC ONE (05:30)
[2024-11-14] MEDS: ASPirin-EC 325mg tab PO ONE (05:30)
[2024-11-14] MEDS: SODIUM CHLOR 0.9% PF (SALINE LOCK) 10ML VIAL/SYR IV SCH (06:11)
--- NOTE | 2024-11-14 06:33 | ECG ---
[facility] Test Date: 2024-11-13 Test Time: 22:24:22 Pat Name: JOJO CROW Department: ER Room: 0272T Gender: F Share[employer] Developer: : 1950 Requested By: ERROL CHRISTIAN Order Number: [id number] Reading MD: Perico Robertson Measurements Intervals [place] Rate: 53 P: 22 WV: 145 QRS: 5 QRSD: 104 T: 219 QT: 531 QTc: 499 Interpretive Statements Sinus rhythm Abnormal R-wave progression, early transition Nonspecific T abnormalities, diffuse leads Borderline prolonged QT interval Electronically Signed On 11-15-2024 8:26:24 PST by Perico Robertson Please click the below link to view image of tracing.
[2024-11-14 06:54] LABS: Alanine Aminotransferase 22 U/L (7-40); Alkaline Phosphatase 54 U/L (46-116); Anion Gap 9 (5-15); Aspartate Aminotransferase 21 U/L (13-40); Blood Urea Nitrogen 16 mg/dL (9-23); Calcium 9.1 mg/dL (8.7-10.4); Carbon Dioxide 25 mmol/L (20-31); Glucose 94 mg/dL (74-106); Potassium 4.4 mmol/L (3.5-5.1); Sodium 145 mmol/L (136-145)
[2024-11-14 06:55] LABS: Albumin 4.1 g/dL (3.2-4.8); Bilirubin, Total 0.6 mg/dL (0.2-1.0); Total Protein 5.8 g/dL (5.7-8.2)
[2024-11-14 06:57] LABS: Chloride 111 mmol/L (98-107)
[2024-11-14 09:46] LABS: Basophils # (auto) 0 10 ^3/uL (0-0.2); Basophils % (auto) 0.6 % (0.0-2.0); Eosinophils # (auto) 0.3 10 ^3/uL (0-0.8); Eosinophils % (auto) 5.3 % (0.0-7.0); Hematocrit 37.9 % (36.0-46.0); Hemoglobin 12.8 g/dL (12.2-16.2); Lymphocytes # (auto) 1.1 10 ^3/uL (0.4-5.4); Lymphocytes % (auto) 20.7 % (10.0-50.0); Mean Corpuscular Hemoglobin 31.2 pg (28.0-32.0); Mean Corpuscular Hgb Conc. 33.8 g/dL (32.0-36.0); Mean Corpuscular Volume 92.2 fL (80.0-100.0); Monocytes # (auto) 0.4 10 ^3/uL (0-1.3); Monocytes % (auto) 8.2 % (0.0-12.0); Neutrophils # (auto) 3.5 10 ^3/uL (1.6-8.6); Neutrophils % (auto) 65.2 % (37.0-80.0); Platelet Count (auto) 216 10^3/uL (140-450); Red Cell Distribution Width 13.2 % (11.8-14.3); White Blood Cell 5.4 10^3/uL (4.4-10.8)
[2024-11-14] MEDS: ASPirin 81 mg TAB PO SCH (10:00)
--- NOTE | 2024-11-14 11:14 | DVHINCON2 ---
Date Seen: Nov 14, 2024 Referring Physician ATUL Trevino Reason for Consultation Syncope History of Present Illness This 74-year-old female presents in the ED via EMS for syncope. The patient states symptoms is associated with dizziness leading to the syncopal event this morning. Upon arrival of EMS found patient hypotensive. The patient is currently taking nifedipine and losartan for hypertension. The patient denies c hest pain, shortness of breath, dyspnea, or other acute symptoms prior to syncope. Twelve lead ECG reveals sinus rhythm with prolonged QT. s/p left heart catheterization in 2023. Past medical history of hypertension, aortic stenosis, ascending aortic aneurysm, DVT left leg, COPD, hyperlipidemia, UTI. 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 Social History The patient lives at home, denies smoking, alcohol or illicit drugs abuse. Allergies: Coded Allergies: Iodine (Verified Allergy, Mild, 03/22/24) itching 20 years ago Home Meds Active Scripts Prednisone (Prednisone) 20 Mg Tab, 20 MG PO BID for 5 Days, #10 TAB Prov:IMELDA TOBAR MD 09/15/24 Albuterol Sulfate (Albuterol Sulfate Hfa) 108 Mcg/Act Aer, 108 MCG IN Q4HP PRN for 10 Days, #1 AER Prov:IMELDA TOBAR MD 09/15/24 Albuterol Sulfate (Albuterol Sulfate) 0.083 % Neb, 1 VIAL NEB Q4HPRN, #50 VIAL Prov:IMELDA TOBAR MD 09/15/24 Apixaban Base (ELIQUIS) 5 Mg Tab, 5 MG PO BID, #90 TAB Prov:SRINIVAS BLANCHARD MD 04/01/24 Reported Medications Escitalopram Oxalate (ESCITALOPRAM OXALATE) 10 Mg Tab, 1 TAB PO DAILY 09/24/24 Guaifenesin (Mucus Relief) 600 Mg Tab, 1 TAB PO BID PRN for CHEST CONGESTION for 45 Days, #90 05/26/24 Pantoprazole Sodium Sesquihydr (Protonix) 40 Mg Tab, 1 TAB PO DAILY for 30 Days, #30 05/26/24 Potassium Chloride (K-Tab) 20 Meq Tab, 1 TAB PO DAILY for 90 Days, #90 05/26/24 Benzonatate (Benzonatate) 100 Mg Cap, 1 CAP PO TID 05/26/24 Atorvastatin Calcium (ATORVASTATIN CALCIUM) 40 Mg Tab, 1 TAB PO DAILY 05/26/24 Nifedipine (Nifedipine Er) 30 Mg Tab, 30 MG PO DAILY, TAB 03/20/24 Current Medications Current Medications Medications (Trade) Dose Ordered Sig/Bossman Route PRN Reason Start Time Stop Time Status Last Admin Aspirin 81 mg DAILY PO 11/14/24 10:00 Atorvastatin Calcium (Lipitor) 40 mg HS PO 11/14/24 22:00 Sodium Chloride (Saline Lock Ns) 10 ml Q8HR IV 11/14/24 06:00 11/14/24 06:11 Acetaminophen/ Hydrocodone Bitart ([place] 5/325MG Tab) 1 tab Q4HP PRN PO MODERATE PAIN (4-6 PAIN SCALE) 11/14/24 04:45 Ondansetron HCl (Zofran) 4 mg Q4HP PRN IV NAUSEA / VOMITING 11/14/24 04:45 Docusate Sodium (Colace Capsule) 100 mg BIDPRN PRN PO FOR CONSTIPATION 11/14/24 04:45 Acetaminophen (Tylenol Tablet) 650 mg Q6HP PRN PO PAIN SCALE 1-3 OR TEMP>100.4 11/14/24 04:45 Nitroglycerin (Ntrostat Sublingual) 0.4 mg Q5MINP PRN SL FOR CHEST PAIN 11/14/24 04:45 Morphine Sulfate 2 mg Q30M PRN IV FOR CHEST PAIN 11/14/24 04:45 Review of Systems Constitutional: No symptom reported Ears, Nose, & Throat: No symptom reported Eyes: No symptom reported Neurological: No symptoms reported Pulmonary/Respiratory: No symptom reported Cardiovascular: Syncope, hypotension Gastrointestinal: No symptom reported Genitourinary: No symptom reported Musculoskeletal: No symptom reported Skin: No symptom reported Psychiatric: No symptom reported Endocrine: No symptom reported Hemotologic/Lymphatic: No symptom reported Vital Signs Vital Signs Date Time Temp Pulse Resp B/P (MAP) Pulse Ox O2 Delivery O2 Flow Rate FiO2 11/14/24 10:00 59 18 139/60 (86) 97 11/14/24 08:00 Room Air* 0 21 11/13/24 22:47 98.5 98.5 Physical Exam INITIAL VITAL SIGNS: Reviewed by me GENERAL: Alert and interactive. No acute distress. HEAD: Head is normocephalic and atraumatic. EYES: EOMI, PERRL. No scleral icterus. No conjunctival injection. ENT: Moist mucous membranes. NECK: Supple, No masses, Full range of motion. RESPIRATORY: No tachypnea. Clear breath sounds bilaterally. No wheezing, rales, rhonchi. CV: Regular rate and rhythm. GI/: Active bowel sounds, soft, nondistended, nontender. No guarding. No rebound. No masses. No CVA tenderness. INTEGUMENTARY: Warm and dry. No obvious rashes. NEUROLOGIC: Alert and oriented. Face is symmetric. Speech is normal. Moves all extremities equally. Labs/Diagnostic Data Labs Test 11/14/24 08:57 11/14/24 06:23 11/14/24 02:05 11/14/24 01:53 Range/Units White Blood Count 5.4 # 4.4-10.8 10^3/uL Red Blood Count 4.10 4.0-5.20 10^6/uL Hemoglobin 12.8 12.2-16.2 g/dL Hematocrit 37.9 36.0-46.0 % Mean Corpuscular Volume 92.2 80.0-100.0 fL Mean Corpuscular Hemoglobin 31.2 28.0-32.0 pg Mean Corpuscular Hemoglobin Concent 33.8 32.0-36.0 g/dL Red Cell Distribution Width 13.2 11.8-14.3 % Platelet Count 216 140-450 10^3/uL Mean Platelet Volume 8.0 6.9-10.8 fL Neutrophils (%) (Auto) 65.2 37.0-80.0 % Lymphocytes (%) (Auto) 20.7 10.0-50.0 % Monocytes (%) (Auto) 8.2 0.0-12.0 % Eosinophils (%) (Auto) 5.3 0.0-7.0 % Basophils (%) (Auto) 0.6 0.0-2.0 % Neutrophils # (Auto) 3.5 1.6-8.6 10 ^3/uL Lymphocytes # (Auto) 1.1 0.4-5.4 10 ^3/uL Monocytes # (Auto) 0.4 0-1.3 10 ^3/uL Eosinophils # (Auto) 0.3 0-0.8 10 ^3/uL Basophils # (Auto) 0 0-0.2 10 ^3/uL Nucleated Red Blood Cells 0.0 % Sodium Level 145 136-145 mmol/L Potassium Level 4.4 3.5-5.1 mmol/L Chloride Level 111 H 98-107 mmol/L Carbon Dioxide Level 25 20-31 mmol/L Anion Gap 9 5-15 Blood Urea Nitrogen 16 9-23 mg/dL Creatinine 0.80 0.550-1.02 mg/dL Glomerular Filtration Rate Calc 77 >90 mL/min BUN/Creatinine Ratio 20.0 10.0-20.0 Serum Glucose 94 74-106 mg/dL Calcium Level 9.1 8.7-10.4 mg/dL Total Bilirubin 0.6 0.2-1.0 mg/dL Aspartate Amino Transferase (AST) 21 13-40 U/L Alanine Aminotransferase (ALT) 22 7-40 U/L Alkaline Phosphatase 54 46-116 U/L Total Protein 5.8 5.7-8.2 g/dL Albumin 4.1 3.2-4.8 g/dL Troponin I High Sensitivity 238 *H </=34 ng/L Urine Color Light-yellow Yellow Urine Clarity Clear Clear Urine pH 5.5 5.0-9.0 Urine Specific [place] 1.010 1.001-1.035 Urine Protein Negative Negative Urine Ketones Trace Negative Urine Blood Negative Negative /uL Urine Nitrite Negative Negative Urine Bilirubin Negative Negative Urine Urobilinogen Normal Negative mg/dL Urine Leukocyte Esterase Negative Negative /uL Urine RBC 3 0 - 4 /hpf Urine Microscopic WBC 2 0-5 /HPF Urine Squamous Epithelial Cells Few <5 /hpf Urine Transitional Epithelial Cells Few <2 /hpf Urine Renal Epithelial Cells Few None Seen /hpf Urine Bacteria None seen None Seen /hpf Urine Hyaline Casts Few 0 - 2 /lpf Urine Mucus Few None Seen Urine Glucose Normal Normal mg/dL Test 11/14/24 00:21 11/13/24 23:18 Range/Units Prothrombin Time 10.3 9.3-11.8 sec Prothrombin Time INR 0.97 0.9-1.15 Activated Partial Thromboplast Time 23.7 L 24.5-34.5 SEC Magnesium Level 1.8 1.6-2.6 mg/dL B-Type Natriuretic Peptide 85.76 0-100 pg/mL PROCEDURE(s): CXRP - CHEST PORTABLE REASON: lo blood press ORDER NUMBER(s): [id number], ACCESSION NUMBER(s): [id number] CHEST RADIOGRAPH Indication: lo blood press Technique: Single frontal view of the chest was obtained Comparison: XY CHEST PORTABLE on DOS: 09/24/24, XY CHEST PORTABLE on DOS: , XY CHEST PORTABLE on DOS: 05/25/24 FINDINGS: Lines and Tubes: None Lungs: Clear Pleura: No effusion. No pneumothorax. Cardiomediastinal contours: Unremarkable Bones: Unremarkable IMPRESSION: Clear lungs. Assessment Syncope and collapse likely due to hypotension Hypotension likely drug induced NSTEMI type 2, possible due to above Aortic stenosis Ascending aortic aneurysm COPD Hyperlipidemia Plan/Recommendation Plan/Recommendation (Dr. Lujan ): Syncopal episode likely due to severe hypotension. Twelve lead EKG with no evidence of AV blockage leading to syncope. NSTEMI type 2, likely due to drug-induced hypotensive, Hold antihypertensive medications and continue to monitor BP. Continue with planned /Valve evaluation with her apprentice Dr. Lujan and Esther Mock This medical document was created using an electronic medical record system with voice recognition software and computerized dictation system. Although this document has been carefully reviewed, there might still be some phonetic and typographical errors. Occasional wrong-word or ``sound-alike substitutions may have occurred due to the inherent limitations of voice recognition software. These areas are purely typographical due to imperfections of the software programs and do not reflect any compromise in the patient's medical care. Please read the chart carefully and recognize, using context, where these substitutions have occurred. Plan discussed with: Patient Plan discussed with: Patient NYHA Physical activity limitations: NA Date of Service: Nov 14, 2024 Billing Provider: WAI LUJAN MD Cardiology Common Codes: NOT BILLABLE DOMINGO [employer]RAL [employer] Nov 14, 2024 11:14
[2024-11-14] MEDS: ALBUTEROL SULF 2.5 MG/0.5ML(0.5%) NEB SOLN NEB PRN (21:10)
[2024-11-14] MEDS: ATORVASTATIN 20 MG TAB PO SCH (21:53)
--- NOTE | 2024-11-14 22:36 | DVHPN2 ---
Eyes: No Pain, No Vision change, No Conjunctivae inflammation, No Eyelid inflammation, No Other, No Redness ENT: No Ear pain, No Ear discharge, No Nose pain, No Nose discharge, No Nose congestion, No Mouth pain, No Mouth swelling, No Throat pain, No Throat swelling, No Other Cardiovascular: Chest Pain; No Palpitations, No Orthopnea, No Paroxysmal Noc. Dyspnea, No Edema, No Lt Headedness; Other (Dizzy spells) Respiratory: No Cough, No Dry, No Shortness of breath, No SOB with excertion, No Wheezing, No Hemoptysis, No Pleuritic Pain, No Sputum, No Other Gastrointestinal: No Nausea, No Vomiting, No Abdominal Pain, No Diarrhea, No Constipation, No Melena, No Hematochezia, No Other Genitourinary: No Dysuria, No Frequency, No Incontinence, No Hematuria, No Retention, No Other Musculoskeletal: No other, No neck pain, No shoulder pain, No arm pain, No back pain, No hand pain, No leg pain, No foot pain Skin: No Rash, No Lesions, No Jaundice, No Bruising, No Other Objective Vitals Vital Signs Date Time Temp Pulse Resp B/P (MAP) Pulse Ox O2 Delivery O2 Flow Rate FiO2 11/14/24 21:18 61 20 100 11/14/24 21:18 97.8 2.0 28 97.8 11/14/24 21:10 Nasal Cannula* 11/14/24 21:00 158/75 (102) Intake/Output Intake and Output 11/14/24 07:00 Intake Total 1900 ml Balance 1900 ml IV Total 1900 ml Medications Current Medications Medications Dose Ordered Sig/Bossman Route Start Time Stop Time Status Last Admin Dose Admin Aspirin 81 mg DAILY PO 11/14/24 10:00 11/14/24 10:00 81 MG Atorvastatin Calcium 40 mg HS PO 11/14/24 22:00 11/14/24 21:53 40 MG Sodium Chloride 10 ml Q8HR IV 11/14/24 06:00 11/14/24 21:53 10 ML Acetaminophen/ Hydrocodone Bitart 1 tab Q4HP PRN PO 11/14/24 04:45 Ondansetron HCl 4 mg Q4HP PRN IV 11/14/24 04:45 Docusate Sodium 100 mg BIDPRN PRN PO 11/14/24 04:45 Acetaminophen 650 mg Q6HP PRN PO 11/14/24 04:45 Nitroglycerin 0.4 mg Q5MINP PRN SL 11/14/24 04:45 Morphine Sulfate 2 mg Q30M PRN IV 11/14/24 04:45 Albuterol 2.5 mg Q6HPRN PRN NEB 11/14/24 20:00 11/14/24 21:10 2.5 MG Laboratory Results Laboratory Tests 11/14/24 06:23 11/14/24 08:57 Chemistry Test 11/13/24 23:18 11/14/24 06:23 Albumin 3.9 g/dL (3.2-4.8) 4.1 g/dL (3.2-4.8) Calcium Level 9.3 mg/dL (8.7-10.4) 9.1 mg/dL (8.7-10.4) Magnesium Level 1.8 mg/dL (1.6-2.6) Total Protein 5.5 g/dL (5.7-8.2) L 5.8 g/dL (5.7-8.2) Coagulation Test 11/14/24 00:21 Prothrombin Time 10.3 sec (9.3-11.8) Prothrombin Time INR 0.97 (0.9-1.15) Activated Partial Thromboplast Time 23.7 SEC (24.5-34.5) L Cardiac Markers Test 11/13/24 23:18 B-Type Natriuretic Peptide 85.76 pg/mL (0-100) LFT Test 11/13/24 23:18 11/14/24 06:23 Alanine Aminotransferase (ALT) 20 U/L (7-40) 22 U/L (7-40) Alkaline Phosphatase 51 U/L (46-116) 54 U/L (46-116) Aspartate Amino Transferase (AST) 20 U/L (13-40) 21 U/L (13-40) Total Bilirubin 0.3 mg/dL (0.2-1.0) 0.6 mg/dL (0.2-1.0) Urinalysis Test 11/14/24 01:53 Urine Color Light-yellow (Yellow) Urine Clarity Clear (Clear) Urine pH 5.5 (5.0-9.0) Urine Specific [place] 1.010 (1.001-1.035) Urine Protein Negative (Negative) Urine Ketones Trace (Negative) Urine Blood Negative /uL (Negative) Urine Nitrite Negative (Negative) Urine Bilirubin Negative (Negative) Urine Urobilinogen Normal mg/dL (Negative) Urine Leukocyte Esterase Negative /uL (Negative) Urine RBC 3 /hpf (0 - 4) Urine Microscopic WBC 2 /HPF (0-5) Urine Squamous Epithelial Cells Few /hpf (<5) Urine Transitional Epithelial Cells Few /hpf (<2) Urine Renal Epithelial Cells Few /hpf (None Seen) Urine Bacteria None seen /hpf (None Seen) Urine Hyaline Casts Few /lpf (0 - 2) Urine Mucus Few (None Seen) Urine Glucose Normal mg/dL (Normal) ANGELA MALDONADO MD Nov 14, 2024 22:36
[2024-11-15] VITALS (21 sets, daily range): BP systolic 142–185; BP diastolic 59–91; PULSE 52–152; RESP 16–24; TEMP 97.6–97.9; O2SAT 88–100
[2024-11-15] MEDS: ALBUTEROL SULF 2.5 MG/0.5ML(0.5%) NEB SOLN NEB SCH (06:50)
[2024-11-15] MEDS: BUDESONIDE (INHALATION) 0.5 MG/2 ML NEB NEB SCH (06:50)
[2024-11-15] MEDS: IPRATROPIUM BROM 0.5 MG/2.5ML INH SOL NEB SCH (06:50)
[2024-11-15 07:26] LABS: Alanine Aminotransferase 21 U/L (7-40); Albumin 4.2 g/dL (3.2-4.8); Alkaline Phosphatase 54 U/L (46-116); Anion Gap 9 (5-15); Aspartate Aminotransferase 19 U/L (13-40); BUN/Creatinine Ratio 15.5 (10.0-20.0); Blood Urea Nitrogen 11 mg/dL (9-23); Calcium 9.6 mg/dL (8.7-10.4); Carbon Dioxide 25 mmol/L (20-31); Glucose 103 mg/dL (74-106); Potassium 3.9 mmol/L (3.5-5.1); Sodium 143 mmol/L (136-145)
[2024-11-15 07:27] LABS: Chloride 109 mmol/L (98-107); Total Protein 6.2 g/dL (5.7-8.2)
[2024-11-15 07:30] LABS: Basophils # (auto) 0 10 ^3/uL (0-0.2); Basophils % (auto) 0.8 % (0.0-2.0); Eosinophils # (auto) 0.3 10 ^3/uL (0-0.8); Eosinophils % (auto) 6.5 % (0.0-7.0); Hematocrit 41.6 % (36.0-46.0); Hemoglobin 13.9 g/dL (12.2-16.2); Lymphocytes # (auto) 1.3 10 ^3/uL (0.4-5.4); Lymphocytes % (auto) 29.4 % (10.0-50.0); Mean Corpuscular Hemoglobin 31.3 pg (28.0-32.0); Mean Corpuscular Hgb Conc. 33.4 g/dL (32.0-36.0); Mean Corpuscular Volume 93.6 fL (80.0-100.0); Monocytes # (auto) 0.4 10 ^3/uL (0-1.3); Monocytes % (auto) 8.4 % (0.0-12.0); Neutrophils # (auto) 2.4 10 ^3/uL (1.6-8.6); Neutrophils % (auto) 54.9 % (37.0-80.0); Platelet Count (auto) 212 10^3/uL (140-450); Red Blood Cells 4.45 10^6/uL (4.0-5.20); Red Cell Distribution Width 13.1 % (11.8-14.3); White Blood Cell 4.4 10^3/uL (4.4-10.8)
--- NOTE | 2024-11-15 11:42 | DVHPN2 ---
Subjective The patient seen and examined at bedside. Tired today Reviewed: Care Plan, H&P, Labs, Medications, Previous Orders Changes from previous H/P or p: No Changes Eyes: No Pain, No Vision change, No Conjunctivae inflammation, No Eyelid inflammation, No Other, No Redness ENT: No Ear pain, No Ear discharge, No Nose pain, No Nose discharge, No Nose congestion, No Mouth pain, No Mouth swelling, No Throat pain, No Throat swelling, No Other Cardiovascular: Chest Pain; No Palpitations, No Orthopnea, No Paroxysmal Noc. Dyspnea, No Edema, No Lt Headedness; Other (Dizzy spells) Respiratory: No Cough, No Dry, No Shortness of breath, No SOB with excertion, No Wheezing, No Hemoptysis, No Pleuritic Pain, No Sputum, No Other Gastrointestinal: No Nausea, No Vomiting, No Abdominal Pain, No Diarrhea, No Constipation, No Melena, No Hematochezia, No Other Genitourinary: No Dysuria, No Frequency, No Incontinence, No Hematuria, No Retention, No Other Musculoskeletal: No other, No neck pain, No shoulder pain, No arm pain, No back pain, No hand pain, No leg pain, No foot pain Skin: No Rash, No Lesions, No Jaundice, No Bruising, No Other Objective Vitals Vital Signs Date Time Temp Pulse Resp B/P (MAP) Pulse Ox O2 Delivery O2 Flow Rate FiO2 11/15/24 10:06 72 18 99 11/15/24 10:00 Nasal Cannula 2.0 11/15/24 10:00 28 11/15/24 09:00 97.8 152/72 (98) 97.8 Intake/Output Intake and Output 11/15/24 07:00 Intake Total 1925 ml Output Total 2 ml Balance 1923 ml Intake Oral 1825 ml IV Total 100 ml Output Stool Total 2 ml # Voids 5 General Appearance: Alert, Oriented X3, Cooperative, No acute distress HEENT: Atraumatic, PERRLA, EOMI, Mucous membr. moist/pink Neck: Supple Lungs: Normal air movement, Other (Bilateral wheezing and rhonchi) Cardiovascular: Regular rate, Normal S1, Normal S2, No murmurs, Gallops, Rubs Neuro: Cranial nerves 3-12 NL Psych/Mental Status: Mental status NL Medications Current Medications Medications Dose Ordered Sig/Bossman Route Start Time Stop Time Status Last Admin Dose Admin Aspirin 81 mg DAILY PO 11/14/24 10:00 11/14/24 10:00 81 MG Atorvastatin Calcium 40 mg HS PO 11/14/24 22:00 11/14/24 21:53 40 MG Sodium Chloride 10 ml Q8HR IV 11/14/24 06:00 11/15/24 06:09 10 ML Acetaminophen/ Hydrocodone Bitart 1 tab Q4HP PRN PO 11/14/24 04:45 Ondansetron HCl 4 mg Q4HP PRN IV 11/14/24 04:45 Docusate Sodium 100 mg BIDPRN PRN PO 11/14/24 04:45 Acetaminophen 650 mg Q6HP PRN PO 11/14/24 04:45 Nitroglycerin 0.4 mg Q5MINP PRN SL 11/14/24 04:45 Morphine Sulfate 2 mg Q30M PRN IV 11/14/24 04:45 Albuterol 2.5 mg Q6HPRN PRN NEB 11/14/24 20:00 11/15/24 04:08 2.5 MG Albuterol 2.5 mg Q4HR NEB 11/15/24 06:00 11/15/24 10:00 2.5 MG Ipratropium [place] 0.5 mg Q4HR NEB 11/15/24 06:00 11/15/24 10:00 0.5 MG Budesonide 0.5 mg BID NEB 11/15/24 10:00 11/15/24 06:50 0.5 MG Laboratory Results Laboratory Tests 11/15/24 06:39 Chemistry Test 11/15/24 06:39 Albumin 4.2 g/dL (3.2-4.8) Calcium Level 9.6 mg/dL (8.7-10.4) Total Protein 6.2 g/dL (5.7-8.2) LFT Test 11/15/24 06:39 Alanine Aminotransferase (ALT) 21 U/L (7-40) Alkaline Phosphatase 54 U/L (46-116) Aspartate Amino Transferase (AST) 19 U/L (13-40) Total Bilirubin 1.0 mg/dL (0.2-1.0) Urinalysis Test 11/14/24 01:53 Urine Color Light-yellow (Yellow) Urine Clarity Clear (Clear) Urine pH 5.5 (5.0-9.0) Urine Specific [place] 1.010 (1.001-1.035) Urine Protein Negative (Negative) Urine Ketones Trace (Negative) Urine Blood Negative /uL (Negative) Urine Nitrite Negative (Negative) Urine Bilirubin Negative (Negative) Urine Urobilinogen Normal mg/dL (Negative) Urine Leukocyte Esterase Negative /uL (Negative) Urine RBC 3 /hpf (0 - 4) Urine Microscopic WBC 2 /HPF (0-5) Urine Squamous Epithelial Cells Few /hpf (<5) Urine Transitional Epithelial Cells Few /hpf (<2) Urine Renal Epithelial Cells Few /hpf (None Seen) Urine Bacteria None seen /hpf (None Seen) Urine Hyaline Casts Few /lpf (0 - 2) Urine Mucus Few (None Seen) Urine Glucose Normal mg/dL (Normal) Assessment/Plan Assessment/Plan Syncope and collapse Ground-level fall Generalized weakness Non-STEMI (non-ST elevated myocardial infarction) Hypotension, unspecified Symptomatic bradycardia Pneumonia, possible Gram-positive pneumonia Continuing current management. Continuing with pain medication. We will monitor blood pressure. Right now her blood pressure is elevated. We will get Physical therapy to get the patient out of bed and ambulate We will start the patient on Rocephin 1 g IV q.day This medical document was created using an electronic medical record system with M[employer] direct computerized dictation system. Although this document has been carefully reviewed, there may still be some phonetic and typographical errors. These areas are purely typographical due to imperfections of the software programs, and do not reflect any compromise in the patient's medical care. Plan discussed with: Patient Date of Service: Nov 15, 2024 Billing Provider: ANGELA MALDONADO MD Common Visit Codes: [id number] INP/OBS CARE(HIGH) ANGELA MALDONADO MD Nov 15, 2024 11:41
--- NOTE | 2024-11-15 13:30 | DVHPN2 ---
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 Denies any cardiac symptoms at time of assessment Objective vital signs Vital Sign Date Time Temp Pulse Resp B/P (MAP) Pulse Ox O2 Delivery O2 Flow Rate FiO2 11/15/24 10:06 72 18 99 11/15/24 10:00 Nasal Cannula 2.0 11/15/24 10:00 28 11/15/24 09:00 97.8 152/72 (98) 97.8 Total Intake and Output 11/14/24 11/14/24 11/15/24 15:00 23:00 07:00 Intake Total 210 ml 810 ml 905 ml Output Total 2 ml Balance 210 ml 808 ml 905 ml medications Current Medications Medications Dose Ordered Sig/Bossman Route Start Time Stop Time Status Last Admin Dose Admin Aspirin 81 mg DAILY PO 11/14/24 10:00 11/14/24 10:00 81 MG Atorvastatin Calcium 40 mg HS PO 11/14/24 22:00 11/14/24 21:53 40 MG Sodium Chloride 10 ml Q8HR IV 11/14/24 06:00 11/15/24 06:09 10 ML Acetaminophen/ Hydrocodone Bitart 1 tab Q4HP PRN PO 11/14/24 04:45 Ondansetron HCl 4 mg Q4HP PRN IV 11/14/24 04:45 Docusate Sodium 100 mg BIDPRN PRN PO 11/14/24 04:45 Acetaminophen 650 mg Q6HP PRN PO 11/14/24 04:45 Nitroglycerin 0.4 mg Q5MINP PRN SL 11/14/24 04:45 Morphine Sulfate 2 mg Q30M PRN IV 11/14/24 04:45 Albuterol 2.5 mg Q6HPRN PRN NEB 11/14/24 20:00 11/15/24 04:08 2.5 MG Albuterol 2.5 mg Q4HR NEB 11/15/24 06:00 11/15/24 10:00 2.5 MG Ipratropium [place] 0.5 mg Q4HR NEB 11/15/24 06:00 11/15/24 10:00 0.5 MG Budesonide 0.5 mg BID NEB 11/15/24 10:00 11/15/24 06:50 0.5 MG Ceftriaxone Sodium 50 ml @ 100 mls/hr DAILY@09 IV 11/16/24 09:00 Azithromycin 250 ml @ 125 mls/hr DAILY IV 11/15/24 22:00 UNV Examination: GENERAL:Normal, LUNGS:Normal, CVS:Normal, NEURO:Normal laboratory and microbiology Laboratory Tests 11/15/24 06:39 Test 11/15/24 06:39 Range/Units Serum Glucose 103 74-106 mg/dL Problem List/Assessment/Plan Problem List/Assessment/Plan Syncope, rule out cardiac etiology Hypotension NSTEMI, likely type II Severe aortic stenosis Ascending aortic aneurysm Hyperlipidemia COPD Plan/recommendations (Dr. Lujan): Case reviewed and discussed with . Previous transthoracic echocardiogram from 09/25/2024 reveals EF 65% with severe aortic stenosis. The patient sees chair car driver in the outpatient setting. She has been referred to [facility] for valvular workup. She reports that she was last seen last month at [facility] and was told that at this time she does not need a valve replacement. There is no further inpatient cardiac workup indicated at this time. The patient will follow up with and [facility] chair car driver as outpatient basis. Thank you for allowing us to care for this patient. Please call with any questions or concerns. This medical document was created using an electronic medical record system with voice recognition software and computerized dictation system. Although this document has been carefully reviewed, there might still be some phonetic and typographical errors. Occasional wrong-word or ``sound-alike substitutions may have occurred due to the inherent limitations of voice recognition software. These areas are purely typographical due to imperfections of the software programs and do not reflect any compromise in the patient's medical care. Please read the chart carefully and recognize, using context, where these substitutions have occurred. 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
[2024-11-15] MEDS: LORazepam 2MG/ML-1ML VIAL IV PRN (18:40)
[2024-11-15] MEDS: cefTRIAXone 1GM/50ML D5W 50 ML IV ONE (21:41)
[2024-11-15 21:54] LABS: COVID19 ANTIGEN SOFIA FIA NEGATIVE (NEGATIVE)
[2024-11-15] MEDS ORDERED: AZITHROMYCIN 500MG/ 250ML 250 ML IV SCH (22:00)
[2024-11-16] VITALS (24 sets, daily range): BP systolic 121–163; BP diastolic 50–83; PULSE 63–92; RESP 14–24; TEMP 97.4–98; O2SAT 91–100
[2024-11-16] MEDS: ALBUTEROL SULF 2.5 MG/0.5ML(0.5%) NEB SOLN NEB ONE (08:30)
[2024-11-16] MEDS: cefTRIAXone 1GM/50ML D5W 50 ML IV SCH (09:24)
[2024-11-16] MEDS: methylPREDNISolone SOD SUCC 40 MG/ML VL IV SCH (09:24)
--- NOTE | 2024-11-16 10:44 | DVHPN2 ---
Subjective The patient seen and examined at bedside. Tired today. Complains of shortness of breath and wheezing all night. Reviewed: Care Plan, H&P, Labs, Medications, Previous Orders Changes from previous H/P or p: No Changes Eyes: No Pain, No Vision change, No Conjunctivae inflammation, No Eyelid inflammation, No Other, No Redness ENT: No Ear pain, No Ear discharge, No Nose pain, No Nose discharge, No Nose congestion, No Mouth pain, No Mouth swelling, No Throat pain, No Throat swelling, No Other Cardiovascular: Chest Pain; No Palpitations, No Orthopnea, No Paroxysmal Noc. Dyspnea, No Edema, No Lt Headedness; Other (Dizzy spells) Respiratory: No Cough, No Dry, No Shortness of breath, No SOB with excertion, No Wheezing, No Hemoptysis, No Pleuritic Pain, No Sputum, No Other Gastrointestinal: No Nausea, No Vomiting, No Abdominal Pain, No Diarrhea, No Constipation, No Melena, No Hematochezia, No Other Genitourinary: No Dysuria, No Frequency, No Incontinence, No Hematuria, No Retention, No Other Musculoskeletal: No other, No neck pain, No shoulder pain, No arm pain, No back pain, No hand pain, No leg pain, No foot pain Skin: No Rash, No Lesions, No Jaundice, No Bruising, No Other Objective Vitals Vital Signs Date Time Temp Pulse Resp B/P (MAP) Pulse Ox O2 Delivery O2 Flow Rate FiO2 11/16/24 10:29 78 20 95 11/16/24 10:00 Nasal Cannula 2.0 11/16/24 10:00 28 11/16/24 09:00 97.7 150/74 (99) 97.7 Intake/Output Intake and Output 11/16/24 07:00 Intake Total 1545 ml Output Total 3 ml Balance 1542 ml Intake Oral 1545 ml Output Urine Total 2 ml Stool Total 1 ml # Voids 3 General Appearance: Alert, Oriented X3, Cooperative, No acute distress HEENT: Atraumatic, PERRLA, EOMI, Mucous membr. moist/pink Neck: Supple Lungs: Normal air movement, Other (Bilateral wheezing and rhonchi) Cardiovascular: Regular rate, Normal S1, Normal S2, No murmurs, Gallops, Rubs Neuro: Cranial nerves 3-12 NL Psych/Mental Status: Mental status NL Medications Current Medications Medications Dose Ordered Sig/Bossman Route Start Time Stop Time Status Last Admin Dose Admin Aspirin 81 mg DAILY PO 11/14/24 10:00 11/16/24 09:24 81 MG Atorvastatin Calcium 40 mg HS PO 11/14/24 22:00 11/14/24 21:53 40 MG Sodium Chloride 10 ml Q8HR IV 11/14/24 06:00 11/16/24 05:32 10 ML Acetaminophen/ Hydrocodone Bitart 1 tab Q4HP PRN PO 11/14/24 04:45 Ondansetron HCl 4 mg Q4HP PRN IV 11/14/24 04:45 Docusate Sodium 100 mg BIDPRN PRN PO 11/14/24 04:45 Acetaminophen 650 mg Q6HP PRN PO 11/14/24 04:45 Nitroglycerin 0.4 mg Q5MINP PRN SL 11/14/24 04:45 Morphine Sulfate 2 mg Q30M PRN IV 11/14/24 04:45 Albuterol 2.5 mg Q6HPRN PRN NEB 11/14/24 20:00 11/15/24 04:08 2.5 MG Albuterol 2.5 mg Q4HR NEB 11/15/24 06:00 11/16/24 10:29 2.5 MG Ipratropium [place] 0.5 mg Q4HR NEB 11/15/24 06:00 11/16/24 10:29 0.5 MG Budesonide 0.5 mg BID NEB 11/15/24 10:00 11/16/24 10:29 0.5 MG Ceftriaxone Sodium 50 ml @ 100 mls/hr DAILY@09 IV 11/16/24 09:00 11/16/24 09:24 100 MLS/HR Lorazepam 1 mg Q8HP PRN IV 11/15/24 18:45 11/16/24 05:33 1 MG Methylprednisolone Sodium Succinate 40 mg Q6H IV 11/16/24 10:00 11/16/24 09:24 40 MG Laboratory Results Laboratory Tests 11/15/24 06:39 Urinalysis Test 11/14/24 01:53 Urine Color Light-yellow (Yellow) Urine Clarity Clear (Clear) Urine pH 5.5 (5.0-9.0) Urine Specific [place] 1.010 (1.001-1.035) Urine Protein Negative (Negative) Urine Ketones Trace (Negative) Urine Blood Negative /uL (Negative) Urine Nitrite Negative (Negative) Urine Bilirubin Negative (Negative) Urine Urobilinogen Normal mg/dL (Negative) Urine Leukocyte Esterase Negative /uL (Negative) Urine RBC 3 /hpf (0 - 4) Urine Microscopic WBC 2 /HPF (0-5) Urine Squamous Epithelial Cells Few /hpf (<5) Urine Transitional Epithelial Cells Few /hpf (<2) Urine Renal Epithelial Cells Few /hpf (None Seen) Urine Bacteria None seen /hpf (None Seen) Urine Hyaline Casts Few /lpf (0 - 2) Urine Mucus Few (None Seen) Urine Glucose Normal mg/dL (Normal) Labs and/or images reviewed: Labs reviewed by me Assessment/Plan Assessment/Plan Syncope and collapse Ground-level fall Generalized weakness Non-STEMI (non-ST elevated myocardial infarction) Hypotension, unspecified Symptomatic bradycardia Pneumonia, possible Gram-positive pneumonia Continuing current management. Continuing with pain medication. We will monitor blood pressure. Right now her blood pressure is elevated. We will get Physical therapy to get the patient out of bed and ambulate Continue the patient on Rocephin 1 g IV q.day Will continue IV solumedrol Pulmonology consult This medical document was created using an electronic medical record system with [employer] direct computerized dictation system. Although this document has been carefully reviewed, there may still be some phonetic and typographical errors. These areas are purely typographical due to imperfections of the software programs, and do not reflect any compromise in the patient's medical care. Plan discussed with: Patient My Orders Orders - ANGELA MALDONADO MD Procedure Category Date Status Time Pt Request For Service PT 11/15/24 Logged 11:42 Ceftriaxone 1gm/50ml PHA 11/16/24 In Process D5w (Rocephin) 09:00 * Floral Merchandiser CONS 11/15/24 Transmitted Consult Date of Service: Nov 16, 2024 Billing Provider: ANGELA MALDONADO MD Common Visit Codes: [id number] INP/OBS CARE(HIGH) ANGELA MALDONADO MD Nov 16, 2024 10:44
--- NOTE | 2024-11-16 15:14 | DVHPN2 ---
Progress Note Date Seen: Nov 16, 2024 Medical Necessity Reason Pt with a Central, PICC or Fol: No Subjective Patient reports: Feels better Other Systems: pt anxious last night Objective vital signs Vital Sign Date Time Temp Pulse Resp B/P (MAP) Pulse Ox O2 Delivery O2 Flow Rate FiO2 11/16/24 14:28 88 20 100 11/16/24 14:24 Nasal Cannula* 2 28 11/16/24 09:00 97.7 150/74 (99) 97.7 Total Intake and Output 11/15/24 11/15/24 11/16/24 15:00 23:00 07:00 Intake Total 360 ml 860 ml 325 ml Output Total 1 ml 2 ml Balance 360 ml 859 ml 323 ml medications Current Medications Medications Dose Ordered Sig/Bossman Route Start Time Stop Time Status Last Admin Dose Admin Aspirin 81 mg DAILY PO 11/14/24 10:00 11/16/24 09:24 81 MG Atorvastatin Calcium 40 mg HS PO 11/14/24 22:00 11/14/24 21:53 40 MG Sodium Chloride 10 ml Q8HR IV 11/14/24 06:00 11/16/24 05:32 10 ML Acetaminophen/ Hydrocodone Bitart 1 tab Q4HP PRN PO 11/14/24 04:45 Ondansetron HCl 4 mg Q4HP PRN IV 11/14/24 04:45 Docusate Sodium 100 mg BIDPRN PRN PO 11/14/24 04:45 Acetaminophen 650 mg Q6HP PRN PO 11/14/24 04:45 Nitroglycerin 0.4 mg Q5MINP PRN SL 11/14/24 04:45 Morphine Sulfate 2 mg Q30M PRN IV 11/14/24 04:45 Albuterol 2.5 mg Q6HPRN PRN NEB 11/14/24 20:00 11/15/24 04:08 2.5 MG Albuterol 2.5 mg Q4HR NEB 11/15/24 06:00 11/16/24 14:19 2.5 MG Ipratropium [place] 0.5 mg Q4HR NEB 11/15/24 06:00 11/16/24 14:19 0.5 MG Budesonide 0.5 mg BID NEB 11/15/24 10:00 11/16/24 10:29 0.5 MG Ceftriaxone Sodium 50 ml @ 100 mls/hr DAILY@09 IV 11/16/24 09:00 11/16/24 09:24 100 MLS/HR Lorazepam 1 mg Q8HP PRN IV 11/15/24 18:45 11/16/24 14:22 1 MG Methylprednisolone Sodium Succinate 40 mg Q6H IV 11/16/24 10:00 11/16/24 09:24 40 MG Examination: GENERAL:Abnormal, HEENT:Abnormal, LUNGS:Abnormal, CVS:Abnormal, ABDOMEN:Abnormal laboratory and microbiology Laboratory Tests 11/15/24 06:39 Test 11/15/24 06:39 Range/Units Serum Glucose 103 74-106 mg/dL Problem List/Assessment/Plan Problem List/Assessment/Plan detention patient of mine, getting eval for TAVR with [facility] and sees me in clinc 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
--- NOTE | 2024-11-16 22:22 | DVHINCON2 ---
Date of service: Nov 15, 2024 Referring Physician Angela Chino MD Reason for Consultation Dyspnea, pneumonia History of Present Illness A 74-year-old woman with past medical history of COPD, OR, hyperlipidemia, hypertension and UTIs, who presented to ED on 11/13/24 for evaluation of syncopal episode. Patient was noted to be hypotensive with blood pressure 52/31, bradycardia rate in the 40s, and was given atropine 1 mg, 500 cc of IV fluid by paramedics. Blood pressure improved to 110/53, heart rate 55 [address] route to our facility ED. ED workup showing WBC 3.9, platelets 190, sodium 145, potassium 4.6, BUN 19, creatinine 0.95, GFR 62, glucose 106, troponin 226, BNP 85.76. BP was 95/55, heart rate 60, temperature 98.5 F, O2 saturation 98% on oxygen. Head CT showed no acute intracranial abnormality. Patient was admitted for further care and pulmonary consultation is requested for evaluation and management of dyspnea, pneumonia. Review of Systems: 14-point review of systems negative unless otherwise noted above. Past Medical History: COPD, OR, hyperlipidemia, hypertension and UTIs Past Surgical History: None Medications: Reviewed. Allergies: Iodine. Family History: Alzheimer's disease, prostate cancer. Social History: Nonsmoker. No alcohol or illicit drug use. Family History: Alzheimer's disease FH: dementia G8 MOTHER Prostate carcinoma G8 FATHER Allergies: Coded Allergies: Iodine (Verified Allergy, Mild, 03/22/24) itching 20 years ago Home Meds Active Scripts Azithromycin (ZITHROMAX TABLET) 250 Mg Tb, 250 MG PO DAILY, #6 TAB Prov:ANGELA CHINO MD 11/17/24 Lorazepam (Ativan) 0.5 Mg Tab, 1 TAB PO BID PRN, #20 TAB Prov:ANGELA CHINO MD 11/17/24 Albuterol Sulfate (Albuterol Sulfate Hfa) 108 Mcg/Act Aer, 108 MCG IN Q4HP PRN for 10 Days, #1 AER Prov:IMELDA TOBAR MD 09/15/24 Albuterol Sulfate (Albuterol Sulfate) 0.083 % Neb, 1 VIAL NEB Q4HPRN, #50 VIAL Prov:IMELDA TOBAR MD 09/15/24 Apixaban Base (ELIQUIS) 5 Mg Tab, 5 MG PO BID, #90 TAB Prov:SANTOSRINIVAS MD 04/01/24 Reported Medications Losartan Potassium (Losartan Potassium) 25 Mg Tab, 1 TAB PO DAILY for 30 Days, #30 11/15/24 Escitalopram Oxalate (ESCITALOPRAM OXALATE) 10 Mg Tab, 1 TAB PO DAILY 09/24/24 Pantoprazole Sodium Sesquihydr (Protonix) 40 Mg Tab, 1 TAB PO DAILY for 30 Days, #30 05/26/24 Potassium Chloride (K-Tab) 20 Meq Tab, 1 TAB PO DAILY for 90 Days, #90 05/26/24 Benzonatate (Benzonatate) 100 Mg Cap, 1 CAP PO TID 05/26/24 Atorvastatin Calcium (ATORVASTATIN CALCIUM) 40 Mg Tab, 1 TAB PO DAILY 05/26/24 Nifedipine (Nifedipine Er) 30 Mg Tab, 1 TAB PO DAILY for 30 Days, #30 03/20/24 Current Medications Current Medications Medications (Trade) Dose Ordered Sig/Bossman Route PRN Reason Start Time Stop Time Status Last Admin Ceftriaxone Sodium 50 ml @ 100 mls/hr DAILY@09 IV 11/16/24 09:00 11/16/24 09:24 Methylprednisolone Sodium Succinate (Solu Medrol) 40 mg Q6H IV 11/16/24 10:00 11/16/24 21:42 Vital Signs Vital Signs Date Time Temp Pulse Resp B/P (MAP) Pulse Ox O2 Delivery O2 Flow Rate FiO2 11/16/24 21:55 79 14 99 11/16/24 21:47 Nasal Cannula 2.0 11/16/24 21:47 28 11/16/24 21:00 97.4 134/83 (100) 97.4 Physical Exam Gen.: Patient lying in bed in no apparent distress. On supplemental oxygen. Head: Normocephalic, atraumatic. Eyes: EOMI/PERRLA. Ears: Normal hearing. Normal anatomy. Neck/trachea: Trachea midline, supple. Nose: Normal external anatomy. Mouth: Moist mucous membranes. Chest: Decreased air entry bilaterally. No wheezing or rhonchi. Cardiovascular: Positive S1, positive S2. Regular rate and rhythm. Abdomen: Positive bowel sounds in all 4 quadrants. Soft, non-tender, non- distended. : Deferred. Rectal: Deferred. Skin: Warm, dry. Intact. Extremities: 2+ radial pulses bilaterally. No lower extremity edema. Neuro: Awake, alert, oriented x3. No gross motor or sensory deficits. Cranial ne rves II through XII intact. Gait not assessed. Labs/Diagnostic Data Labs Test 11/15/24 20:06 11/15/24 06:39 11/14/24 02:05 11/14/24 01:53 Range/Units SARS-CoV-2 Antigen (Rapid) Negative NEGATIVE White Blood Count 4.4 4.4-10.8 10^3/uL Red Blood Count 4.45 4.0-5.20 10^6/uL Hemoglobin 13.9 12.2-16.2 g/dL Hematocrit 41.6 36.0-46.0 % Mean Corpuscular Volume 93.6 80.0-100.0 fL Mean Corpuscular Hemoglobin 31.3 28.0-32.0 pg Mean Corpuscular Hemoglobin Concent 33.4 32.0-36.0 g/dL Red Cell Distribution Width 13.1 11.8-14.3 % Platelet Count 212 140-450 10^3/uL Mean Platelet Volume 7.5 6.9-10.8 fL Neutrophils (%) (Auto) 54.9 37.0-80.0 % Lymphocytes (%) (Auto) 29.4 10.0-50.0 % Monocytes (%) (Auto) 8.4 0.0-12.0 % Eosinophils (%) (Auto) 6.5 0.0-7.0 % Basophils (%) (Auto) 0.8 0.0-2.0 % Neutrophils # (Auto) 2.4 1.6-8.6 10 ^3/uL Lymphocytes # (Auto) 1.3 0.4-5.4 10 ^3/uL Monocytes # (Auto) 0.4 0-1.3 10 ^3/uL Eosinophils # (Auto) 0.3 0-0.8 10 ^3/uL Basophils # (Auto) 0 0-0.2 10 ^3/uL Nucleated Red Blood Cells 0.0 % Sodium Level 143 136-145 mmol/L Potassium Level 3.9 3.5-5.1 mmol/L Chloride Level 109 H 98-107 mmol/L Carbon Dioxide Level 25 20-31 mmol/L Anion Gap 9 5-15 Blood Urea Nitrogen 11 9-23 mg/dL Creatinine 0.71 0.550-1.02 mg/dL Glomerular Filtration Rate Calc 89 >90 mL/min BUN/Creatinine Ratio 15.5 10.0-20.0 Serum Glucose 103 74-106 mg/dL Calcium Level 9.6 8.7-10.4 mg/dL Total Bilirubin 1.0 0.2-1.0 mg/dL Aspartate Amino Transferase (AST) 19 13-40 U/L Alanine Aminotransferase (ALT) 21 7-40 U/L Alkaline Phosphatase 54 46-116 U/L Total Protein 6.2 5.7-8.2 g/dL Albumin 4.2 3.2-4.8 g/dL Troponin I High Sensitivity 238 *H </=34 ng/L Urine Color Light-yellow Yellow Urine Clarity Clear Clear Urine pH 5.5 5.0-9.0 Urine Specific [place] 1.010 1.001-1.035 Urine Protein Negative Negative Urine Ketones Trace Negative Urine Blood Negative Negative /uL Urine Nitrite Negative Negative Urine Bilirubin Negative Negative Urine Urobilinogen Normal Negative mg/dL Urine Leukocyte Esterase Negative Negative /uL Urine RBC 3 0 - 4 /hpf Urine Microscopic WBC 2 0-5 /HPF Urine Squamous Epithelial Cells Few <5 /hpf Urine Transitional Epithelial Cells Few <2 /hpf Urine Renal Epithelial Cells Few None Seen /hpf Urine Bacteria None seen None Seen /hpf Urine Hyaline Casts Few 0 - 2 /lpf Urine Mucus Few None Seen Urine Glucose Normal Normal mg/dL Test 11/14/24 00:21 11/13/24 23:18 Range/Units Prothrombin Time 10.3 9.3-11.8 sec Prothrombin Time INR 0.97 0.9-1.15 Activated Partial Thromboplast Time 23.7 L 24.5-34.5 SEC Magnesium Level 1.8 1.6-2.6 mg/dL B-Type Natriuretic Peptide 85.76 0-100 pg/mL Assessment Impression: Pneumonia, gram positive Dependence on supplemental oxygen Aortic stenosis Non-ST elevation myocardial infarction Dyspnea Plan: Supplemental oxygen 2 LPM NC Titrate to keep O2 sats above 92%. Taper O2 as tolerated. Continue bronchodilators. Continue antibiotics Pulmicort twice daily IV steroids Pain control Avoid oversedation Cardiology recommendations appreciated. Monitor renal function. Monitor electrolytes. Supplement as necessary. Prognosis: Poor given patient's multiple co-morbidities. Rest of plan per hospitalist and other consultants. Thank you Dr. Chino, for allowing me to participate in this patient's care. Further recommendations will depend on the patient's clinical course. Please do not hesitate to contact me if you have any questions or concerns. This medical document was created using an electronic medical record system with [employer] dictation system. Although these documentations are being carefully reviewed, there may still be some phonetic and typographical changes. The errors are purely typographical, due to imperfection on the software program, and do not reflect any compromise in the patient's medical care. Plan discussed with: Patient, Other (RN/Dr. Chino) EVELINE ARNETT MD Nov 16, 2024 22:22
--- NOTE | 2024-11-16 22:38 | DVHPN2 ---
Progress Note - Dictate Date Seen: Nov 16, 2024 Medical Necessity Reason Pt with a Central, PICC or Fol: No Subjective Patient seen and examined at bedside. Remains on supplemental oxygen Overnight events reviewed. vital signs Vital Sign Date Time Temp Pulse Resp B/P (MAP) Pulse Ox O2 Delivery O2 Flow Rate FiO2 11/16/24 21:55 79 14 99 11/16/24 21:47 Nasal Cannula 2.0 11/16/24 21:47 28 11/16/24 21:00 97.4 134/83 (100) 97.4 Total Intake and Output 11/15/24 11/15/24 11/16/24 15:00 23:00 07:00 Intake Total 360 ml 860 ml 325 ml Output Total 1 ml 2 ml Balance 360 ml 859 ml 323 ml medications Current Medications Medications Dose Ordered Sig/Bossman Route Start Time Stop Time Status Last Admin Dose Admin Aspirin 81 mg DAILY PO 11/14/24 10:00 11/16/24 09:24 Atorvastatin Calcium 40 mg HS PO 11/14/24 22:00 11/16/24 21:43 Sodium Chloride 10 ml Q8HR IV 11/14/24 06:00 11/16/24 21:43 Acetaminophen/ Hydrocodone Bitart 1 tab Q4HP PRN PO 11/14/24 04:45 Ondansetron HCl 4 mg Q4HP PRN IV 11/14/24 04:45 Docusate Sodium 100 mg BIDPRN PRN PO 11/14/24 04:45 Acetaminophen 650 mg Q6HP PRN PO 11/14/24 04:45 Nitroglycerin 0.4 mg Q5MINP PRN SL 11/14/24 04:45 Morphine Sulfate 2 mg Q30M PRN IV 11/14/24 04:45 Albuterol 2.5 mg Q6HPRN PRN NEB 11/14/24 20:00 11/15/24 04:08 Albuterol 2.5 mg Q4HR NEB 11/15/24 06:00 11/16/24 21:47 Ipratropium [place] 0.5 mg Q4HR NEB 11/15/24 06:00 11/16/24 21:47 Budesonide 0.5 mg BID NEB 11/15/24 10:00 11/16/24 21:47 Ceftriaxone Sodium 50 ml @ 100 mls/hr DAILY@09 IV 11/16/24 09:00 11/16/24 09:24 Lorazepam 1 mg Q8HP PRN IV 11/15/24 18:45 11/16/24 14:22 Methylprednisolone Sodium Succinate 40 mg Q6H IV 11/16/24 10:00 11/16/24 21:42 objective Gen.: Patient lying in bed in no apparent distress. On supplemental oxygen. Head: Normocephalic, atraumatic. Eyes: EOMI/PERRLA. Ears: Normal hearing. Normal anatomy. Neck/trachea: Trachea midline, supple. Nose: Normal external anatomy. Mouth: Moist mucous membranes. Chest: Decreased air entry bilaterally. No wheezing or rhonchi. Cardiovascular: Positive S1, positive S2. Regular rate and rhythm. Abdomen: Positive bowel sounds in all 4 quadrants. Soft, non-tender, non- distended. : Deferred. Rectal: Deferred. Skin: Warm, dry. Intact. Extremities: 2+ radial pulses bilaterally. No lower extremity edema. Neuro: Awake, alert, oriented x3. No gross motor or sensory deficits. Cranial nerves II through XII intact. Gait not assessed. laboratory and microbiology Laboratory Tests 11/15/24 06:39 Test 11/15/24 06:39 Range/Units Serum Glucose 103 74-106 mg/dL Assessment/Plan Impression: Pneumonia, gram positive Dependence on supplemental oxygen Aortic stenosis Non-ST elevation myocardial infarction Dyspnea Events: Remains on supplemental oxygen, 2 LPM NC Taper O2 as tolerated Patient feeling less anxious Cardiology recs appreciated. Continue bronchodilators/Pulmicort Continue IV steroids Continue antibiotics Labs and imaging reviewed. Rest of plan as noted below. Plan: Supplemental oxygen Titrate to keep O2 sats above 92%. Continue bronchodilators. Continue antibiotics Pulmicort twice daily IV steroids Pain control Avoid oversedation Cardiology recommendations appreciated. Monitor renal function. Monitor electrolytes. Supplement as necessary. Prognosis: Guarded given patient's multiple co-morbidities. Rest of plan per hospitalist and other consultants. Thank you Dr. Chino, for allowing me to participate in this patient's care. Further recommendations will depend on the patient's clinical course. Please do not hesitate to contact me if you have any questions or concerns. This medical document was created using an electronic medical record system with [employer] dictation system. Although these documentations are being carefully reviewed, there may still be some phonetic and typographical changes. The errors are purely typographical, due to imperfection on the software program, and do not reflect any compromise in the patient's medical care. Plan discussed with: Patient, Other (RN) EVELINE ARNETT MD Nov 16, 2024 22:38
[2024-11-17] VITALS (14 sets, daily range): BP systolic 132–152; BP diastolic 65–77; PULSE 75–85; RESP 12–18; TEMP 97.3–97.9; O2SAT 90–100
--- NOTE | 2024-11-17 11:46 | DVHPN2 ---
Subjective The patient seen and examined at bedside. Tired today. Complains of shortness of breath and wheezing all night. Reviewed: Care Plan, H&P, Labs, Medications, Previous Orders Eyes: No Pain, No Vision change, No Conjunctivae inflammation, No Eyelid inflammation, No Other, No Redness ENT: No Ear pain, No Ear discharge, No Nose pain, No Nose discharge, No Nose congestion, No Mouth pain, No Mouth swelling, No Throat pain, No Throat swelling, No Other Cardiovascular: Chest Pain; No Palpitations, No Orthopnea, No Paroxysmal Noc. Dyspnea, No Edema, No Lt Headedness; Other (Dizzy spells) Respiratory: No Cough, No Dry, No Shortness of breath, No SOB with excertion, No Wheezing, No Hemoptysis, No Pleuritic Pain, No Sputum, No Other Gastrointestinal: No Nausea, No Vomiting, No Abdominal Pain, No Diarrhea, No Constipation, No Melena, No Hematochezia, No Other Genitourinary: No Dysuria, No Frequency, No Incontinence, No Hematuria, No Retention, No Other Musculoskeletal: No other, No neck pain, No shoulder pain, No arm pain, No back pain, No hand pain, No leg pain, No foot pain Skin: No Rash, No Lesions, No Jaundice, No Bruising, No Other Objective Vitals Vital Signs Date Time Temp Pulse Resp B/P (MAP) Pulse Ox O2 Delivery O2 Flow Rate FiO2 11/17/24 09:48 83 18 100 11/17/24 09:40 Nasal Cannula* 2 28 11/17/24 09:00 97.5 132/65 (87) 97.5 Intake/Output Intake and Output 11/17/24 07:00 Intake Total 1530 ml Balance 1530 ml Intake Oral 1480 ml IV Total 50 ml # Voids 5 General Appearance: Alert, Oriented X3, Cooperative, No acute distress HEENT: Atraumatic, PERRLA, EOMI, Mucous membr. moist/pink Neck: Supple Lungs: Normal air movement, Other (Bilateral wheezing and rhonchi) Cardiovascular: Regular rate, Normal S1, Normal S2, No murmurs, Gallops, Rubs Neuro: Cranial nerves 3-12 NL Psych/Mental Status: Mental status NL Medications Current Medications Medications Dose Ordered Sig/Bossman Route Start Time Stop Time Status Last Admin Dose Admin Aspirin 81 mg DAILY PO 11/14/24 10:00 11/17/24 09:57 81 MG Atorvastatin Calcium 40 mg HS PO 11/14/24 22:00 11/16/24 21:43 40 MG Sodium Chloride 10 ml Q8HR IV 11/14/24 06:00 11/17/24 06:16 10 ML Acetaminophen/ Hydrocodone Bitart 1 tab Q4HP PRN PO 11/14/24 04:45 Ondansetron HCl 4 mg Q4HP PRN IV 11/14/24 04:45 Docusate Sodium 100 mg BIDPRN PRN PO 11/14/24 04:45 Acetaminophen 650 mg Q6HP PRN PO 11/14/24 04:45 Nitroglycerin 0.4 mg Q5MINP PRN SL 11/14/24 04:45 Morphine Sulfate 2 mg Q30M PRN IV 11/14/24 04:45 Albuterol 2.5 mg Q6HPRN PRN NEB 11/14/24 20:00 11/15/24 04:08 2.5 MG Albuterol 2.5 mg Q4HR NEB 11/15/24 06:00 11/17/24 09:40 2.5 MG Ipratropium [place] 0.5 mg Q4HR NEB 11/15/24 06:00 11/17/24 09:40 0.5 MG Budesonide 0.5 mg BID NEB 11/15/24 10:00 11/17/24 06:28 0.5 MG Ceftriaxone Sodium 50 ml @ 100 mls/hr DAILY@09 IV 11/16/24 09:00 11/17/24 09:59 100 MLS/HR Lorazepam 1 mg Q8HP PRN IV 11/15/24 18:45 11/16/24 22:26 1 MG Methylprednisolone Sodium Succinate 40 mg Q6H IV 11/16/24 10:00 11/17/24 09:58 40 MG Laboratory Results Laboratory Tests 11/15/24 06:39 Urinalysis Test 11/14/24 01:53 Urine Color Light-yellow (Yellow) Urine Clarity Clear (Clear) Urine pH 5.5 (5.0-9.0) Urine Specific [place] 1.010 (1.001-1.035) Urine Protein Negative (Negative) Urine Ketones Trace (Negative) Urine Blood Negative /uL (Negative) Urine Nitrite Negative (Negative) Urine Bilirubin Negative (Negative) Urine Urobilinogen Normal mg/dL (Negative) Urine Leukocyte Esterase Negative /uL (Negative) Urine RBC 3 /hpf (0 - 4) Urine Microscopic WBC 2 /HPF (0-5) Urine Squamous Epithelial Cells Few /hpf (<5) Urine Transitional Epithelial Cells Few /hpf (<2) Urine Renal Epithelial Cells Few /hpf (None Seen) Urine Bacteria None seen /hpf (None Seen) Urine Hyaline Casts Few /lpf (0 - 2) Urine Mucus Few (None Seen) Urine Glucose Normal mg/dL (Normal) Assessment/Plan Assessment/Plan Syncope and collapse Ground-level fall Generalized weakness Non-STEMI (non-ST elevated myocardial infarction) Hypotension, unspecified Symptomatic bradycardia Pneumonia, possible Gram-positive pneumonia Continuing current management. Continuing with pain medication. We will monitor blood pressure. Right now her blood pressure is elevated. We will get Physical therapy to get the patient out of bed and ambulate Continue the patient on Rocephin 1 g IV q.day Will continue IV solumedrol Pulmonology consult This medical document was created using an electronic medical record system with [employer] computerized dictation system. Although this document has been carefully reviewed, there may still be some phonetic and typographical errors. These areas are purely typographical due to imperfections of the software programs, and do not reflect any compromise in the patient's medical care. ANGELA MALDONADO MD Nov 17, 2024 11:46
[2024-11-17] MEDS ORDERED: AZIT-185 PO (13:29)
[2024-11-17] MEDS ORDERED: LORA-655 PO (13:29)
--- NOTE | 2024-11-17 13:32 | DVHDS2 ---
Discharge Summary Date of Admission Nov 14, 2024 at 04:42 Date of Discharge: Nov 17, 2024 Admitting Diagnosis Syncope and collapse Ground-level fall Generalized weakness Non-STEMI (non-ST elevated myocardial infarction) Hypotension, unspecified Symptomatic bradycardia Pneumonia, possible Gram-positive pneumonia Labs/Diagnostic Data: Laboratory Results Test 11/15/24 20:06 11/15/24 06:39 11/14/24 02:05 11/14/24 01:53 SARS-CoV-2 Antigen (Rapid) Negative (NEGATIVE) White Blood Count 4.4 10^3/uL (4.4-10.8) Red Blood Count 4.45 10^6/uL (4.0-5.20) Hemoglobin 13.9 g/dL (12.2-16.2) Hematocrit 41.6 % (36.0-46.0) Mean Corpuscular Volume 93.6 fL (80.0-100.0) Mean Corpuscular Hemoglobin 31.3 pg (28.0-32.0) Mean Corpuscular Hemoglobin Concent 33.4 g/dL (32.0-36.0) Red Cell Distribution Width 13.1 % (11.8-14.3) Platelet Count 212 10^3/uL (140-450) Mean Platelet Volume 7.5 fL (6.9-10.8) Neutrophils (%) (Auto) 54.9 % (37.0-80.0) Lymphocytes (%) (Auto) 29.4 % (10.0-50.0) Monocytes (%) (Auto) 8.4 % (0.0-12.0) Eosinophils (%) (Auto) 6.5 % (0.0-7.0) Basophils (%) (Auto) 0.8 % (0.0-2.0) Neutrophils # (Auto) 2.4 10 ^3/uL (1.6-8.6) Lymphocytes # (Auto) 1.3 10 ^3/uL (0.4-5.4) Monocytes # (Auto) 0.4 10 ^3/uL (0-1.3) Eosinophils # (Auto) 0.3 10 ^3/uL (0-0.8) Basophils # (Auto) 0 10 ^3/uL (0-0.2) Nucleated Red Blood Cells 0.0 % Sodium Level 143 mmol/L (136-145) Potassium Level 3.9 mmol/L (3.5-5.1) Chloride Level 109 mmol/L (98-107) Carbon Dioxide Level 25 mmol/L (20-31) Anion Gap 9 (5-15) Blood Urea Nitrogen 11 mg/dL (9-23) Creatinine 0.71 mg/dL (0.550-1.02) Glomerular Filtration Rate Calc 89 mL/min (>90) BUN/Creatinine Ratio 15.5 (10.0-20.0) Serum Glucose 103 mg/dL (74-106) Calcium Level 9.6 mg/dL (8.7-10.4) Total Bilirubin 1.0 mg/dL (0.2-1.0) Aspartate Amino Transferase (AST) 19 U/L (13-40) Alanine Aminotransferase (ALT) 21 U/L (7-40) Alkaline Phosphatase 54 U/L (46-116) Total Protein 6.2 g/dL (5.7-8.2) Albumin 4.2 g/dL (3.2-4.8) Troponin I High Sensitivity 238 ng/L (</=34) Urine Color Light-yellow (Yellow) Urine Clarity Clear (Clear) Urine pH 5.5 (5.0-9.0) Urine Specific [place] 1.010 (1.001-1.035) Urine Protein Negative (Negative) Urine Ketones Trace (Negative) Urine Blood Negative /uL (Negative) Urine Nitrite Negative (Negative) Urine Bilirubin Negative (Negative) Urine Urobilinogen Normal mg/dL (Negative) Urine Leukocyte Esterase Negative /uL (Negative) Urine RBC 3 /hpf (0 - 4) Urine Microscopic WBC 2 /HPF (0-5) Urine Squamous Epithelial Cells Few /hpf (<5) Urine Transitional Epithelial Cells Few /hpf (<2) Urine Renal Epithelial Cells Few /hpf (None Seen) Urine Bacteria None seen /hpf (None Seen) Urine Hyaline Casts Few /lpf (0 - 2) Urine Mucus Few (None Seen) Urine Glucose Normal mg/dL (Normal) Test 11/14/24 00:21 11/13/24 23:18 Prothrombin Time 10.3 sec (9.3-11.8) Prothrombin Time INR 0.97 (0.9-1.15) Activated Partial Thromboplast Time 23.7 SEC (24.5-34.5) Magnesium Level 1.8 mg/dL (1.6-2.6) B-Type Natriuretic Peptide 85.76 pg/mL (0-100) Other Laboratory Tests 11/15/24 06:39 Brief Hx & Hospital Course: This is a 74 years old female with past medical history of UTI, COPD, [place], hyperlipidemia, and hypertension came to emergency department because of a syncopal episode. Patient was found to have hypotensive with blood pressure of 50/30, bradycardia with heart rate in the 40. The patient was given atropine 1 mg IV push and 500 mL of normal saline. Blood pressure improved to 110/53. Patient's CT head showed no acute intracranial abnormality. Cardiology was consulted. Dr. Johnson, her customer sales representative see the patient. Per Dr. Johnson, her previous transthoracic echocardiogram from 09/25/2024 reveals EF 65% with severe aortic stenosis. The patient sees customer sales representative in the outpatient setting. She has been referred to [facility] for valvular workup. She reports that she was last seen last month at [facility] and was told that at this time she does not need a valve replacement. There is no further inpatient cardiac workup indicated at this time. The patient will follow up with and [facility] customer sales representative as outpatient basic. The patient also had severe shortness for breath and COPD. The patient was put on IV antibiotic with Rocephin and Zithromax. The patient was given nebulizer and Solu-Medrol. Pulmonology see the patient recommend outpatient follow up. Today she did not complain of any shortness for breath. No syncopal episode I am going to discharge her home. Advised her to follow up with primary care physician 1-2 weeks. Follow up with customer sales representative at [facility] per schedule. Follow up with Dr. Johnson per schedule. Follow up with Dr. Vargas airplane tube builder per schedule. Physical exam: HEENT: Normocephalic atraumatic pupils equal react to light and accommodation. Extraocular muscles intact, conjunctiva pink, oropharynx moist, no thrush, no exudate. Lymphatic: No lymphadenopathy Cardiovascular exam: S1, S2 was heard. No murmurs, rubs, gallops Lung: Clear on auscultation bilaterally, no wheeze, rale, rhonchi. GI: Abdominal soft, nondistended, nontenderness, positive bowel sounds. Extremity: No crepitus, cyanosis, edema. Pedal pulses present bilateral. Full range of motion. Skin: Normal turgor, no rash. Psych: Alert, oriented x3. Neurology: No focal deficits, cranial nerve II to XII grossly intact. Condition at Discharge: Stable Final Diagnosis/Problems List Syncope and collapse Ground-level fall Generalized weakness Non-STEMI (non-ST elevated myocardial infarction) Hypotension, unspecified Symptomatic bradycardia Pneumonia, possible Gram-positive pneumonia COPD Discharge Disposition: Home Discharge Instruct/Medications Diet: Cardiac 2g Na,low cholest Activity: No Restrictions, As Tolerated Follow Up/Referral: pcp 1-2 weeks Medications: see med list Discharge Statement: "Patient was advised to return to the ER or call 911 if any headaches, dizziness, shortness of breath, chest pain, abdominal pain, bleeding, fevers, or worsening of medical condition. Patient was counseled about treatment plan, medications, possible side effects, patientverbalized understanding. All questions were answered to the best of my ability. This discharge took greater then 30 minutes in planning, reviewing documentation, counseling the patient, and discussing with other team members." ASSESSMENT ASSESSMENT Assessment pna copd syncope Date of Service: Nov 17, 2024 Billing Provider: ANGELA MALDONADO MD Common Visit Codes: 26897-GPK/OBS DISCH DAY >30min ANGELA MALDONADO MD Nov 17, 2024 13:32
--- NOTE | 2024-11-17 23:04 | DVHPN2 ---
Progress Note - Dictate Date Seen: Nov 17, 2024 Medical Necessity Reason Pt with a Central, PICC or Fol: No Subjective Patient seen and examined at bedside. Breathing comfortably on room air Overnight events reviewed. vital signs Vital Sign Date Time Temp Pulse Resp B/P (MAP) Pulse Ox O2 Delivery O2 Flow Rate FiO2 11/17/24 14:38 97.5 78 17 91 11/17/24 14:11 Room Air* 0 21 11/17/24 13:00 148/67 (94) Total Intake and Output 11/16/24 11/16/24 11/17/24 15:00 23:00 07:00 Intake Total 50 ml 1250 ml 230 ml Balance 50 ml 1250 ml 230 ml objective Gen.: Patient lying in bed in no apparent distress. On room air. Head: Normocephalic, atraumatic. Eyes: EOMI/PERRLA. Ears: Normal hearing. Normal anatomy. Neck/trachea: Trachea midline, supple. Nose: Normal external anatomy. Mouth: Moist mucous membranes. Chest: Decreased air entry bilaterally. No wheezing or rhonchi. Cardiovascular: Positive S1, positive S2. Regular rate and rhythm. Abdomen: Positive bowel sounds in all 4 quadrants. Soft, non-tender, non- distended. : Deferred. Rectal: Deferred. Skin: Warm, dry. Intact. Extremities: 2+ radial pulses bilaterally. No lower extremity edema. Neuro: Awake, alert, oriented x3. No gross motor or sensory deficits. Cranial nerves II through XII intact. Gait not assessed. laboratory and microbiology Laboratory Tests 11/15/24 06:39 Test 11/15/24 06:39 Range/Units Serum Glucose 103 74-106 mg/dL Assessment/Plan Impression: Pneumonia, gram positive Aortic stenosis Non-ST elevation myocardial infarction Dyspnea Events: Currently on room air supplemental oxygen PRN Improved O2 requirements Continue bronchodilators/Pulmicort BID Complete steroid course Complete antibiotic course Pain control Avoid oversedation Cardiology recommendations appreciated Patient is stable for discharge from the pulmonary standpoint. Follow up in 2-3 weeks in Pulmonary Clinic. Labs and imaging reviewed. Rest of plan as noted below. Plan: Supplemental oxygen Titrate to keep O2 sats above 92%. Continue bronchodilators. Pulmicort twice daily Complete steroid course Complete antibiotic course Pain control Avoid oversedation Cardiology recommendations appreciated. Monitor renal function. Monitor electrolytes. Supplement as necessary. Prognosis: Guarded given patient's multiple co-morbidities. Rest of plan per hospitalist and other consultants. Thank you Dr. Chino, for allowing me to participate in this patient's care. Further recommendations will depend on the patient's clinical course. Please do not hesitate to contact me if you have any questions or concerns. This medical document was created using an electronic medical record system with [employer] dictation system. Although these documentations are being carefully reviewed, there may still be some phonetic and typographical changes. The errors are purely typographical, due to imperfection on the software program, and do not reflect any compromise in the patient's medical care. Plan discussed with: Patient, Other (MANPREET Hurd) EVELINE ARNETT MD Nov 17, 2024 23:04
== END 2024-11-17 15:18 | disposition home health service (06) | DRG 193 ==
LOC: EDBD 22:18 → ER 22:18 → OVERFLOW 11-14 04:42 → TELE-WESTW 11-14 10:40
PROVIDERS: ADMIT Internal Medicine; ATTEND Internal Medicine
DX: J15.9 Unspecified bacterial pneumonia (principal); I21.A1 Myocardial infarction type 2; J96.01 Acute respiratory failure with hypoxia; J44.0 Chronic obstructive pulmonary disease with (acute) lower respiratory infection; I95.9 Hypotension, unspecified; Z20.822 Contact with and (suspected) exposure to COVID-19; E78.5 Hyperlipidemia, unspecified; I35.0 Nonrheumatic aortic (valve) stenosis; I71.21 Aneurysm of the ascending aorta, without rupture; I10 Essential (primary) hypertension; R00.1 Bradycardia, unspecified; Z82.0 Family history of epilepsy and other diseases of the nervous system; Z88.8 Allergy status to other drugs, medicaments and biological substances; Z91.041 Radiographic dye allergy status; Z79.899 Other long term (current) drug therapy; Z99.81 Dependence on supplemental oxygen; Z87.440 Personal history of urinary (tract) infections
CPT/HCPCS: 36415; 70450; 71045; 80053; 81001; 83735; 83880; 84484; 85025; 85610; 85730; 87426; 93005; 94640; 96360; 96361; 96372; 97110; 97163; 99291; G0378

== ENCOUNTER 2025-09-16 10:13 | Inpatient (IN) | payer MEDICARE, OTHER ==
[~2025-09-16] VITALS: Ht 175.3 cm; Wt 89.2 kg
[~2025-09-16 10:13] MED LIST changes: +AZIT-185 PO; -GUAI600T76 PO; +LORA-655 PO; -PRED20TA2 PO
--- NOTE | 2025-09-16 10:28 | ECG ---
[facility] Test Date: 2025-09-16 Test Time: 10:27:50 Pat Name: JOJO CROW Department: ED Room: 0295T Gender: F Biology Department Chair: SVEN : 1950 Requested By: SHIRA PURI Order Number: [id number] Reading MD: Perico Robertson Measurements Intervals [place] Rate: 52 P: 14 MD: 132 QRS: 3 QRSD: 96 T: 38 QT: 494 QTc: 460 Interpretive Statements Sinus rhythm Electronically Signed On 09-19-2025 15:22:36 PST by Perico Robertson Please click the below link to view image of tracing.
--- NOTE | 2025-09-16 12:19 | ED.PDOC ---
History of Present Illness HPI Comments 74 y/o F presents with c/c of mild shortness of breath, productive cough, and congestion. Significant history for COPD, HLD, HTN, KS, UTI's, aortic aneurysm, anxiety, recurrent PNA, and previous intubation and extubation. Patient endorses on recent development of symptoms and expresses concerns of developing PNA, again. She denies any chest pain, fever, chills, or further acute symptoms. Chief Complaint: Shortness of Breath Time Seen by MD: 10:20 Primary Care Provider: unknown Reviewed Notes: Nurses Notes, Medications, Allergies Allergies: Coded Allergies: Iodine (Verified Allergy, Mild, 03/22/24) itching 20 years ago Home Meds Active Scripts Azithromycin (ZITHROMAX TABLET) 250 Mg Tb, 250 MG PO DAILY, #6 TAB Prov:ANGELA MALDONADO MD 11/17/24 Lorazepam (Ativan) 0.5 Mg Tab, 1 TAB PO BID PRN, #20 TAB Prov:ANGELA MALDONADO MD 11/17/24 Albuterol Sulfate (Albuterol Sulfate Hfa) 108 Mcg/Act Aer, 108 MCG IN Q4HP PRN for 10 Days, #1 AER Prov:IMELDA TOBAR MD 09/15/24 Albuterol Sulfate (Albuterol Sulfate) 0.083 % Neb, 1 VIAL NEB Q4HPRN, #50 VIAL Prov:IMELDA TOBAR MD 09/15/24 Apixaban Base (ELIQUIS) 5 Mg Tab, 5 MG PO BID, #90 TAB Prov:SRINIVAS BLANCHARD MD 04/01/24 Reported Medications Losartan Potassium (Losartan Potassium) 25 Mg Tab, 1 TAB PO DAILY for 30 Days, #30 11/15/24 Escitalopram Oxalate (ESCITALOPRAM OXALATE) 10 Mg Tab, 1 TAB PO DAILY 09/24/24 Pantoprazole Sodium Sesquihydr (Protonix) 40 Mg Tab, 1 TAB PO DAILY for 30 Days, #30 05/26/24 Potassium Chloride (K-Tab) 20 Meq Tab, 1 TAB PO DAILY for 90 Days, #90 05/26/24 Benzonatate (Benzonatate) 100 Mg Cap, 1 CAP PO TID 05/26/24 Atorvastatin Calcium (ATORVASTATIN CALCIUM) 40 Mg Tab, 1 TAB PO DAILY 05/26/24 Nifedipine (Nifedipine Er) 30 Mg Tab, 1 TAB PO DAILY for 30 Days, #30 03/20/24 Information Source: Patient Mode of Arrival: Ambulatory Severity: Moderate Timing: Days Duration: Since onset Prehospital treatment: None Past Medical History PAST MEDICAL HISTORY: COPD, High Lipids, HTN, KS, UTI'S Past Medical History (Other): History of recurrent PNA Surgical History: Denies all surgeries 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 History Family History Family History: Reviewed,noncontributory to illness Social History Smoker: Non-Smoker Alcohol: Denies ETOH Use Drugs: Denies Drug Use Lives In: Home All Other Systems: Reviewed and Negative (Comprehensive systems review obtained and negative except for what is stated in the HPI.) Physical Exam General Appearance: No Apparent Distress, Normal HEENT: Normal ENT Inspection, Pharynx Normal, TMs Normal Neck: Full Range of Motion, Non-Tender, Normal, Normal Inspection Respiratory: Chest Non-Tender, Lungs Clear, No Accessory Muscle Use, No Respiratory Distress, Normal Breath Sounds Cardiovascular: No Edema, No JVD, No Murmur, No Gallop, Normal Peripheral Pulses, Regular Rate/Rhythm Breast Exam: Deferred Gastrointestinal: No Organomegaly, Non Tender, No Pulsatile Mass, Normal Bowel Sounds, Soft Genitalia: Deferred Pelvic: Deferred Rectal: Deferred Extremities: No calf tenderness, Normal capillary refill, Normal inspection, Normal range of motion, Non-tender, No pedal edema Musculoskeletal : Apperance: Normal Neurologic: Alert, gang supervisor pipe lines 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 Was a procedure done?: No EKG EKG : Pulse Rate (adult): 52 Wolf: Normal Cardiac Rhythm: NSR Block: None Hypertrophy: None ST: Normal Differential Dx Considerations may include: PNA, URI, acute COPD exacerbation, KS, PE, among others X-Ray, Labs, Meds, VS Vital Signs Date Time Temp Pulse Resp B/P (MAP) Pulse Ox O2 Delivery O2 Flow Rate FiO2 09/16/25 13:04 18 95 Room Air* 0 21 09/16/25 12:50 57 16 136/70 (92) 97 09/16/25 12:19 52 09/16/25 10:50 16 97 Room Air 09/16/25 10:50 97.9 55 16 157/92 (113) 97 97.9 09/16/25 10:27 52 09/16/25 10:15 97.7 51 18 175/73 97 97.7 Lab Test 09/16/25 12:34 Range/Units White Blood Count 4.9 4.4-10.8 10^3/uL Red Blood Count 4.55 4.0-5.20 10^6/uL Hemoglobin 14.5 12.2-16.2 g/dL Hematocrit 42.2 36.0-46.0 % Mean Corpuscular Volume 92.7 80.0-100.0 fL Mean Corpuscular Hemoglobin 31.9 28.0-32.0 pg Mean Corpuscular Hemoglobin Concent 34.5 32.0-36.0 g/dL Red Cell Distribution Width 13.8 11.8-14.3 % Platelet Count 243 140-450 10^3/uL Mean Platelet Volume 7.1 6.9-10.8 fL Neutrophils (%) (Auto) 64.4 37.0-80.0 % Lymphocytes (%) (Auto) 20.1 10.0-50.0 % Monocytes (%) (Auto) 9.4 0.0-12.0 % Eosinophils (%) (Auto) 5.3 0.0-7.0 % Basophils (%) (Auto) 0.8 0.0-2.0 % Neutrophils # (Auto) 3.2 1.6-8.6 10 ^3/uL Lymphocytes # (Auto) 1.0 0.4-5.4 10 ^3/uL Monocytes # (Auto) 0.5 0-1.3 10 ^3/uL Eosinophils # (Auto) 0.3 0-0.8 10 ^3/uL Basophils # (Auto) 0 0-0.2 10 ^3/uL Nucleated Red Blood Cells 0.0 % Sodium Level 143 136-145 mmol/L Potassium Level 4.2 3.5-5.1 mmol/L Chloride Level 105 98-107 mmol/L Carbon Dioxide Level 28 20-31 mmol/L Anion Gap 10 5-15 Blood Urea Nitrogen 17 9-23 mg/dL Creatinine 0.82 0.550-1.02 mg/dL Glomerular Filtration Rate Calc 75 >90 mL/min BUN/Creatinine Ratio 20.7 H 10.0-20.0 Serum Glucose 92 74-106 mg/dL Calcium Level 9.7 8.7-10.4 mg/dL Total Bilirubin 1.2 H 0.2-1.0 mg/dL Aspartate Amino Transferase (AST) 22 13-40 U/L Alanine Aminotransferase (ALT) 23 7-40 U/L Alkaline Phosphatase 91 46-116 U/L Troponin I High Sensitivity 77 *H </=34 ng/L Total Protein 7.0 5.7-8.2 g/dL Albumin 4.7 3.2-4.8 g/dL Current Medications Medications (Trade) Dose Ordered Sig/Bossman Route Start Time Stop Time Status Last Admin Albuterol (Ventolin Medneb) 5 mg ONCE ONCE NEB 09/16/25 12:00 09/16/25 12:01 DC 09/16/25 13:03 Ipratropium [place] (Atrovent Medneb) 0.5 mg ONCE ONCE NEB 09/16/25 12:00 09/16/25 12:01 MI 09/16/25 13:03 [place] [id number] Ph: [phone] DIAGNOSTIC IMAGING Diagnostic Imaging Report : [id number] Signed PATIENT: JOJO CROW ACCT: [id number] UNIT: [id number] : 1950 LOC: ER ROOM / BED: / AGE / SEX: 74 / F ADM STATUS: REG ER SERVICE 1157 ORDERING PHYSICIAN: GRISEL GRANT MD PROCEDURE(s): CXRP - CHEST PORTABLE REASON: sob ORDER NUMBER(s): [id number], ACCESSION NUMBER(s): [id number] EXAM: XY CHEST PORTABLE HISTORY: sob, cough COMPARISON: XY CHEST PORTABLE on DOS: 11/13/24, XY CHEST PORTABLE on DOS: 09/24/24, XY CHEST PORTABLE on DOS: 09/15/24, XY CHEST PORTABLE on DOS: 05/25/24, XY CHEST PORTABLE on DOS: 04/06/24 TECHNIQUE: Portable AP view of the chest was performed. FINDINGS: No pneumothorax, consolidative infiltrates, or pulmonary edema. The heart is not enlarged. The aortic arch is calcific. There is slight lower thoracic dextroscoliosis. IMPRESSION: 1. No acute intrathoracic process. 2. Atherosclerotic vascular disease. ATED BY: PINEDA MARRERO MD DICTATED DATE/TIME: 09/16/25 130 SIGNED BY: PINEDA MARRERO MD SIGNED DATE/TIME: 09/16/25 130 CC: Time of 1ST Reevaluation: 10:55 Reevaluation 1ST: Unchanged Patient Education/Counseling: Diagnosis, Treatment Family Education/Counseling: No Family Present Additional Information Previous history reviewed: September 15, 2024 and September 24, 2024 encounters for COPD and asthma exacerbation, respectively. The following tests were ordered, and results were reviewed by me: EKG, Troponin, CMP, CBC Additional Information was gathered from interviewing the following independent historians: N/A I reviewed and agreed with the following test results read by other providers: CXR I discussed treatment and results with medical personnel and: patient SEPSIS Sepsis Screen Date sepsis recognized/suspect: Sep 16, 2025 Time Sepsis recognized/suspect: 1053 Recent Procedure: No On Antibiotic Therapy: No Respiratory Rate >20: No Heart Rate >90: No Temp<36 C (96.8 F) or >38.3 C: No SBP <90 or MAP <65 mmHG: No New Acute Mental Status Change: No Is the patient on CPAP, BIPAP,: No Physician Orders Chest Portable (09/16/25 11:57) Electrocardigram (09/16/25 11:57) Vital Signs Date Time Temp Pulse Resp B/P (MAP) Pulse Ox O2 Delivery O2 Flow Rate FiO2 09/16/25 13:04 18 95 Room Air* 0 21 09/16/25 12:50 57 16 136/70 (92) 97 09/16/25 12:19 52 09/16/25 10:50 16 97 Room Air 09/16/25 10:50 97.9 55 16 157/92 (113) 97 97.9 09/16/25 10:27 52 09/16/25 10:15 97.7 51 18 175/73 97 97.7 Laboratory Tests Test 09/16/25 12:34 White Blood Count 4.9 10^3/uL (4.4-10.8) Medications Medications Dose Ordered Sig/Bossman Route Start Time Stop Time Status Last Admin Dose Admin Albuterol 5 mg ONCE ONCE NEB 09/16/25 12:00 09/16/25 12:01 DC 09/16/25 13:03 Ipratropium [place] 0.5 mg ONCE ONCE NEB 09/16/25 12:00 09/16/25 12:01 DC 09/16/25 13:03 Departure 1 Departure Time of Disposition: 14:41 (Patient presented with acute shortness of breath concerning for acute on chronic COPD Exacerbation, Pneumonia, ACS, CHF, Pneumothorax. Less likely PE, Dissection. Data: 1. I ordered and reviewed the result of at least 3 labs including a CBC, BMP, and Troponin. 2. I independently interpreted the following tests: Chest X-ray shows vascular congestion .Risk:This patient has a high risk of morbidity due to further diagnostic testing or treatment and may suffer from respiratory or cardiac etiology . Workup reveals a likely COPD Exacerbation and patient should be admitted for further workup. and possible expert consultation.) Impression: Primary Impression: Acute and chronic respiratory failure Additional Impression: Elevated troponin Disposition: ADMITTED INPATIENT Admit to: Tele Condition: Guarded Critical Care Note Critical Care Time?: No Stability Stability form required: No Heart Score Heart Score: Heart Score Response (Comments) Value History Slightly Suspicious 0 EKG Normal 0 Age >65 2 Risk Factors >3 or Hx ASHD 2 Troponin 1-2 x's Normal limit 1 Total 5 I personally scribed for GRISEL GRANT MD ([email or web address]) on 09/16/25 at 12:19. Electronically submitted by Napoleon Dougherty ([email or web address]). I personally scribed for GRISEL GRANT MD ([email or web address]) on 09/16/25 at 14:14. Electronically submitted by Napoleon Dougherty ([email or web address]). GRISEL GRANT MD Sep 16, 2025 12:19
[2025-09-16 12:41] LABS: Hematocrit 42.2 % (36.0-46.0); Hemoglobin 14.5 g/dL (12.2-16.2); Mean Corpuscular Hemoglobin 31.9 pg (28.0-32.0); Mean Corpuscular Volume 92.7 fL (80.0-100.0); Nucleated Red Blood Cells % 0.0 %
[2025-09-16 12:55] LABS: Alanine Aminotransferase 23 U/L (7-40); Albumin 4.7 g/dL (3.2-4.8); Alkaline Phosphatase 91 U/L (46-116); Anion Gap 10 (5-15); BUN/Creatinine Ratio 20.7 (10.0-20.0); Bilirubin, Total 1.2 mg/dL (0.2-1.0); Blood Urea Nitrogen 17 mg/dL (9-23); Calcium 9.7 mg/dL (8.7-10.4); Carbon Dioxide 28 mmol/L (20-31); Chloride 105 mmol/L (98-107); Glucose 92 mg/dL (74-106); Potassium 4.2 mmol/L (3.5-5.1); Sodium 143 mmol/L (136-145); Total Protein 7.0 g/dL (5.7-8.2)
[2025-09-16] MEDS: ALBUTEROL SULF 2.5 MG/0.5ML(0.5%) NEB SOLN NEB ONE (13:03)
[2025-09-16] MEDS: IPRATROPIUM BROM 0.5 MG/2.5ML INH SOL NEB ONE (13:03)
--- NOTE | 2025-09-16 13:09 | DVH ---
EXAM: XY CHEST PORTABLE HISTORY: sob, cough COMPARISON: XY CHEST PORTABLE on DOS: 11/13/24, XY CHEST PORTABLE on DOS: 09/24/24, XY CHEST PORTABLE on DOS: 09/15/24, XY CHEST PORTABLE on DOS: 05/25/24, XY CHEST PORTABLE on DOS: 04/06/24 TECHNIQUE: Portable AP view of the chest was performed. FINDINGS: No pneumothorax, consolidative infiltrates, or pulmonary edema. The heart is not enlarged. The aortic arch is calcific. There is slight lower thoracic dextroscoliosis. IMPRESSION: 1. No acute intrathoracic process. 2. Atherosclerotic vascular disease.
[2025-09-16] MEDS ORDERED: NITROGLYCERIN 0.4 MG SL TAB SL PRN (16:00)
[2025-09-16] MEDS ORDERED: MORPHINE SULFATE 4 MG/ML SYR/VIAL IV PRN (16:00)
[2025-09-16 16:03] VITALS: BP 147/68; PULSE 64; RESP 18; TEMP 97.9; O2SAT 95
--- NOTE | 2025-09-16 16:03 | DVHHPRES ---
History of Present Illness Resident Creating Document: CHAPITO MCCARTNEY RESIDENT History of Present Illness Chandrika Adams is a 74-year-old female with past medical history of COPD, with recurrent pneumonia, ID, hyperlipidemia, aortic heart valve narrowing, aortic root dilation, anxiety and hypertension. The patient came to [facility] with chief complain of 3 days of progressively worsen dyspnea and wheezing, associated with flu-like symptoms: fever, chills and productive cough with yellow sputum. On further questioning, the patient reports recurrent pneumonias and previous intubation at [facility] in 2023. The patient denies any chest pain, palpitation, leg swelling, sick contacts, recent travel or other symptoms. In the ED, Troponins were 77, BP: 147/68mmHg. The patient will be admitted for further diagnosed and management. Cardiovascular: HTN, ID, hyperipidemia, valve insufficiency Pulmonary: COPD Psych: Anxiety Family History: None Smoke: No ALCOHOL: occassional Lives: with Family Domestic Violence: Neg Review of Systems Constitutional: Yes: Fever, Chills; No: Sweats, Weakness, Malaise, Other Eyes: No: Pain, Vision change, Conjunctivae inflammation, Eyelid inflammation, Other, Redness ENT: No: Ear pain, Ear discharge, Nose pain, Nose discharge, Nose congestion, Mouth pain, Mouth swelling, Throat pain, Throat swelling, Other Respiratory: Cough (Productive wet cough ), Shortness of breath, Wheezing, Sputum (Yellow sputum ); No: Dry, SOB with excertion, Hemoptysis, Pleuritic Pain, Wheezing, Other Cardiovascular: No: Chest Pain, Palpitations, Orthopnea, Paroxysmal Noc. Dyspnea, Edema, Lt Headedness, Other Gastrointestinal: No: Nausea, Vomiting, Abdominal Pain, Diarrhea, Constipation, Melena, Hematochezia, Other Genitourinary: No Dysuria, No Frequency, No Incontinence, No Hematuria, No Retention, No Other Musculoskeletal: No: other, neck pain, shoulder pain, arm pain, back pain, hand pain, leg pain, foot pain Skin: No: Rash, Lesions, Jaundice, Bruising, Other Neurological: No: Weakness, Numbness, Incoordination, Change in speech, Confusion, Seizures, Other Allergies: Coded Allergies: Iodine (Verified Allergy, Mild, 03/22/24) itching 20 years ago Medications Patient on eliquis at home 5mg bid, Albuterol Current Medications Medications Dose Ordered Sig/Bossman Route Start Time Stop Time Status Last Admin Dose Admin Morphine Sulfate 2 mg Q30M PRN IV 09/16/25 16:00 Nitroglycerin 0.4 mg Q5MINP PRN SL 09/16/25 16:00 UNV Exam Vital Signs Vital Signs Date Time Temp Pulse Resp B/P (MAP) Pulse Ox O2 Delivery O2 Flow Rate FiO2 09/16/25 15:00 64 17 147/68 (94) 98 09/16/25 13:04 Room Air* 0 21 09/16/25 10:50 97.9 97.9 General Appearance: Alert, Oriented X3, Cooperative, mild distress HEENT: Atraumatic, PERRLA, EOMI, Mucous membr. moist/pink Respiratory: Other (Bilateral whezzing and roncus. ) Cardiovascular: Regular rate, Normal S1, Normal S2, No murmurs Abdominal: Normal bowel sounds, Soft, No tenderness Extremities: No clubbing, No cyanosis, No edema, Normal pulses, No tenderness/swelling Skin: No rashes, No breakdown, No significant lesion Neuro: Normal gait, Normal speech, Strength at 5/5 X4 ext, Normal tone, Sensation intact, Cranial nerves 3-12 NL, Reflexes 2+ Psych/Mental Status: Mental status NL, Mood NL, Other Labs/Xrays Labs Test 09/16/25 12:34 Range/Units White Blood Count 4.9 4.4-10.8 10^3/uL Red Blood Count 4.55 4.0-5.20 10^6/uL Hemoglobin 14.5 12.2-16.2 g/dL Hematocrit 42.2 36.0-46.0 % Mean Corpuscular Volume 92.7 80.0-100.0 fL Mean Corpuscular Hemoglobin 31.9 28.0-32.0 pg Mean Corpuscular Hemoglobin Concent 34.5 32.0-36.0 g/dL Red Cell Distribution Width 13.8 11.8-14.3 % Platelet Count 243 140-450 10^3/uL Mean Platelet Volume 7.1 6.9-10.8 fL Neutrophils (%) (Auto) 64.4 37.0-80.0 % Lymphocytes (%) (Auto) 20.1 10.0-50.0 % Monocytes (%) (Auto) 9.4 0.0-12.0 % Eosinophils (%) (Auto) 5.3 0.0-7.0 % Basophils (%) (Auto) 0.8 0.0-2.0 % Neutrophils # (Auto) 3.2 1.6-8.6 10 ^3/uL Lymphocytes # (Auto) 1.0 0.4-5.4 10 ^3/uL Monocytes # (Auto) 0.5 0-1.3 10 ^3/uL Eosinophils # (Auto) 0.3 0-0.8 10 ^3/uL Basophils # (Auto) 0 0-0.2 10 ^3/uL Nucleated Red Blood Cells 0.0 % Sodium Level 143 136-145 mmol/L Potassium Level 4.2 3.5-5.1 mmol/L Chloride Level 105 98-107 mmol/L Carbon Dioxide Level 28 20-31 mmol/L Anion Gap 10 5-15 Blood Urea Nitrogen 17 9-23 mg/dL Creatinine 0.82 0.550-1.02 mg/dL Glomerular Filtration Rate Calc 75 >90 mL/min BUN/Creatinine Ratio 20.7 H 10.0-20.0 Serum Glucose 92 74-106 mg/dL Calcium Level 9.7 8.7-10.4 mg/dL Total Bilirubin 1.2 H 0.2-1.0 mg/dL Aspartate Amino Transferase (AST) 22 13-40 U/L Alanine Aminotransferase (ALT) 23 7-40 U/L Alkaline Phosphatase 91 46-116 U/L Troponin I High Sensitivity 77 *H </=34 ng/L Total Protein 7.0 5.7-8.2 g/dL Albumin 4.7 3.2-4.8 g/dL SEPSIS Sepsis Screen Date sepsis recognized/suspect: Sep 16, 2025 Time Sepsis recognized/suspect: 1053 Recent Procedure: No On Antibiotic Therapy: No Respiratory Rate >20: No Heart Rate >90: No Temp<36 C (96.8 F) or >38.3 C: No SBP <90 or MAP <65 mmHG: No New Acute Mental Status Change: No Is the patient on CPAP, BIPAP,: No Physician Orders Chest Portable (09/16/25 11:57) Electrocardigram (09/16/25 11:57) Admit (09/16/25 15:50) Code Status (09/16/25 15:50) Vital Signs .PER UNIT PROTOCOL (09/16/25 15:50) Review Orders With Adm.Md (09/16/25 15:50) Notify Md Of Changes From Base (09/16/25 15:50) Advance Directive (09/16/25 15:50) Patient Condition (09/16/25 15:50) Allergies (09/16/25 15:50) Morphine Sulfate Injection (09/16/25 16:00) Stat Ekg For Chest Pain (09/16/25 15:50) Notify Md Of Changes From Base (09/16/25 15:50) Auto Technician For 24 Hours (09/16/25 15:50) Emergency Dysrhythmia Protocol (09/16/25 15:50) Rhythm Strips Once Every Shift (09/16/25 15:50) Nitroglycerin Sublingual (Ntrostat Subli (09/16/25 16:00) Oxygen By Nasal Cannula (09/16/25 15:50) Methylprednisolone Sod Succ (Solu Medrol (09/16/25 22:00) Azithromycin Tablet (Zithromax Tablet) (09/17/25 10:00) Levalbuterol Hcl (Xopenex Medneb) (09/16/25 18:00) Ipratropium Medneb (Atrovent Medneb) (09/16/25 18:00) Urinalysis (09/16/25 15:53) Drug Screen (09/16/25 15:53) Covid19 Antigen [place] (09/16/25 ) Rapid Influenza A&B (09/16/25 15:53) Vital Signs Date Time Temp Pulse Resp B/P (MAP) Pulse Ox O2 Delivery O2 Flow Rate FiO2 09/16/25 15:00 64 17 147/68 (94) 98 09/16/25 13:04 18 95 Room Air* 0 21 09/16/25 12:50 57 16 136/70 (92) 97 09/16/25 12:19 52 09/16/25 10:50 16 97 Room Air 09/16/25 10:50 97.9 55 16 157/92 (113) 97 97.9 09/16/25 10:27 52 09/16/25 10:15 97.7 51 18 175/73 97 97.7 Laboratory Tests Test 09/16/25 12:34 White Blood Count 4.9 10^3/uL (4.4-10.8) Medications Medications Dose Ordered Sig/Bossman Route Start Time Stop Time Status Last Admin Dose Admin Albuterol 5 mg ONCE ONCE NEB 09/16/25 12:00 09/16/25 12:01 DC 09/16/25 13:03 5 MG Ipratropium [place] 0.5 mg ONCE ONCE NEB 09/16/25 12:00 09/16/25 12:01 DC 09/16/25 13:03 0.5 MG Assessment/Plan Assessment/Plan #Acute hypoxic respiratory failure, likely due to #Acute COPD exacerbation with pneumonitis #Concerns about possible post viral pneumonia IV fluids Ceftriaxone 1g IV Doxycycline 100mg IV Medneb: levalbuterol, Ipatropium, mucomyst Q4H Methylprednisolone 40mg po bid Sputum culture #R/O ACS NSTEMI, likely type II EKG ECHO Telemetry Serial Troponin: 77 Cardiology consult Aspirin 81mg po daily Atorvastatin 40mg po at night #Hx of aortic heart valve narrowing, aortic root dilation Eliquis 5mg bid ECHO #Rule out DVT Levonox 40mg sc US doppler kurtis leg D-Dimer #Chronic Hypertensive heart disease with possible systolic disfunction. Losartan 25mg po daily Nifedipine 30mg po daily #Chronic Hyperlipidemia Atorvastatin 40mg at night #Chronic anxiety disorder Med reconciliation Diet Cardiac diet DVT prophylaxis: Patient on Eliquis GI prophylaxis Protonix: pantoprazole Code status: full code Disposition: Telemetry PCP: Dr. Josias Severino Patient's status and plan discussed with the patient >30min. Case discussed with Dr. Hayden Plan discussed with: Patient My Orders Orders - CHAPITO MCCARTNEY RESIDENT Procedure Category Date Status Time Admit ADMIT 09/16/25 Transmitted 15:50 Code Status CODE 09/16/25 Transmitted 15:50 Vital Signs DAMIAN 09/16/25 In Process 15:50 Review Orders With DAMIAN 09/16/25 In Process Adm. 15:50 Notify Of Changes DAMIAN 09/16/25 In Process From Base 15:50 Advance Directive DAMIAN 09/16/25 In Process 15:50 Patient Condition ORDERS 09/16/25 Transmitted 15:50 Allergies DAMIAN 09/16/25 In Process 15:50 Morphine Sulfate PHA 09/16/25 Logged Injection 16:00 Stat Ekg For Chest [facility] 09/16/25 In Process Pain 15:50 Notify Of Changes [facility] 09/16/25 In Process From Base 15:50 Auto Technician For [facility] 09/16/25 In Process 24 Hours 15:50 Emergency Dysrhythmia [facility] 09/16/25 In Process Protocol 15:50 Rhythm Strips Once [facility] 09/16/25 In Process Every Shift 15:50 Nitroglycerin [facility] 09/16/25 Logged Sublingual (Ntrostat 16:00 Oxygen By Nasal RT 09/16/25 Transmitted Cannula 15:50 Methylprednisolone PHA 09/16/25 Transmitted Sod Succ (Solu Medrol 22:00 Azithromycin Tablet PHA 09/17/25 Transmitted (Zithromax Tablet) 10:00 Levalbuterol Hcl PHA 09/16/25 Transmitted (Xopenex Medneb) 18:00 Ipratropium Medneb PHA 09/16/25 Transmitted (Atrovent Medneb) 18:00 Urinalysis LAB 09/16/25 Transmitted 15:53 Drug Screen LAB 09/16/25 Transmitted 15:53 Covid19 Antigen [facility] LAB 09/16/25 Transmitted Rapid Influenza A&B LAB 09/16/25 Transmitted 15:53 Visit Coding STANDARD RES Billing Provider: SAVI ACEVEDO MD Date of Service if different f: Sep 16, 2025 Common Visit Codes: [id number] INP/OBS CARE (HIGH) Secondary Visit Codes: 52044-[id number] CARE PLAN 30 MINUTES CHAPITO MCCARTNEY RESIDENT Sep 16, 2025 16:03
[2025-09-16] MEDS: AZITHROMYCIN 250 MG TAB PO ONE (17:07)
[2025-09-16 17:44] LABS: Triglycerides 118 mg/dL (< 150)
[2025-09-16 17:46] LABS: Cholesterol 199 mg/dL (< 200); HDL Cholesterol 67 mg/dL (40-59)
--- NOTE | 2025-09-16 19:05 | DVH ---
Bilateral lower extremity venous duplex CLINICAL HISTORY: R/O DVT COMPARISON: US BILAT LOWER DVT on DOS: 03/31/24, US BILAT LOWER DVT on DOS: 03/19/24 TECHNIQUE: Duplex Doppler evaluation of the deep venous systems of both lower extremities from the common femoral veins to the popliteal veins including color Doppler and spectral/pulsed waveform analysis was performed. FINDINGS: RIGHT SIDE: The common femoral vein demonstrates appropriate compressibility and waveform variability. There is compressibility/patency of the great saphenous vein at the proximal thigh. The femoral vein demonstrates appropriate compressibility and waveform variability. The deep femoral vein demonstrates appropriate compressibility and waveform variability. The popliteal vein demonstrates appropriate compressibility and waveform variability. There is normal compressibility at the tibioperoneal trunk. LEFT SIDE: The common femoral vein demonstrates appropriate compressibility and waveform variability. There is compressibility/patency of the great saphenous vein at the proximal thigh. The femoral vein demonstrates appropriate compressibility and waveform variability. The deep femoral vein demonstrates appropriate compressibility and waveform variability. The popliteal vein demonstrates appropriate compressibility and waveform variability. There is normal compressibility at the tibioperoneal trunk. IMPRESSION: 1. No right or left femoropopliteal venous thrombosis.
[2025-09-16 19:06] LABS: COVID19 ANTIGEN SOFIA FIA NEGATIVE (NEGATIVE)
[2025-09-16 19:08] LABS: INR 0.98 (0.9-1.15); Partial Thromboplastin Time 25.0 SEC (24.5-34.5); Prothrombin Time 10.4 sec (9.3-11.8)
[2025-09-16] MEDS: ACETYLCYSTEINE 20%(200MG/ML) SOL 4ML NEB SCH (19:32)
[2025-09-16] MEDS: IPRATROPIUM BROM 0.5 MG/2.5ML INH SOL NEB PRN (19:32)
[2025-09-16 20:25] VITALS: PULSE 5; RESP 13; O2SAT 98
[2025-09-16] MEDS: ENOXAPARIN SOD 40 MG/0.4 ML SYRINGE SC ONE (21:10)
[2025-09-16 21:41] VITALS: PULSE 54; RESP 18; O2SAT 99
[2025-09-16] MEDS: ATORVASTATIN 20 MG TAB PO SCH (22:37)
[2025-09-16] MEDS: methylPREDNISolone SOD SUCC 40 MG/ML VL IV SCH (22:37)
[2025-09-16] MEDS: APIXABAN 5 MG TAB PO SCH (22:37)
[2025-09-16] MEDS: DOXYCYCLINE 100MG/100ML 100 ML IV SCH (22:57)
[2025-09-16 23:50] VITALS: PULSE 64; RESP 16; O2SAT 100
[2025-09-16 23:56] VITALS: PULSE 62; RESP 16; O2SAT 100
[2025-09-17] VITALS (15 sets, daily range): BP systolic 101–132; BP diastolic 54–68; PULSE 51–85; RESP 16–19; TEMP 97.5–98.4; O2SAT 91–100
[2025-09-17 07:03] LABS: Hematocrit 39.7 % (36.0-46.0); Hemoglobin 13.7 g/dL (12.2-16.2); Mean Corpuscular Hemoglobin 32.4 pg (28.0-32.0); Mean Corpuscular Volume 94.1 fL (80.0-100.0); Nucleated Red Blood Cells % 0.0 %
[2025-09-17] MEDS: LEVALBUTEROL HCL 1.25 MG/3 ML NEB NEB PRN (08:27)
[2025-09-17 08:32] LABS: Chloride 104 mmol/L (98-107); Potassium 4.7 mmol/L (3.5-5.1); Sodium 144 mmol/L (136-145)
[2025-09-17 08:33] LABS: Anion Gap 13 (5-15); Calcium 9.6 mg/dL (8.7-10.4); Carbon Dioxide 27 mmol/L (20-31)
[2025-09-17 08:38] LABS: BUN/Creatinine Ratio 12.7 (10.0-20.0); Blood Urea Nitrogen 10 mg/dL (9-23); Glucose 99 mg/dL (74-106)
[2025-09-17] MEDS ORDERED: AZITHROMYCIN 250 MG TAB PO SCH (10:00)
[2025-09-17] MEDS ORDERED: ENOXAPARIN SOD 40 MG/0.4 ML SYRINGE SC SCH (10:00)
[2025-09-17] MEDS: PANTOPRAZOLE 40 MG/10 ML VIAL INJ IV SCH (10:01)
[2025-09-17] MEDS: LOSARTAN POTASSIUM 25 MG TAB PO SCH (10:02)
[2025-09-17] MEDS: NIFEdipine 10 MG CAP PO SCH (10:02)
--- NOTE | 2025-09-17 11:36 | DVHINCON2 ---
Date Seen: Sep 17, 2025 Referring Physician MD Mitchell Reason for Consultation Elevated troponin level History of Present Illness This is a pleasant 74-year-old female who presented to the emergency room with a chief complaint of shortness of breath for two days. The patient complains of s hortness of breath associated with chest congestion and a productive cough with yellow sputum. She also reports a near syncopal event about three weeks ago when she was lifting something heavy in her backyard. The patient has a history of aortic valve disease with Dr. Johnson (primary clearing inspector) referring her as an outpatient to [facility] where she was evaluated last year by Dr. Dickson and deemed not be a candidate for an aortic valve replacement. Recommendations included yearly follow-ups for further assessment with latest appointment completed two months ago and recommended for a follow-up in 2025. Denies syncopal events, worsening exertional SOB, or chest pain. A 12 lead electrocardiogram revealed a sinus bradycardia rhythm at 52 bpm. Baseline troponin level is 77 ng/L. Significant medical history includes aortic valve stenosis, ascending aortic aneurysm measuring 5.1 cm (02/2024), hypertension, dyslipidemia, severe COPD with a history of endotracheal intubations, history of pneumonia, and obesity. Past Medical History Past medical history reviewed. No other significant than mentioned above. Past Surgical History Right shoulder Family History: Alzheimer's disease FH: dementia G8 MOTHER Prostate carcinoma G8 FATHER Family History Family history reviewed. Social History Denies the use of illicit drugs, alcohol, or tobacco use. Allergies: Coded Allergies: Iodine (Verified Allergy, Mild, 03/22/24) itching 20 years ago Home Meds Active Scripts Azithromycin (ZITHROMAX TABLET) 250 Mg Tb, 250 MG PO DAILY, #6 TAB Prov:ANGELA MALDONADO MD 11/17/24 Lorazepam (Ativan) 0.5 Mg Tab, 1 TAB PO BID PRN, #20 TAB Prov:ANGELA MALDONADO MD 11/17/24 Albuterol Sulfate (Albuterol Sulfate Hfa) 108 Mcg/Act Aer, 108 MCG IN Q4HP PRN for 10 Days, #1 AER Prov:IMELDA TOBAR MD 09/15/24 Albuterol Sulfate (Albuterol Sulfate) 0.083 % Neb, 1 VIAL NEB Q4HPRN, #50 VIAL Prov:IMELDA TOBAR MD 09/15/24 Apixaban Base (ELIQUIS) 5 Mg Tab, 5 MG PO BID, #90 TAB Prov:SRINIVAS BLANCHARD MD 04/01/24 Reported Medications Losartan Potassium (Losartan Potassium) 25 Mg Tab, 1 TAB PO DAILY for 30 Days, #30 11/15/24 Escitalopram Oxalate (ESCITALOPRAM OXALATE) 10 Mg Tab, 1 TAB PO DAILY 09/24/24 Pantoprazole Sodium Sesquihydr (Protonix) 40 Mg Tab, 1 TAB PO DAILY for 30 Days, #30 05/26/24 Potassium Chloride (K-Tab) 20 Meq Tab, 1 TAB PO DAILY for 90 Days, #90 05/26/24 Benzonatate (Benzonatate) 100 Mg Cap, 1 CAP PO TID 05/26/24 Atorvastatin Calcium (ATORVASTATIN CALCIUM) 40 Mg Tab, 1 TAB PO DAILY 05/26/24 Nifedipine (Nifedipine Er) 30 Mg Tab, 1 TAB PO DAILY for 30 Days, #30 03/20/24 Home Meds Home medications reviewed. Current Medications Current Medications Medications (Trade) Dose Ordered Sig/Bossman Route PRN Reason Start Time Stop Time Status Last Admin Morphine Sulfate 2 mg Q30M PRN IV FOR CHEST PAIN 09/16/25 16:00 Nitroglycerin (Ntrostat Sublingual) 0.4 mg Q5MINP PRN SL FOR CHEST PAIN 09/16/25 16:00 Methylprednisolone Sodium Succinate (Solu Medrol) 40 mg BID IV 09/16/25 22:00 09/17/25 10:01 Azithromycin (Zithromax Tablet) 500 mg DAILY PO 09/17/25 10:00 09/16/25 18:19 DC Levalbuterol HCl (Xopenex Medneb) 0.625 mg Q4HP PRN NEB SHORTNESS OF BREATH 09/16/25 18:00 09/17/25 08:27 Ipratropium [place] (Atrovent Medneb) 0.5 mg Q4HPRN PRN NEB SHORTNESS OF BREATH 09/16/25 18:00 09/16/25 23:50 Enoxaparin Sodium (Lovenox) 40 mg DAILY SC 09/17/25 10:00 09/16/25 18:12 DC Pantoprazole Sodium (Protonix) 40 mg DAILY IV 09/17/25 10:00 09/17/25 10:01 Aspirin 81 mg DAILY PO 09/17/25 10:00 09/17/25 10:02 Atorvastatin Calcium (Lipitor) 40 mg HS PO 09/16/25 22:00 09/16/25 22:37 Acetylcysteine (Mucomyst Inhalation 20%) 200 mg Q6HR NEB 09/16/25 18:00 09/17/25 08:27 Nifedipine (Procardia Capsule) 30 mg DAILY PO 09/17/25 10:00 09/17/25 10:02 Losartan Potassium (Cozaar Tablet) 25 mg DAILY PO 09/17/25 10:00 09/17/25 10:02 Apixaban (Eliquis) 5 mg BID PO 09/16/25 22:00 09/17/25 10:02 Ceftriaxone Sodium 50 ml @ 100 mls/hr DAILY@09 IV 09/17/25 09:00 09/17/25 10:01 Doxycycline Hyclate 100 ml @ 50 mls/hr Q12H IV 09/16/25 18:30 09/17/25 07:05 Review of Systems Constitutional: No symptom reported Ears, Nose, & Throat: No symptom reported Eyes: No symptom reported Neurological: Dizziness Pulmonary/Respiratory: SOB Cardiovascular: No symptom reported Gastrointestinal: No symptom reported Genitourinary: No symptom reported Musculoskeletal: No symptom reported Skin: No symptom reported Psychiatric: No symptom reported Endocrine: No symptom reported Hemotologic/Lymphatic: No symptom reported Vital Signs Vital Signs Date Time Temp Pulse Resp B/P (MAP) Pulse Ox O2 Delivery O2 Flow Rate FiO2 09/17/25 10:02 131/67 09/17/25 08:40 64 18 98 09/17/25 08:33 97.7 97.7 09/17/25 08:30 Nasal Cannula* 1 Physical Exam General Appearance: Cooperative. Well developed. Obese. In no acute distress Head Exam: Normal inspection Neck Exam: Normal inspection. Non-tender. Normal alignment Pulmonary/Respiratory: Chest non-tender. Clear bilateral breath sounds Cardiovascular/Chest: Regular rate and rhythm. S1, S2. Sinus bradycardia. Systolic murmur V/ radiates to RSB. No JVD. Peripheral Pulses: 2+ Radial (R). 2+ Radial (L). 2+ Pedal (R). 2+ Pedal (L) Abdominal Exam: Normal bowel sounds. Ankle Exam: Negative ankle edema Lower extremities: Negative lower extremity edema Neuro/Mental Status: A&O x4. Coherent Thoughts/Psych: Normal thought pattern. Appropriate mood and affect. Good judgement and insight Appearance: In no acute distress Skin Exam: Normal inspection. Normal color. Warm. Dry Labs/Diagnostic Data Labs Test 09/17/25 06:15 09/16/25 18:32 09/16/25 18:30 09/16/25 15:53 Range/Units White Blood Count 4.5 4.4-10.8 10^3/uL Red Blood Count 4.22 4.0-5.20 10^6/uL Hemoglobin 13.7 12.2-16.2 g/dL Hematocrit 39.7 36.0-46.0 % Mean Corpuscular Volume 94.1 80.0-100.0 fL Mean Corpuscular Hemoglobin 32.4 H 28.0-32.0 pg Mean Corpuscular Hemoglobin Concent 34.4 32.0-36.0 g/dL Red Cell Distribution Width 13.8 11.8-14.3 % Platelet Count 226 140-450 10^3/uL Mean Platelet Volume 7.5 6.9-10.8 fL Neutrophils (%) (Auto) 55.6 37.0-80.0 % Lymphocytes (%) (Auto) 24.1 10.0-50.0 % Monocytes (%) (Auto) 12.4 H 0.0-12.0 % Eosinophils (%) (Auto) 7.0 0.0-7.0 % Basophils (%) (Auto) 0.9 0.0-2.0 % Neutrophils # (Auto) 2.5 1.6-8.6 10 ^3/uL Lymphocytes # (Auto) 1.1 0.4-5.4 10 ^3/uL Monocytes # (Auto) 0.6 0-1.3 10 ^3/uL Eosinophils # (Auto) 0.3 0-0.8 10 ^3/uL Basophils # (Auto) 0 0-0.2 10 ^3/uL Nucleated Red Blood Cells 0.0 % Sodium Level 144 136-145 mmol/L Potassium Level 4.7 3.5-5.1 mmol/L Chloride Level 104 98-107 mmol/L Carbon Dioxide Level 27 20-31 mmol/L Anion Gap 13 5-15 Blood Urea Nitrogen 10 9-23 mg/dL Creatinine 0.79 0.550-1.02 mg/dL Glomerular Filtration Rate Calc 78 >90 mL/min BUN/Creatinine Ratio 12.7 10.0-20.0 Serum Glucose 99 74-106 mg/dL Calcium Level 9.6 8.7-10.4 mg/dL Prothrombin Time 10.4 9.3-11.8 sec Prothrombin Time INR 0.98 0.9-1.15 Activated Partial Thromboplast Time 25.0 24.5-34.5 SEC D-Dimer, Quantitative 0.49 0.0-0.49 mg/L FEU SARS-CoV-2 Antigen (Rapid) Negative NEGATIVE Influenza Type A Antigen Negative Negative Influenza Type B Antigen Negative Negative Test 09/16/25 12:34 Range/Units Hemoglobin A1c 5.6 <5.7 % A1C Total Bilirubin 1.2 H 0.2-1.0 mg/dL Aspartate Amino Transferase (AST) 22 13-40 U/L Alanine Aminotransferase (ALT) 23 7-40 U/L Alkaline Phosphatase 91 46-116 U/L Troponin I High Sensitivity 77 *H </=34 ng/L B-Type Natriuretic Peptide 103.97 0-100 pg/mL Total Protein 7.0 5.7-8.2 g/dL Albumin 4.7 3.2-4.8 g/dL Triglycerides Level 118 < 150 mg/dL Cholesterol Level 199 < 200 mg/dL LDL Cholesterol 116 H < 100 mg/dL HDL Cholesterol 67 H 40-59 mg/dL Thyroid Stimulating Hormone (TSH) 2.52 0.55-4.78 uIU/mL Assessment Hypertensive urgency NSTEMI, likely type 2 secondary to above Aortic valve disease, moderate degree Ascending aortic aneurysm Dyslipidemia Severe COPD Obesity Plan/Recommendation (Dr. Loving) The patient underwent a transthoracic echocardiogram revealing an LVEF of 55-60% with mild left ventricular hypertrophy, normal LV wall motion, no significant valvular pathology, and mild aortic root dilatation with diameter measuring 4.1 cm. Likely NSTEMI type 2 secondary to hypertensive urgency. Continue aggressive blood pressure control. Patient advised to follow up as scheduled with Dr. Dickson at [facility]. No further cardiac workup indicated at this time. Kindly call if in need of further recommendations. Thank you for allowing us to participate in this patient's care. This medical document was created using an electronic medical record system with voice recognition software and computerized dictation system. Although this do cument has been carefully reviewed, there might still be some phonetic and typographical errors. Occasional wrong-word or ``sound-alike substitutions may have occurred due to the inherent limitations of voice recognition software. These areas are purely typographical due to imperfections of the software programs and do not reflect any compromise in the patient's medical care. Please read the chart carefully and recognize, using context, where these substitutions have occurred. Plan discussed with: Patient, Other NYHA Physical activity limitations: NA Date of Service: Sep 17, 2025 Billing Provider: ANIYA SMITH Cardiology Common Codes: 31229-[id number] INP/OBS CARE (High) ANIYA SMITH Sep 17, 2025 11:36
--- NOTE | 2025-09-17 15:04 | DVHSR ---
APPROVED REPORT EXAM: LIMITED Two-dimensional and M-mode echocardiogram with Doppler and color Doppler. Blood Pressure: 131/67 mmHg INDICATION Elevated Troponin RISK FACTORS Height: 5' 9", Weight: 217 DIMENSIONS LVDd 4.4 (3.8-5.7cm) LA (2D) 3.6 (1.9-4.0cm) Aortic Root 4.1 (2.0-3.7cm) LVDs 3.1 (2.5-4.0cm) LA (MM) (1.9-4.0cm) Aortic Cusp Exc 1.3 (1.5-2.0cm) EF (%) 57.0 (55-70%) Rt. Atrium 3.7 (1.9-4.0cm) Asc. Aorta cm IVSd 1.2 (0.7-1.1cm) RV (D) (1.8-2.4cm) PWd 1.2 (0.7-1.1cm) Mitral Valve Mitral Mitral Stenosis E wave 0.90m/s MV Mean GR. mmHg A wave 1.00m/s MV Peak GR. mmHg E/A ratio 0.9 2D MVA cm2 Aortic Valve Aortic Valve Aortic Stenosis V1 1.20m/s AO Mean GR. 32mmHg V2 3.50m/s AO Peak GR. 49mmHg LVOT Diameter 2.3 (1.8-2.4cm) Doppler KATIE 1.42cm2 Other Information Quality : Technically Limited Rhythm : Technically limited study due to body habitus and patient position. Conclusion 1-Normal right and left ventricle systolic function with estimated ejection fraction of 55-60%, there is a mild left ventricle hypertrophy, normal LV wall motion. The left ventricle diastolic function is normal 2-No significant valvular pathology was seen 3-mild aortic root dilatation with diameter measures 4.1 cm
[2025-09-17] MEDS: CITALOPRAM HYDROBR 20 MG TAB PO ONE (18:21)
--- NOTE | 2025-09-17 18:28 | DVHPN2 ---
Reviewed: H&P Changes from previous H/P or p: No Changes General: Per HPI Eyes: No Pain, No Vision change, No Conjunctivae inflammation, No Eyelid inflammation, No Other, No Redness ENT: No Ear pain, No Ear discharge, No Nose pain, No Nose discharge, No Nose congestion, No Mouth pain, No Mouth swelling, No Throat pain, No Throat swelling, No Other Cardiovascular: No Chest Pain, No Palpitations, No Orthopnea, No Paroxysmal Noc. Dyspnea, No Edema, No Lt Headedness, No Other Respiratory: Cough (Productive wet cough ); No Dry; Shortness of breath; No SOB with excertion; Wheezing; No Hemoptysis, No Pleuritic Pain; Sputum (Yellow sputum ); No Other Gastrointestinal: No Nausea, No Vomiting, No Abdominal Pain, No Diarrhea, No Constipation, No Melena, No Hematochezia, No Other Genitourinary: No Dysuria, No Frequency, No Incontinence, No Hematuria, No Retention, No Other Musculoskeletal: No other, No neck pain, No shoulder pain, No arm pain, No back pain, No hand pain, No leg pain, No foot pain Skin: No Rash, No Lesions, No Jaundice, No Bruising, No Other Objective Vitals Vital Signs Date Time Temp Pulse Resp B/P (MAP) Pulse Ox O2 Delivery O2 Flow Rate FiO2 09/17/25 16:30 97.8 85 17 115/67 (83) 95 97.8 09/17/25 08:30 Nasal Cannula* 1 24 Intake/Output Intake and Output 09/17/25 07:00 Intake Total 350 ml Balance 350 ml Intake Oral 350 ml Exam General Appearance: Alert, Oriented X3, Cooperative, mild distress HEENT: Atraumatic, PERRLA, EOMI, Mucous membr. moist/pink Respiratory: Other (Bilateral whezzing and roncus. ) Cardiovascular: Regular rate, Normal S1, Normal S2, No murmurs Abdominal: Normal bowel sounds, Soft, No tenderness Extremities: No clubbing, No cyanosis, No edema, Normal pulses, No tenderness/swelling Skin: No rashes, No breakdown, No significant lesion Neuro: Normal gait, Normal speech, Strength at 5/5 X4 ext, Normal tone, Sensation intact, Cranial nerves 3-12 NL, Reflexes 2+ Psych/Mental Status: Mental status NL, Mood NL, Other Medications Current Medications Medications Dose Ordered Sig/Bossman Route Start Time Stop Time Status Last Admin Dose Admin Morphine Sulfate 2 mg Q30M PRN IV 09/16/25 16:00 Nitroglycerin 0.4 mg Q5MINP PRN SL 09/16/25 16:00 Methylprednisolone Sodium Succinate 40 mg BID IV 09/16/25 22:00 09/17/25 10:01 40 MG Levalbuterol HCl 0.625 mg Q4HP PRN NEB 09/16/25 18:00 09/17/25 12:53 0.625 MG Ipratropium [place] 0.5 mg Q4HPRN PRN NEB 09/16/25 18:00 09/17/25 12:53 0.5 MG Pantoprazole Sodium 40 mg DAILY IV 09/17/25 10:00 09/17/25 10:01 40 MG Aspirin 81 mg DAILY PO 09/17/25 10:00 09/17/25 10:02 81 MG Atorvastatin Calcium 40 mg HS PO 09/16/25 22:00 09/16/25 22:37 40 MG Acetylcysteine 200 mg Q6HR NEB 09/16/25 18:00 09/17/25 12:53 200 MG Nifedipine 30 mg DAILY PO 09/17/25 10:00 09/17/25 10:02 30 MG Losartan Potassium 25 mg DAILY PO 09/17/25 10:00 09/17/25 10:02 25 MG Apixaban 5 mg BID PO 09/16/25 22:00 09/17/25 10:02 5 MG Ceftriaxone Sodium 50 ml @ 100 mls/hr DAILY@09 IV 09/17/25 09:00 09/17/25 10:01 100 MLS/HR Doxycycline Hyclate 100 ml @ 50 mls/hr Q12H IV 09/16/25 18:30 09/17/25 07:05 50 MLS/HR Citalopram Hydrobromide 20 mg DAILY PO 09/18/25 10:00 Alprazolam 0.25 mg Q6HP PRN PO 09/17/25 17:45 Laboratory Results Laboratory Tests 09/17/25 06:15 Chemistry Test 09/17/25 06:15 Calcium Level 9.6 mg/dL (8.7-10.4) Coagulation Test 09/16/25 18:32 Prothrombin Time 10.4 sec (9.3-11.8) Prothrombin Time INR 0.98 (0.9-1.15) Activated Partial Thromboplast Time 25.0 SEC (24.5-34.5) D-Dimer, Quantitative 0.49 mg/L FEU (0.0-0.49) Labs and/or images reviewed: Labs reviewed by me, Image(s) reviewed by me Assessment/Plan Assessment/Plan Chandrika Adams is a 74-year-old female with past medical history of COPD, with recurrent pneumonia, RI, hyperlipidemia, aortic heart valve narrowing, aortic root dilation, anxiety and hypertension. The patient came to [facility] with chief complain of 3 days of progressively worsen dyspnea and wheezing, associated with flu-like symptoms: fever, chills and productive cough with yellow sputum. On further questioning, the patient reports recurrent pneumonias and previous intubation at [facility] in 2023. The patient denies any chest pain, palpitation, leg swelling, sick contacts, recent travel or other symptoms. In the ED, Troponins were 77, BP: 147/68mmHg. The patient will be admitted for further diagnosed and management. Cardiovascular: HTN, RI, hyperipidemia, valve insufficiency Pulmonary: COPD Psych: Anxiety 09/17: Patient missing her anxiety medication we will start escitalopram equivalent. We will continue also prn Xanax. Continuing treatment for COPD pneumonia. Patient has moderate AV disease we will need outpatient follow up with specialists. Cardiology recommends outpatient follow up, NSTEMI type 2 from hypertensive urgency. Cardiology signs of. We will continue treating with IV antibiotics, patient improving, we will reassess oxygen requirement tomorrow. #Acute hypoxic respiratory failure, likely due to #Acute COPD exacerbation with pneumonitis #Concerns about possible post viral pneumonia IV fluids Ceftriaxone 1g IV Doxycycline 100mg IV Medneb: levalbuterol, Ipatropium, mucomyst Q4H Methylprednisolone 40mg po bid Sputum culture #R/O ACS NSTEMI, likely type II EKG ECHO Telemetry Serial Troponin: 77 Cardiology consult Aspirin 81mg po daily Atorvastatin 40mg po at night #Hx of aortic heart valve narrowing, aortic root dilation Eliquis 5mg bid ECHO #Rule out DVT Levonox 40mg sc US doppler kurtis leg D-Dimer #Chronic Hypertensive heart disease with possible systolic disfunction. Losartan 25mg po daily Nifedipine 30mg po daily #Chronic Hyperlipidemia Atorvastatin 40mg at night #Chronic anxiety disorder Med reconciliation Diet Cardiac diet DVT prophylaxis: Patient on Eliquis GI prophylaxis Protonix: pantoprazole Code status: full code Disposition: Telemetry Plan discussed with: Patient My Orders Orders - SAIV ACEVEDO MD Procedure Category Date Status Time Citalopram Tablet PHA 09/18/25 In Process (Celexa Tablet) 10:00 Alprazolam Tablet PHA 09/17/25 In Process (Xanax Tablet) 17:45 Date of Service: Sep 17, 2025 Billing Provider: SAVI ACEVEDO MD Common Visit Codes: [id number] INP/OBS CARE(HIGH) SAVI ACEVEDO MD Sep 17, 2025 18:28
[2025-09-17] MEDS ORDERED: APIXABAN 5 MG TAB PO SCH (22:00)
[2025-09-17] MEDS: ALPRAZolam 0.25 MG TAB PO PRN (23:52)
[2025-09-18] VITALS (13 sets, daily range): BP systolic 112–129; BP diastolic 63–81; PULSE 62–76; RESP 16–95; TEMP 97.7–98.2; O2SAT 91–100
[2025-09-18 07:02] LABS: Hematocrit 38.8 % (36.0-46.0); Hemoglobin 12.9 g/dL (12.2-16.2); Mean Corpuscular Hemoglobin 31.3 pg (28.0-32.0); Mean Corpuscular Volume 93.8 fL (80.0-100.0); Nucleated Red Blood Cells % 0.0 %
[2025-09-18 07:26] LABS: Alanine Aminotransferase 16 U/L (7-40); Albumin 4.3 g/dL (3.2-4.8); Alkaline Phosphatase 74 U/L (46-116); Anion Gap 9 (5-15); BUN/Creatinine Ratio 14.7 (10.0-20.0); Bilirubin, Total 0.7 mg/dL (0.2-1.0); Blood Urea Nitrogen 11 mg/dL (9-23); Calcium 9.4 mg/dL (8.7-10.4); Carbon Dioxide 24 mmol/L (20-31); Chloride 107 mmol/L (98-107); Potassium 4.3 mmol/L (3.5-5.1); Sodium 140 mmol/L (136-145); Total Protein 6.8 g/dL (5.7-8.2)
[2025-09-18 07:31] LABS: Glucose 160 mg/dL (74-106)
[2025-09-18] MEDS: CITALOPRAM HYDROBR 20 MG TAB PO SCH (09:48)
[2025-09-18] MEDS ORDERED: ALBUAER3 IN (13:22)
[2025-09-18] MEDS ORDERED: AZIT-185 PO (13:22)
--- NOTE | 2025-09-18 19:36 | DVHDSRES ---
Discharge Summary Date of Admission Resident Creating Document: CHAPITO MCCARTNEY RESIDENT Sep 16, 2025 at 15:50 Date of Discharge: Sep 18, 2025 Admitting Diagnosis #Acute hypoxic respiratory failure, likely due to #Acute COPD exacerbation with pneumonitis #Concerns about possible post viral pneumonia #R/O ACS NSTEMI, likely type II #Hx of aortic heart valve narrowing, aortic root dilation #Rule out DVT #Chronic Hypertensive heart disease with possible systolic disfunction. #Chronic Hyperlipidemia #Chronic anxiety disorder Wounds: No wounds on admission Labs/Diagnostic Data: Laboratory Results Test 09/18/25 06:25 09/16/25 18:32 09/16/25 18:30 09/16/25 15:53 White Blood Count 6.7 10^3/uL (4.4-10.8) Red Blood Count 4.13 10^6/uL (4.0-5.20) Hemoglobin 12.9 g/dL (12.2-16.2) Hematocrit 38.8 % (36.0-46.0) Mean Corpuscular Volume 93.8 fL (80.0-100.0) Mean Corpuscular Hemoglobin 31.3 pg (28.0-32.0) Mean Corpuscular Hemoglobin Concent 33.4 g/dL (32.0-36.0) Red Cell Distribution Width 13.5 % (11.8-14.3) Platelet Count 236 10^3/uL (140-450) Mean Platelet Volume 7.5 fL (6.9-10.8) Neutrophils (%) (Auto) 88.3 % (37.0-80.0) Lymphocytes (%) (Auto) 7.9 % (10.0-50.0) Monocytes (%) (Auto) 3.7 % (0.0-12.0) Eosinophils (%) (Auto) 0.0 % (0.0-7.0) Basophils (%) (Auto) 0.1 % (0.0-2.0) Neutrophils # (Auto) 6.0 10 ^3/uL (1.6-8.6) Lymphocytes # (Auto) 0.5 10 ^3/uL (0.4-5.4) Monocytes # (Auto) 0.2 10 ^3/uL (0-1.3) Eosinophils # (Auto) 0 10 ^3/uL (0-0.8) Basophils # (Auto) 0 10 ^3/uL (0-0.2) Nucleated Red Blood Cells 0.0 % Sodium Level 140 mmol/L (136-145) Potassium Level 4.3 mmol/L (3.5-5.1) Chloride Level 107 mmol/L (98-107) Carbon Dioxide Level 24 mmol/L (20-31) Anion Gap 9 (5-15) Blood Urea Nitrogen 11 mg/dL (9-23) Creatinine 0.75 mg/dL (0.550-1.02) Glomerular Filtration Rate Calc 83 mL/min (>90) BUN/Creatinine Ratio 14.7 (10.0-20.0) Serum Glucose 160 mg/dL (74-106) Calcium Level 9.4 mg/dL (8.7-10.4) Total Bilirubin 0.7 mg/dL (0.2-1.0) Aspartate Amino Transferase (AST) 15 U/L (13-40) Alanine Aminotransferase (ALT) 16 U/L (7-40) Alkaline Phosphatase 74 U/L (46-116) Total Protein 6.8 g/dL (5.7-8.2) Albumin 4.3 g/dL (3.2-4.8) Prothrombin Time 10.4 sec (9.3-11.8) Prothrombin Time INR 0.98 (0.9-1.15) Activated Partial Thromboplast Time 25.0 SEC (24.5-34.5) D-Dimer, Quantitative 0.49 mg/L FEU (0.0-0.49) SARS-CoV-2 Antigen (Rapid) Negative (NEGATIVE) Influenza Type A Antigen Negative (Negative) Influenza Type B Antigen Negative (Negative) Test 09/16/25 12:34 Hemoglobin A1c 5.6 % A1C (<5.7) Troponin I High Sensitivity 77 ng/L (</=34) B-Type Natriuretic Peptide 103.97 pg/mL (0-100) Triglycerides Level 118 mg/dL (< 150) Cholesterol Level 199 mg/dL (< 200) LDL Cholesterol 116 mg/dL (< 100) HDL Cholesterol 67 mg/dL (40-59) Thyroid Stimulating Hormone (TSH) 2.52 uIU/mL (0.55-4.78) Other Laboratory Tests 09/18/25 06:25 Brief Hx & Hospital Course: Chandrika Adams is a 74-year-old female with past medical history of COPD, with recurrent pneumonia, HI, hyperlipidemia, aortic heart valve narrowing, aortic root dilation, anxiety and hypertension. The patient came to [facility] with chief complain of 3 days of progressively worsen dyspnea and wheezing, associated with flu-like symptoms: fever, chills and productive cough with yellow sputum. On further questioning, the patient reports recurrent pneumonias and previous intubation at [facility] in 2023. The patient denies any chest pain, palpitation, leg swelling, sick contacts, recent travel or other symptoms. In the ED, Troponins were 77, BP: 147/68mmHg. The patient will be admitted for further diagnosed and management. Cardiovascular: HTN, HI, hyperipidemia, valve insufficiency Pulmonary: COPD Psych: Anxiety Family History: None Smoke: No ALCOHOL: occassional Lives: with Family Domestic Violence: Neg Hospital course: The patient was admitted to [facility] due to respiratory failure. The patient was started on respiratory therapy, IV antibiotics and methylprednisolone. On 09/17/25: the patient was started escitalopram equivalent. Cardiology was onboard due to elevated troponin likely due to NSTEMI type 2 from hypertensive urgency. Cardiology recommended outpatient follow up. On 09/18/25: The patient was evaluated next terminate at bedside. Labs, vital signs and chart were reviewed. The patient reported improvement in shortness of breath. The O2 via NC was discontinued, the patient tolerated well room air. Due to clinical improvement the patient was discharged home with oral antibiotics and symptomatic treatment. The patient will follow up with PCP , d/c clinic and Cardiology in 1 week. Recommendations were given on when to return to the ED. The patient agreed to understand. ROS: Constitutional: No: Sweats, Weakness, Malaise, Other Eyes: No: Pain, Vision change, Conjunctivae inflammation, Eyelid inflammation, Other, Redness ENT: No: Ear pain, Ear discharge, Nose pain, Nose discharge, Nose congestion, Mouth pain, Mouth swelling, Throat pain, Throat swelling, Other Respiratory: No: Dry, SOB with excertion, Hemoptysis, Pleuritic Pain, Wheezing, Other Cardiovascular: No: Chest Pain, Palpitations, Orthopnea, Paroxysmal Noc. Dyspnea, Edema, Lt Headedness, Other Gastrointestinal: No: Nausea, Vomiting, Abdominal Pain, Diarrhea, Constipation, Melena, Hematochezia, Other Genitourinary: No Dysuria, No Frequency, No Incontinence, No Hematuria, No Retention, No Other Musculoskeletal: No: other, neck pain, shoulder pain, arm pain, back pain, hand pain, leg pain, foot pain Skin: No: Rash, Lesions, Jaundice, Bruising, Other Neurological: No: Weakness, Numbness, Incoordination, Change in speech, Confusion, Seizures, Other Physical exam: General Appearance: Alert, Oriented X3, Cooperative, not in distress HEENT: Atraumatic, PERRLA, EOMI, Mucous membr. moist/pink Respiratory: normal lung expansion, bilateral normal breath sounds. No rocus or wheezing. Cardiovascular: Regular rate, Normal S1, Normal S2, No murmurs Abdominal: Normal bowel sounds, Soft, No tenderness Extremities: No clubbing, No cyanosis, No edema, Normal pulses, No tenderness/swelling Skin: No rashes, No breakdown, No significant lesion Neuro: Normal gait, Normal speech, Strength at 5/5 X4 ext, Normal tone, Sensation intact, Cranial nerves 3-12 NL, Reflexes 2+ Psych/Mental Status: Mental status NL, Mood NL, Other Consults/Reason for consult Cardiology: NSTEMI type 2 Condition at Discharge: Stable Final Diagnosis/Problems List #Acute hypoxic respiratory failure, likely due to #Acute COPD exacerbation with pneumonitis #Concerns about possible post viral pneumonia #R/O ACS NSTEMI, likely type II #Hx of aortic heart valve narrowing, aortic root dilation # DVT ruled out #Chronic Hypertensive heart disease with possible systolic disfunction. #Chronic Hyperlipidemia #Chronic anxiety disorder Discharge Disposition: Home SNF Discharge Will this Physician continue t: No Discharge Instruct/Medications Diet: Cardiac 2g Na,low cholest Activity: No Restrictions, As Tolerated Follow Up/Referral: F/U with PCP in 1 week F/U in D/C clinic F/U with cardiology in 1 week. Medications: Azitromicyn 500mg po qd x 5 days Albuterol inhaler Q4h prn for SOB Scheduled Albuterol Sulfate (Albuterol Sulfate), 1 VIAL NEB Q4HPRN Apixaban Base (Eliquis), 5 MG PO BID Atorvastatin Calcium (Atorvastatin Calcium), 1 TAB PO DAILY, (Reported) Azithromycin (Zithromax Tablet), 250 MG PO DAILY Azithromycin (Zithromax Tablet), 500 MG PO DAILY Benzonatate (Benzonatate), 1 CAP PO TID, (Reported) Escitalopram Oxalate (Escitalopram Oxalate), 1 TAB PO DAILY, (Reported) Losartan Potassium (Losartan Potassium), 1 TAB PO DAILY, (Reported) Nifedipine (Nifedipine Er), 1 TAB PO DAILY, (Reported) Pantoprazole Sodium Sesquihydr (Protonix), 1 TAB PO DAILY, (Reported) Potassium Chloride (K-Tab), 1 TAB PO DAILY, (Reported) Scheduled PRN Albuterol Sulfate (Albuterol Sulfate Hfa), 108 MCG IN Q4HP PRN Albuterol Sulfate (Ventolin Mdi), 90 MCG IN Q4HP PRN Lorazepam (Ativan), 1 TAB PO BID PRN Discharge Statement: "Patient was advised to return to the ER or call 911 if any headaches, dizziness, shortness of breath, chest pain, abdominal pain, bleeding, fevers, or worsening of medical condition. Patient was counseled about treatment plan, medications, possible side effects, patientverbalized understanding. All questions were answered to the best of my ability. This discharge took greater then 30 minutes in planning, reviewing documentation, counseling the patient, and discussing with other team members." Discharge Care Plan Instructions Take Rx medications, Notify MD of any issues, Keep list of meds w/ you, Do not drink ETOH/smoke, Call 911 in an emergency, F/U w/ PCP, Educate on timing of meds ASSESSMENT ASSESSMENT Assessment #Acute hypoxic respiratory failure, likely due to #Acute COPD exacerbation with pneumonitis #Concerns about possible post viral pneumonia #R/O ACS NSTEMI, likely type II #Hx of aortic heart valve narrowing, aortic root dilation # DVT ruled out #Chronic Hypertensive heart disease with possible systolic disfunction. #Chronic Hyperlipidemia #Chronic anxiety disorder PCP: Dr. Josias Severino Patient's status and plan discussed with the patient >30min. Case discussed with Dr. Hayden Visit Coding STANDARD RES Billing Provider: SAVI ACEVEDO MD Date of Service if different f: Sep 18, 2025 Common Visit Codes: 69341-OCT/OBS DISCH DAY >30min CHAPITO MCCARTNEY RESIDENT Sep 18, 2025 19:36
[2025-09-18] MEDS ORDERED: ACETYLCYSTEINE 20%(200MG/ML) SOL 4ML NEB SCH (22:00)
== END 2025-09-18 15:00 | disposition home or self-care (01) | DRG 193 ==
LOC: ER 10:13 → OVERFLOW 15:50 → TELE-WESTW 15:52
PROVIDERS: ATTEND Emergency Medicine
DX: J12.9 Viral pneumonia, unspecified (principal); I21.A1 Myocardial infarction type 2; J96.01 Acute respiratory failure with hypoxia; I16.0 Hypertensive urgency; J44.0 Chronic obstructive pulmonary disease with (acute) lower respiratory infection; Z79.01 Long term (current) use of anticoagulants; I71.21 Aneurysm of the ascending aorta, without rupture; E66.9 Obesity, unspecified; J44.1 Chronic obstructive pulmonary disease with (acute) exacerbation; Z20.822 Contact with and (suspected) exposure to COVID-19; J98.4 Other disorders of lung; E78.5 Hyperlipidemia, unspecified; F41.9 Anxiety disorder, unspecified; I10 Essential (primary) hypertension; Z79.2 Long term (current) use of antibiotics; Z79.899 Other long term (current) drug therapy; I25.2 Old myocardial infarction; Z82.0 Family history of epilepsy and other diseases of the nervous system; Z68.32 Body mass index [BMI] 32.0-32.9, adult
CPT/HCPCS: 36415; 71045; 80048; 80053; 80061; 83036; 83880; 84443; 84484; 85025; 85379; 85610; 85730; 87426; 87804; 93005; 93306; 93970; 94640; G0378; J2470